=== PATIENT | female | born 1955 | race African-American/Black ===

== ENCOUNTER 2016-05-05 18:42 | Emergency (ER) | payer BC ==
[2016-05-05 18:58] VITALS: BP 121/64
[2016-05-05] MEDS ORDERED: NS 0.9% 1000 ML* 1,000 ML IV ONE (20:12)
[2016-05-05] MEDS ORDERED: Famotidine IV* 10 MG/ML 2 ML (20 mg) IV ONE (20:12)
[2016-05-05] MEDS ORDERED: Ketorolac INJ* 30 MG/ML 1 ML VIAL IV ONE (20:12)
[2016-05-05 20:43] LABS: Hematocrit 38 % (35-47); Hemoglobin 12.3 g/dl (12.0-16.0); Mean Corpuscular HGB Conc 32 g/dl (31-36); Mean Corpuscular Hemoglobin 26 pg (27-31); Mean Corpuscular Volume 80 fL (80-97); Mean Platelet Volume 8 um3 (7.4-10.4); Red Cell Distribution Width 17 % (10.5-15); White Blood Count 10.6 10^3/ul (3.5-10.8)
[2016-05-05 20:47] LABS: Urine Bilirubin Negative (Negative); Urine Glucose Negative (Negative); Urine Nitrite Negative (Negative)
--- NOTE | 2016-05-05 20:53 | RAD ---
INDICATION: Chest pain between the shoulder blades persistent all day. Chest pressure. COMPARISON: January 24, 2015 CT abdomen and January 09, 2013 chest radiograph. TECHNIQUE: Dual energy PA and routine lateral views of the chest were obtained. REPORT: Elevated lung volumes with increased AP thoracic diameter. No alveolar consolidation, focal pulmonary lesion, pleural effusion, pneumothorax. Negative for cardiomegaly. Unremarkable central pulmonary vasculature. Fusiform midline retrocardiac density corresponds with a hiatal hernia based on correlation with prior CT. IMPRESSION: Stigmata of probable chronic obstructive pulmonary disease. No acute cardiopulmonary process evident.
[2016-05-05 20:56] LABS: BUN/Creatinine Ratio 12.7 (8-20); Calcium 9.1 mg/dL (8.6-10.3); EGFR Non-African American 96.4 (>60); Globulin 3.1 g/dL (2-4); Magnesium 1.8 mg/dL (1.9-2.7); Potassium 3.8 mmol/L (3.5-5.0); Total Bilirubin 0.4 mg/dL (0.2-1.0); Total Protein 7.1 g/dL (6.4-8.9)
[2016-05-05] MEDS ORDERED: Methocarbamol TAB* 500 MG PO ONE (21:24)
[2016-05-05] MEDS ORDERED: Magnesium Oxide TAB* 400 MG PO ONE (21:24)
[2016-05-05] MEDS ORDERED: HYDROmorphone INJ* 1 MG/ML CARPUJECT SYRINGE IV SLOW PU ONE (21:47)
--- NOTE | 2016-05-05 23:46 | ED ---
Abby Giles Anna, scribed for Umang Murphy MD on 05/05/16 at 2013 . HPI Chest Pain - HPI Summary HPI Summary: Patient is a 61 y/o female coming to [facility] presenting with burning chest pain that began this morning. It has radiated to her back and is described as a sharp pain there, especially severe on her left side, radiating downwards. The pain is exacerbated by deep breaths and movement. Denies nausea, vomiting, diarrhea, and constipation. She ate oatmeal and [place] food today. She had a recent upper ear infection that was treated with antibiotics. She had a fall last week but did not hurt anything at the time. - History of Current Complaint Chief Complaint: EDChestPainROMI Time Seen by Provider: 05/05/16 20:06 Hx Obtained From: Patient Onset/Duration: Started Hours Ago, Still Present Pain Intensity: 7 Pain Scale Used: 0-10 Numeric Chest Pain Radiates: Yes Chest Pain Radiates To:: Back Character: Burning - Allergy/Home Medications Allergies/Adverse Reactions: Allergies Allergy/AdvReac Type Severity Reaction Status Date / Time Sulfa Drugs Allergy Intermediate Hives Verified 04/28/16 14:59 PMH/Surg Hx/FS Hx/Imm Hx Endocrine/Hematology History: Reports: Hx Thyroid Disease - HYPOTHYROID Denies: Hx Diabetes, Hx Anemia Cardiovascular History: Reports: Hx Valvular Heart Disease - mitral valve prolapse Denies: Hx Congestive Heart Failure, Hx Hypertension, Hx Pacemaker/ICD GI History: Reports: Hx Gastroesophageal Reflux Disease - ON MEDICATION FOR, Other GI Disorders - GERD, ? IBS Denies: Hx Jaundice History: Denies: Hx Dialysis, Hx Renal Disease Musculoskeletal History: Reports: Hx Arthritis - OSTEO, BACK AND KNEES, Hx Orthopedic Injury Sensory History: Reports: Hx Contacts or Glasses Denies: Hx Hearing Aid Opthamlomology History: Reports: Hx Contacts or Glasses Neurological History: Reports: Other Neuro Impairments/Disorders - L5-S1 PAIN INJECTION Psychiatric History: Reports: Hx Anxiety - ON MEDICATION FOR, Hx Depression - ON MEDICATION FOR Denies: Hx Panic Disorder - Surgical History Surgery Procedure, Year, and Place: SEVERAL FOOT SURGERIES-(LEXX) [facility] REPA[facility]- Lt KNEE -Partial thyroidectomy (cyst) Rt HAND - Hx Anesthesia Reactions: No Infectious Disease History: No Infectious Disease History: Denies: Traveled Outside the [place] in Last 30 Days - Family History Known Family History: Positive: Renal Disease, Other - arthritis, [place] - Social History Alcohol Use: Occasionally Substance Use Type: Reports: Prescribed Substance Use Comment - Amount & Last Used: Tramadol ER Smoking Status (MU): Heavy Every Day Tobacco Smoker Type: Cigarettes Amount Used/How Often: 1 ppd Have You Smoked in the Last Year: Yes Review of Systems Positive: Chest Pain Positive: Myalgia - back pain All Other Systems Reviewed And Are Negative: Yes Physical Exam - Summary Physical Exam Summary: VITAL SIGNS: Reviewed. GENERAL: Patient is an obese female who is lying comfortable in the stretcher. Patient is not in any acute respiratory distress. HEAD AND FACE: No signs of trauma. No ecchymosis, hematomas or skull depressions. No sinus tenderness. EYES: PERRLA, EOMI x 2, No injected conjunctiva, no nystagmus. EARS: Hearing grossly intact. Ear canals and tympanic membranes are within normal limits. MOUTH: Oropharynx within normal limits. NECK: Supple, trachea is midline, no adenopathy, no JVD, no carotid bruit, no c- spine tenderness, neck with full ROM. CHEST: Symmetric, no tenderness at palpation LUNGS: Clear to auscultation bilaterally. No wheezing or crackles. CVS: Regular rate and rhythm, S1 and S2 present, no murmurs or gallops appreciated. ABDOMEN: Soft, non-tender. No signs of distention. No rebound no guarding, and no masses palpated. Bowel sounds are normal. EXTREMITIES: FROM in all major joints, no edema, no cyanosis or clubbing. NEURO: Alert and oriented x 3. No acute neurological deficits. Speech is normal and follows commands. SKIN: Dry and warm Back: No vertebral tenderness. positive muscle spasm and tenderness in the left upper back. Triage Information Reviewed: Yes Vital Signs On Initial Exam: Initial Vitals Temp Pulse Resp BP Pulse Ox 97.6 F 85 16 121/64 99 05/05/16 18:52 05/05/16 18:52 05/05/16 18:52 05/05/16 18:52 05/05/16 18:52 Vital Signs Reviewed: Yes Diagnostics - Vital Signs Vital Signs Temp Pulse Resp BP Pulse Ox 05/05/16 18:52 97.6 F 85 16 121/64 99 - Laboratory Lab Results: Lab Results 05/05/16 05/05/16 05/05/16 Range/Units 20:27 20:27 20:27 WBC 10.6 (3.5-10.8) 10^3/ul RBC 4.80 (4.0-5.4) 10^6/ul Hgb 12.3 (12.0-16.0) g/dl Hct 38 (35-47) % MCV 80 (80-97) fL MCH 26 L (27-31) pg MCHC 32 (31-36) g/dl RDW 17 H (10.5-15) % Plt Count 248 (150-450) 10^3/ul MPV 8 (7.4-10.4) um3 Neut % (Auto) 49.4 (38-83) % Lymph % (Auto) 42.7 (25-47) % [place] % (Auto) 6.3 (1-9) % Eos % (Auto) 1.2 (0-6) % Baso % (Auto) 0.4 (0-2) % Absolute Neuts (auto) 5.2 (1.5-7.7) 10^3/ul Absolute Lymphs (auto) 4.5 (1.0-4.8) 10^3/ul Absolute Monos (auto) 0.7 (0-0.8) 10^3/ul Absolute Eos (auto) 0.1 (0-0.6) 10^3/ul Absolute Basos (auto) 0 (0-0.2) 10^3/ul Absolute Nucleated RBC 0 10^3/ul Nucleated RBC % 0 Sodium 137 (133-145) mmol/L Potassium 3.8 (3.5-5.0) mmol/L Chloride 101 (101-111) mmol/L Carbon Dioxide 28 (22-32) mmol/L Anion Gap 8 (2-11) mmol/L BUN 8 (6-24) mg/dL Creatinine 0.63 (0.51-0.95) mg/dL Est GFR ( Amer) 124.0 (>60) Est GFR (Non-Af Amer) 96.4 (>60) BUN/Creatinine Ratio 12.7 (8-20) Glucose 89 (70-100) mg/dL Lactic Acid (0.5-2.0) mmol/L Calcium 9.1 (8.6-10.3) mg/dL Magnesium 1.8 L (1.9-2.7) mg/dL Total Bilirubin 0.40 (0.2-1.0) mg/dL AST 13 (13-39) U/L ALT 14 (7-52) U/L Alkaline Phosphatase 87 (34-104) U/L CK-MB (CK-2) 3.3 (0.6-6.3) ng/mL Troponin I 0.00 (<0.04) ng/mL Total Protein 7.1 (6.4-8.9) g/dL Albumin 4.0 (3.2-5.2) g/dL Globulin 3.1 (2-4) g/dL Albumin/Globulin Ratio 1.3 (1-3) Amylase 18 L (29-103) U/L Lipase 11 (11.0-82.0) U/L Urine Color Straw Urine Appearance Clear Urine pH 6.0 (5-9) Ur Specific [place] 1.004 L (1.010-1.030) Urine Protein Negative (Negative) Urine Ketones Negative (Negative) Urine Blood Negative (Negative) Urine Nitrate Negative (Negative) Urine Bilirubin Negative (Negative) Urine Urobilinogen Negative (Negative) Ur Leukocyte Esterase Negative (Negative) Urine Glucose Negative (Negative) 05/05/16 Range/Units 20:27 WBC (3.5-10.8) 10^3/ul RBC (4.0-5.4) 10^6/ul Hgb (12.0-16.0) g/dl Hct (35-47) % MCV (80-97) fL MCH (27-31) pg MCHC (31-36) g/dl RDW (10.5-15) % Plt Count (150-450) 10^3/ul MPV (7.4-10.4) um3 Neut % (Auto) (38-83) % Lymph % (Auto) (25-47) % [place] % (Auto) (1-9) % Eos % (Auto) (0-6) % Baso % (Auto) (0-2) % Absolute Neuts (auto) (1.5-7.7) 10^3/ul Absolute Lymphs (auto) (1.0-4.8) 10^3/ul Absolute Monos (auto) (0-0.8) 10^3/ul Absolute Eos (auto) (0-0.6) 10^3/ul Absolute Basos (auto) (0-0.2) 10^3/ul Absolute Nucleated RBC 10^3/ul Nucleated RBC % Sodium (133-145) mmol/L Potassium (3.5-5.0) mmol/L Chloride (101-111) mmol/L Carbon Dioxide (22-32) mmol/L Anion Gap (2-11) mmol/L BUN (6-24) mg/dL Creatinine (0.51-0.95) mg/dL Est GFR ( Amer) (>60) Est GFR (Non-Af Amer) (>60) BUN/Creatinine Ratio (8-20) Glucose (70-100) mg/dL Lactic Acid 1.1 (0.5-2.0) mmol/L Calcium (8.6-10.3) mg/dL Magnesium (1.9-2.7) mg/dL Total Bilirubin (0.2-1.0) mg/dL AST (13-39) U/L ALT (7-52) U/L Alkaline Phosphatase (34-104) U/L CK-MB (CK-2) (0.6-6.3) ng/mL Troponin I (<0.04) ng/mL Total Protein (6.4-8.9) g/dL Albumin (3.2-5.2) g/dL Globulin (2-4) g/dL Albumin/Globulin Ratio (1-3) Amylase (29-103) U/L Lipase (11.0-82.0) U/L Urine Color Urine Appearance Urine pH (5-9) Ur Specific [place] (1.010-1.030) Urine Protein (Negative) Urine Ketones (Negative) Urine Blood (Negative) Urine Nitrate (Negative) Urine Bilirubin (Negative) Urine Urobilinogen (Negative) Ur Leukocyte Esterase (Negative) Urine Glucose (Negative) Result Diagrams: 05/05/16 20:27 05/05/16 20:27 Lab Statement: Any lab studies that have been ordered have been reviewed, and results considered in the medical decision making process. - Radiology CXR Xray Interpretation: No Acute Changes Radiology Interpretation Completed By: Radiologist - IMPRESSION: Stigmata of probable chronic obstructive pulmonary disease. No acute cardiopulmonary process evident. - EKG 18:44 Cardiac Rate: NL - 84 bpm EKG Rhythm: Sinus Rhythm EKG Interpretation: No S/T elevation Re-Evaluation - Re-Evaluation First Eval Re-Evaluation Time: 23:43 Change: Improved - Feeling better and ready to go home. Chest Pain Course/Dx - Course Assessment/Plan: Patient is a 61 y/o female coming to [facility] presenting with burning chest pain that began this morning. It has radiated to her back and is described as a sharp pain there, especially severe on her left side, radiating downwards. The pain is exacerbated by deep breaths and movement. Denies nausea, vomiting, diarrhea, and constipation. She ate oatmeal and [place] food today. She had a recent upper ear infection that was treated with antibiotics. She had a fall last week but did not hurt anything at the time. Blood work wnl. Except for Magnesium of 1.8. She was given PO magnesium. CXR: No acute cardiopulmonary disease. P/E patient has mild epigastric tenderness for which she was given Pepcid and her symptoms improved. She has muscle tenderness in the right upper back. She was given Toradol and robaxin. After medications all her symptoms have improved. I discussed all the findings and test results with the patient and patient. Patient was instructed to return to the emergency room immediately if any of the symptoms return or worsens. They understand and agree. They were explained the possibility of an early abdominal pathology which was not detected at this time despite the physical exam and testing. They understand and agree. Abdominal exam before discharge: Soft,NT. No signs of distention. BS present. No rebound no guarding, and no masses palpated. Patient is alert and oriented. Patient is hemodynamically stable. Patient is to follow up with primary care physician in the next 24 hours. Patient and patients parents agree and understands. - Chest Pain Differential Diagnosis/HQI/PQRI: ACS, Angina, Chest Wall, Lower Respiratory Infection - Diagnoses Provider Diagnoses: Abdominal pain, Back pain Discharge - Discharge Plan Condition: Stable Disposition: HOME Prescriptions: Famotidine TAB* [Pepcid TAB*] 20 mg PO BID #20 tab oxyCODONE/Acetamin 5/325 MG* [Percocet 5/325 TAB*] 1 tab PO Q6H PRN #10 tab MDD max 4 tabs /day PRN Reason: Pain Patient Education Materials: Famotidine (By mouth), Oxycodone/Acetaminophen ( By mouth), Abdominal Pain (ED), Back Pain (ED) Referrals: Monroe Haile MD [Primary Care Provider] - Additional Instructions: Follow up with primary care physician within 24 hours. Return to the emergency department for changing or worsening symptoms. The documentation as recorded by the Abby quintero Anna accurately reflects the service I personally performed and the decisions made by Jeffrey echavarria Walter, MD.
== END 2016-05-06 00:06 | disposition home or self-care (01) ==
LOC: ED 18:42
DX: R07.9 Chest pain, unspecified (principal); R10.9 Unspecified abdominal pain; M54.9 Dorsalgia, unspecified; F17.210 Nicotine dependence, cigarettes, uncomplicated
CPT/HCPCS: 36415; 71020; 80053; 81003; 82150; 82553; 83605; 83690; 83735; 84484; 85025; 93005; 96361; 96374; 96375; 99283; A9270-GY; J1885

== ENCOUNTER 2016-07-05 10:50 | Emergency (ER) | payer BC ==
[2016-07-05] MEDS ORDERED: HYDROmorphone INJ* 1 MG/ML CARPUJECT SYRINGE IV ONE (12:28)
[2016-07-05] MEDS ORDERED: NS 0.9% 1000 ML* 1,000 ML IV ONE (12:28)
[2016-07-05] MEDS ORDERED: Ondansetron INJ* 2 MG/ML VIAL IV ONE (12:28)
[2016-07-05 12:54] LABS: Hematocrit 39 % (35-47); Hemoglobin 12.8 g/dl (12.0-16.0); Mean Corpuscular HGB Conc 33 g/dl (31-36); Mean Corpuscular Hemoglobin 26 pg (27-31); Mean Corpuscular Volume 80 fL (80-97); Mean Platelet Volume 8 um3 (7.4-10.4); Red Blood Count 4.87 10^6/ul (4.0-5.4); Red Cell Distribution Width 17 % (10.5-15); White Blood Count 7.2 10^3/ul (3.5-10.8)
[2016-07-05 13:10] LABS: Albumin 3.9 g/dL (3.2-5.2); BUN/Creatinine Ratio 15.6 (8-20); C Reactive Protein 9.27 mg/L (< 5.00); Calcium 9.1 mg/dL (8.6-10.3); EGFR African American 121.7 (>60); EGFR Non-African American 94.7 (>60); Globulin 3.2 g/dL (2-4); Potassium 4.1 mmol/L (3.5-5.0); Total Bilirubin 0.4 mg/dL (0.2-1.0); Total Protein 7.1 g/dL (6.4-8.9)
[2016-07-05 13:11] LABS: Troponin I 0.01 ng/mL (<0.04)
[2016-07-05] MEDS ORDERED: Iohexol 350* (CONTRAST) 500 ML MDV IV ONE (13:45)
[2016-07-05 14:31] VITALS: BP 119/71
--- NOTE | 2016-07-05 14:36 | RAD ---
INDICATION: Back pain radiating to the chest and abdomen. Hypertension and tobacco use. COMPARISON: May 05, 2016 chest radiograph and January 24, [address] TECHNIQUE: Multidetector CT images were obtained from the lung apices to the ischial tuberosities with 100 mL Omnipaque 350 IV contrast. No oral contrast administered. Multiplanar reformation with maximum intensity projection and 3-D arterial volume rendering. CHEST REPORT: Rarefaction of interstitial markings consistent with emphysema. No focal pulmonary lesions evident. Negative for pleural effusions. Small fat-containing LEFT posterior medial diaphragmatic hernia without change. Large RIGHT paratracheal lymph node measuring up to 2.8 cm short axis diameter and up to 4.4 cm cephalocaudal. Upper normal 1 cm short axis diameter RIGHT suprahilar lymph node. Negative for axillary or visible supraclavicular adenopathy. Negative for cardiomegaly or pericardial effusion. Normal diameter thoracic aorta with minimal atherosclerotic plaque. Negative for dissection of the thoracic aorta. Variant common origin of the LEFT common carotid and RIGHT brachiocephalic arteries. The common carotid arteries are tortuous and ascend in the respective para midline positions at the level of the larynx. Negative for suspicious thoracic osseous lesions. CHEST IMPRESSION: 1. Normal diameter thoracic aorta with minimal atherosclerotic plaque. Negative for dissection of the thoracic aorta. 2. Large RIGHT paratracheal lymph node measuring up to 2.8 cm short axis diameter and up to 4.4 cm cephalocaudal. This lymph node is new compared with a CT exam of the neck from July 12, 2014. Consider small cell lung carcinoma as well as metastatic lesions and lymphoproliferative disorders. ABDOMEN PELVIS REPORT: Assessment of the abdominal pelvic viscera is limited due to arterial phase only series. No CT abnormality of the liver, gallbladder, pancreas, spleen evident accounting for arterial phase enhancement. Moderate sliding-type hiatal hernia without change. No additional CT abnormality of the upper GI. No CT abnormality of the small bowel loops or appendix visualized at the LEFT lower quadrant reference axial images [id number]. Mild colonic diverticulosis without evidence for acute diverticulitis. Negative for ascites or free air. Small fat-containing supraumbilical ventral hernia without evidence for inflammatory change or increase in size compared with the prior exam. Unchanged small fat-containing umbilical hernia without acute finding. Normal adrenal glands. Unremarkable kidneys with symmetric cortical enhancement. Negative for hydronephrosis. Unremarkable ureters and urinary bladder. No abnormality of the uterus or adnexal regions evident. Negative for lymphadenopathy. Normal diameter abdominal aorta and iliac arteries with minimal atherosclerotic plaque. Negative for aortic dissection. Negative for suspicious focal osseous lesions. Bilateral L5 spondylolysis and grade 2-3 L5-S1 anterolisthesis without gross change. Advanced degenerative spondylosis at L3-L4 and L5-S1 with associated reactive endplate change without significant interval change. ABDOMEN PELVIS IMPRESSION: 1. Negative for aneurysm or dissection of the abdominal aorta. 2. Negative for lymphadenopathy. 3. Moderate sliding-type hiatal hernia without change. Mild colonic diverticulosis without evidence for acute diverticulitis. Results discussed with Dr. Byrnes 07/05/2016 2:32 PM EDT
[2016-07-05 15:53] LABS: Urine Bilirubin Negative (Negative); Urine Glucose Negative (Negative); Urine Nitrite Negative (Negative)
[2016-07-05] MEDS ORDERED: oxyCODONE/Acetamin 5/325 MG* TAB PO ONE (16:16)
--- NOTE | 2016-07-05 16:28 | ED ---
Tray Giles Alok, scribed for Chanel Byrnes MD on 07/05/16 at 1308 . Abdominal Pain/Female - HPI Summary HPI Summary: 61 y/o female presents to the ED with c/o of epigastric and lower quadrant abd pain radiating to upper back. Pt states that her symptoms began 1 week ago starting with a sharp shoulder pain which worsened 3 days ago to burning abd pain and back pain worse than baseline, currently registering at a 10/10 in severity. Pt denies any aggravation of her symptoms from deep breaths and states that nothing makes her symptoms better/worse. Pt also denies any N/V Pt has PMHx of GERD, hyperthyroid, and Fibromyalgia, as well as depression and anxiety. Pt denies any medications, recent travels, or PMHx of [place]. - History of Current Complaint Chief Complaint: EDAbdPain Stated Complaint: ABD PAIN / BACK PAIN Time Seen by Provider: 07/05/16 12:18 Hx Obtained From: Patient ?: No Onset/Duration: Gradual Onset, Lasting Days, Still Present Timing: Constant Severity Initially: Moderate Severity Currently: Moderate Pain Intensity: 10 Pain Scale Used: 0-10 Numeric Location: Discrete At: RLQ, Discrete At: LLQ, Epigastric, Other - Shoulder Radiates: Yes Radiates to: Back Character: Sharp, Burning Aggravating Factor(s): Nothing Alleviating Factor(s): Nothing Associated Signs and Symptoms: Positive: Back Pain. Negative: Fever, Nausea, Vomiting Allergies/Adverse Reactions: Allergies Allergy/AdvReac Type Severity Reaction Status Date / Time Sulfa Drugs Allergy Intermediate Hives Verified 07/05/16 10:53 PMH/Surg Hx/FS Hx/Imm Hx Endocrine/Hematology History: Reports: Hx Thyroid Disease - HYPOTHYROID Denies: Hx Diabetes, Hx Anemia Cardiovascular History: Reports: Hx Valvular Heart Disease - mitral valve prolapse Denies: Hx Congestive Heart Failure, Hx Hypertension, Hx Pacemaker/ICD GI History: Reports: Hx Gastroesophageal Reflux Disease - ON MEDICATION FOR, Other GI Disorders - GERD, ? IBS Denies: Hx Jaundice History: Denies: Hx Dialysis, Hx Renal Disease Musculoskeletal History: Reports: Hx Arthritis - OSTEO, BACK AND KNEES, Hx Orthopedic Injury Sensory History: Reports: Hx Contacts or Glasses Denies: Hx Hearing Aid Opthamlomology History: Reports: Hx Contacts or Glasses Neurological History: Reports: Other Neuro Impairments/Disorders - L5-S1 PAIN INJECTION Psychiatric History: Reports: Hx Anxiety - ON MEDICATION FOR, Hx Depression - ON MEDICATION FOR Denies: Hx Panic Disorder - Surgical History Surgery Procedure, Year, and Place: SEVERAL FOOT SURGERIES-(LEXX) [facility]- [facility] -Partial thyroidectomy (cyst) Rt HAND - Hx Anesthesia Reactions: No Infectious Disease History: No Infectious Disease History: Denies: Traveled Outside the [place] in Last 30 Days - Family History Known Family History: Positive: Renal Disease, Other - arthritis, [place] - Social History Lives: Alone Alcohol Use: Occasionally Alcohol Amount: 2-3 beers a couple times per week- pt seems evasive Substance Use Type: Reports: Prescribed Substance Use Comment - Amount & Last Used: Tramadol ER Hx Tobacco Use: Yes Smoking Status (MU): Heavy Every Day Tobacco Smoker Type: Cigarettes Amount Used/How Often: 1 ppd Have You Smoked in the Last Year: Yes Review of Systems Negative: Fever Positive: Abdominal Pain. Negative: Vomiting, Nausea Positive: Other - Back Pain, Shoulder Pain All Other Systems Reviewed And Are Negative: Yes Physical Exam Triage Information Reviewed: Yes Vital Signs On Initial Exam: Initial Vitals Temp Pulse Resp BP Pulse Ox 96.2 F 93 20 154/80 97 07/05/16 10:54 07/05/16 10:54 07/05/16 10:54 07/05/16 10:54 07/05/16 10:54 Vital Signs Reviewed: Yes Appearance: Positive: Well-Appearing, No Pain Distress Skin: Positive: Warm, Skin Color Reflects Adequate Perfusion, Dry Eyes: Positive: EOMI, FAROOQ ENT: Positive: Pharynx normal, TMs normal Neck: Positive: Supple, Nontender Respiratory/Lung Sounds: Positive: Clear to Auscultation, Breath Sounds Present. Negative: Rales, Rhonchi, Wheezes Cardiovascular: Positive: RRR. Negative: Murmur, Rub, Other - Gallops Abdomen Description: Positive: Soft, Other: - Diffuse Belly Pain Bowel Sounds: Positive: Present Musculoskeletal: Positive: Strength/ROM Intact. Negative: Edema Left, Edema Right Neurological: Positive: Sensory/Motor Intact, Alert, Oriented to Person Place, Time, CN Intact II-III Psychiatric: Positive: Affect/Mood Appropriate Diagnostics - Vital Signs Vital Signs Temp Pulse Resp BP Pulse Ox 07/05/16 10:54 96.2 F 93 20 154/80 97 - Laboratory Lab Results: Lab Results 07/05/16 07/05/16 07/05/16 Range/Units 12:43 12:43 12:43 WBC 7.2 (3.5-10.8) 10^3/ul RBC 4.87 (4.0-5.4) 10^6/ul Hgb 12.8 (12.0-16.0) g/dl Hct 39 (35-47) % MCV 80 (80-97) fL MCH 26 L (27-31) pg MCHC 33 (31-36) g/dl RDW 17 H (10.5-15) % Plt Count 226 (150-450) 10^3/ul MPV 8 (7.4-10.4) um3 Neut % (Auto) 47.4 (38-83) % Lymph % (Auto) 43.9 (25-47) % Bremer % (Auto) 6.3 (1-9) % Eos % (Auto) 1.6 (0-6) % Baso % (Auto) 0.8 (0-2) % Absolute Neuts (auto) 3.4 (1.5-7.7) 10^3/ul Absolute Lymphs (auto) 3.2 (1.0-4.8) 10^3/ul Absolute Monos (auto) 0.5 (0-0.8) 10^3/ul Absolute Eos (auto) 0.1 (0-0.6) 10^3/ul Absolute Basos (auto) 0.1 (0-0.2) 10^3/ul Absolute Nucleated RBC 0 10^3/ul Nucleated RBC % 0 Sodium 138 (133-145) mmol/L Potassium 4.1 (3.5-5.0) mmol/L Chloride 103 (101-111) mmol/L Carbon Dioxide 30 (22-32) mmol/L Anion Gap 5 (2-11) mmol/L BUN 10 (6-24) mg/dL Creatinine 0.64 (0.51-0.95) mg/dL Est GFR ( Amer) 121.7 (>60) Est GFR (Non-Af Amer) 94.7 (>60) BUN/Creatinine Ratio 15.6 (8-20) Glucose 100 (70-100) mg/dL Lactic Acid 1.3 (0.5-2.0) mmol/L Calcium 9.1 (8.6-10.3) mg/dL Total Bilirubin 0.40 (0.2-1.0) mg/dL AST 13 (13-39) U/L ALT 14 (7-52) U/L Alkaline Phosphatase 83 (34-104) U/L Troponin I 0.01 (<0.04) ng/mL C-Reactive Protein 9.27 H (< 5.00) mg/L Total Protein 7.1 (6.4-8.9) g/dL Albumin 3.9 (3.2-5.2) g/dL Globulin 3.2 (2-4) g/dL Albumin/Globulin Ratio 1.2 (1-3) Amylase 17 L (29-103) U/L Lipase 13 (11.0-82.0) U/L Urine Color Urine Appearance Urine pH (5-9) Ur Specific Floyd (1.010-1.030) Urine Protein (Negative) Urine Ketones (Negative) Urine Blood (Negative) Urine Nitrate (Negative) Urine Bilirubin (Negative) Urine Urobilinogen (Negative) Ur Leukocyte Esterase (Negative) Urine Glucose (Negative) 07/05/16 Range/Units 15:43 WBC (3.5-10.8) 10^3/ul RBC (4.0-5.4) 10^6/ul Hgb (12.0-16.0) g/dl Hct (35-47) % MCV (80-97) fL MCH (27-31) pg MCHC (31-36) g/dl RDW (10.5-15) % Plt Count (150-450) 10^3/ul MPV (7.4-10.4) um3 Neut % (Auto) (38-83) % Lymph % (Auto) (25-47) % Bremer % (Auto) (1-9) % Eos % (Auto) (0-6) % Baso % (Auto) (0-2) % Absolute Neuts (auto) (1.5-7.7) 10^3/ul Absolute Lymphs (auto) (1.0-4.8) 10^3/ul Absolute Monos (auto) (0-0.8) 10^3/ul Absolute Eos (auto) (0-0.6) 10^3/ul Absolute Basos (auto) (0-0.2) 10^3/ul Absolute Nucleated RBC 10^3/ul Nucleated RBC % Sodium (133-145) mmol/L Potassium (3.5-5.0) mmol/L Chloride (101-111) mmol/L Carbon Dioxide (22-32) mmol/L Anion Gap (2-11) mmol/L BUN (6-24) mg/dL Creatinine (0.51-0.95) mg/dL Est GFR ( Amer) (>60) Est GFR (Non-Af Amer) (>60) BUN/Creatinine Ratio (8-20) Glucose (70-100) mg/dL Lactic Acid (0.5-2.0) mmol/L Calcium (8.6-10.3) mg/dL Total Bilirubin (0.2-1.0) mg/dL AST (13-39) U/L ALT (7-52) U/L Alkaline Phosphatase (34-104) U/L Troponin I (<0.04) ng/mL C-Reactive Protein (< 5.00) mg/L Total Protein (6.4-8.9) g/dL Albumin (3.2-5.2) g/dL Globulin (2-4) g/dL Albumin/Globulin Ratio (1-3) Amylase (29-103) U/L Lipase (11.0-82.0) U/L Urine Color Yellow Urine Appearance Clear Urine pH 6.0 (5-9) Ur Specific Floyd > 1.060 H (1.010-1.030) Urine Protein Negative (Negative) Urine Ketones Negative (Negative) Urine Blood Negative (Negative) Urine Nitrate Negative (Negative) Urine Bilirubin Negative (Negative) Urine Urobilinogen Negative (Negative) Ur Leukocyte Esterase Negative (Negative) Urine Glucose Negative (Negative) Result Diagrams: 07/05/16 12:43 07/05/16 12:43 Lab Statement: Any lab studies that have been ordered have been reviewed, and results considered in the medical decision making process. - CT Chest/Abd/Pelvis CT CT Interpretation: Positive (See Comments) - CHEST IMPRESSION: 1. Normal diameter thoracic aorta with minimal atherosclerotic plaque. Negative for dissection of the thoracic aorta. 2. Large RIGHT paratracheal lymph node measuring up to 2.8 cm short axis diameter and up to 4.4 cm cephalocaudal. This lymph node is new compared with a CT exam of the neck from July 12, 2014. Consider small cell lung carcinoma as well as metastatic lesions and lymphoproliferative disorders. ABDOMEN PELVIS IMPRESSION: 1. Negative for aneurysm or dissection of the abdominal aorta. 2. Negative for lymphadenopathy. 3. Moderate sliding-type hiatal hernia without change. Mild colonic diverticulosis without evidence for acute diverticulitis. CT Interpretation Completed By: Radiologist - EKG 1231 Cardiac Rate: NL EKG Rhythm: Sinus Rhythm - 82 bpm Ectopy: PVCs - One EKG Interpretation: No Q-waves, No ST Elevation EKG Comparison: No Significant Change - Since 05/05/15 Abdominal Pain Fem Course/Dx - Course Course Of Treatment: 61 yo female with pain she described as initially between her shoulder blades a few days ago and now as belly pain radiating to back that moves to different places. her pain is a 10/10 she already had an u/s of the abdominal aorta that was negative. CTA chest/abd/pelvis shows rt paratracheal node. Pt is aware of this finding and so is Dr. Haile, her pain seems likely unrelated and Dr. Haile is planning on seeing the pt as an outpt in the next 1-2 days. She will be going with a short course of pain meds - Diagnoses Differential Diagnosis: Positive: Other - Incidental finding: Right paratracheal mass Provider Diagnoses: Abdominal pain, paratracheal lymph node - Provider Notifications Discussed Care Of Patient With: Dr Haile @ [id number] Discharge - Discharge Plan Condition: Stable Disposition: HOME Prescriptions: oxyCODONE/Acetamin 5/325 MG* [Percocet 5/325 TAB*] 1 tab PO Q8H PRN #10 tab MDD 3 PRN Reason: Pain Referrals: Monroe Haile MD [Primary Care Provider] - The documentation as recorded by the Tray quintero Alok accurately reflects the service I personally performed and the decisions made by me, Chanel Byrnes MD.
== END 2016-07-05 16:57 | disposition home or self-care (01) ==
LOC: ED 10:50
DX: R10.84 Generalized abdominal pain (principal); M54.9 Dorsalgia, unspecified; F17.210 Nicotine dependence, cigarettes, uncomplicated
CPT/HCPCS: 36415; 71275; 74174; 80053; 81003; 82150; 83605; 83690; 84484; 85025; 86140; 93005; 96374; 96375; 99283; A9270-GY; J1170; J2405; Q9967

== ENCOUNTER 2016-07-09 01:01 | Observation (INO) | payer BC ==
--- NOTE | 2016-07-09 01:21 | ED ---
HPI Cardiac - HPI Summary HPI Summary: The patient is a 61 year old female presenting to ED for complaint of lightheadedness while standing upright getting ready for bed. Admits to development of progressive mid frontal headache described as 4/10 throbbing sensation non-radiating. Reports associated photophobia. Ongoing epigastric pain radiating to mid scapula, left hip pain radiating to left ankle. Denies fever, diaphoresis, nasal symptoms, sore throat, cough, shortness of breath, dyspnea on exertion, chest pain, palpitations, syncope, nausea, vomiting, diarrhea, change in voiding, hematuria, peripheral edema, unilateral calf pain. History of GERD, hypothyroidism. Denies CAD, HTN, HLP, DM, CKD, pulmonary disease. FH father from septic complications of sacral ulcer and mother from ESRD. PCP Dr. Haile SH: Current smoker. Denies alcohol or recreational substance use. - History of Current Complaint Chief Complaint: EDDizziness Stated Complaint: DIZZINESS Time Seen by Provider: 07/09/16 01:06 - Allergy/Home Medications Allergies/Adverse Reactions: Allergies Allergy/AdvReac Type Severity Reaction Status Date / Time Sulfa Drugs Allergy Intermediate Hives Verified 07/05/16 10:53 PMH/Surg Hx/FS Hx/Imm Hx Endocrine/Hematology History: Reports: Hx Thyroid Disease - HYPOTHYROID Denies: Hx Diabetes, Hx Anemia Cardiovascular History: Reports: Hx Valvular Heart Disease - mitral valve prolapse Denies: Hx Congestive Heart Failure, Hx Hypertension, Hx Pacemaker/ICD GI History: Reports: Hx Gastroesophageal Reflux Disease - ON MEDICATION FOR, Other GI Disorders - GERD, ? IBS Denies: Hx Jaundice History: Denies: Hx Dialysis, Hx Renal Disease Musculoskeletal History: Reports: Hx Arthritis - OSTEO, BACK AND KNEES, Hx Orthopedic Injury Sensory History: Reports: Hx Contacts or Glasses Denies: Hx Hearing Aid Opthamlomology History: Reports: Hx Contacts or Glasses Neurological History: Reports: Other Neuro Impairments/Disorders - L5-S1 PAIN INJECTION Psychiatric History: Reports: Hx Anxiety - ON MEDICATION FOR, Hx Depression - ON MEDICATION FOR Denies: Hx Panic Disorder - Surgical History Surgery Procedure, Year, and Place: SEVERAL FOOT SURGERIES-(LEXX) [facility]- [facility] -Partial thyroidectomy (cyst) Rt HAND - Hx Anesthesia Reactions: No - Family History Known Family History: Positive: Renal Disease, Other - arthritis, [place] - Social History Alcohol Use: Occasionally Alcohol Amount: 2-3 beers a couple times per week- pt seems evasive Substance Use Type: Reports: Prescribed Substance Use Comment - Amount & Last Used: Tramadol ER Hx Tobacco Use: Yes Smoking Status (MU): Heavy Every Day Tobacco Smoker Type: Cigarettes Amount Used/How Often: 1 ppd Have You Smoked in the Last Year: Yes Review of Systems Constitutional: Negative Negative: Fever, Chills, Skin Diaphoresis Positive: Photophobia. Negative: Blurred Vision, Diplopia ENT: Negative Negative: Sore Throat, Nasal Discharge Positive: Other - lightheaded. Negative: Palpitations, Chest Pain Respiratory: Negative Negative: Shortness Of Breath, Cough Positive: Abdominal Pain. Negative: Vomiting, Diarrhea, Nausea Musculoskeletal: Negative Positive: Arthralgia Positive: Headache. Negative: Weakness, Paresthesia, Numbness, Syncope All Other Systems Reviewed And Are Negative: Yes Physical Exam Triage Information Reviewed: Yes Vital Signs Reviewed: Yes Appearance: Positive: Well-Appearing, No Pain Distress, Well-Nourished Skin: Positive: Warm, Skin Color Reflects Adequate Perfusion, Dry Head/Face: Positive: Normal Head/Face Inspection Eyes: Positive: Normal, EOMI, FAROOQ, Conjunctiva Clear ENT: Positive: Normal ENT inspection, Hearing grossly normal, Pharynx normal, TMs normal Neck: Positive: Supple, Nontender, No Lymphadenopathy Respiratory/Lung Sounds: Positive: Clear to Auscultation, Breath Sounds Present. Negative: Decreased Breath Sounds, Rales, Rhonchi, Wheezes, Unable to speak in full sentences Cardiovascular: Positive: Normal - radial pulse 2+, RRR, S1, S2. Negative: Murmur, Rub, Leg Edema Left, Leg Edema Right, S3 Abdomen Description: Positive: No Organomegaly, Soft, Other: - mild epigastric tenderness. Negative: CVA Tenderness (R), CVA Tenderness (L), Distended, Guarding, Hepatomegaly, Peritoneal Signs, Splenomegaly Bowel Sounds: Positive: Present Musculoskeletal: Positive: Normal, Strength/ROM Intact - 5/5/ muscle strength UE /LE bilaterally; no drift, Other - no midline or paraspinous thoracic or lumbar tenderness Neurological: Positive: Normal, Sensory/Motor Intact, Alert, Oriented to Person Place, Time, CN Intact II-III, Reflexes Intact - brachioradialis and patellar reflex 2+, Babinski Bilateral - downward, Finger to Nose - normal, Facial Symmetry, Speech Normal. Negative: Receptive Aphasia, Expressive Aphasia, Dysarthric Aphasia Psychiatric: Positive: Normal AVPU Assessment: Alert Diagnostics - Laboratory Result Diagrams: 07/09/16 00:25 07/09/16 00:25 Lab Statement: Any lab studies that have been ordered have been reviewed, and results considered in the medical decision making process. Disposition - Course Assessment/Plan: Patient presents for gradual mild headache and lightheadedness. EKG NSR with PAC without acute ischemia. Labs significant for WBC 11.2 ang glucose 129 but otherwise unremarkable. ESR pending. CT Brain pending. - Diagnoses Provider Diagnoses: Lightheaded - Physician Notifications Discussed Care Of Patient With: signed out to Dr. Pinky Renee Discharge - Discharge Plan Condition: Stable Disposition: OTHER Discharge Disposition Comment: signed out to Dr. Pinky Anton0
[2016-07-09 01:48] LABS: Hematocrit 36 % (35-47); Hemoglobin 11.5 g/dl (12.0-16.0); Mean Corpuscular HGB Conc 32 g/dl (31-36); Mean Corpuscular Hemoglobin 26 pg (27-31); Mean Corpuscular Volume 81 fL (80-97); Mean Platelet Volume 9 um3 (7.4-10.4); Red Blood Count 4.44 10^6/ul (4.0-5.4); Red Cell Distribution Width 17 % (10.5-15); White Blood Count 11.2 10^3/ul (3.5-10.8)
[2016-07-09 01:53] LABS: BUN/Creatinine Ratio 12.8 (8-20); Blood Urea Nitrogen 11 mg/dL (6-24); CO2 Carbon Dioxide 26 mmol/L (22-32); Calcium 8.8 mg/dL (8.6-10.3); Chloride 104 mmol/L (101-111); EGFR African American 86.6 (>60); EGFR Non-African American 67.3 (>60); Glucose 129 mg/dL (70-100); Sodium 138 mmol/L (133-145)
[2016-07-09 01:55] LABS: Anion Gap 8 mmol/L (2-11)
[2016-07-09 02:27] LABS: Erythrocyte Sed Rate 23 mm/Hr (0-30)
[2016-07-09] MEDS ORDERED: NS 0.9% 1000 ML* 1,000 ML IV ONE (02:31)
[2016-07-09] MEDS ORDERED: Aspirin TAB* 325 MG PO ONE (06:36)
[2016-07-09] MEDS ORDERED: Nitroglycerin TAB 0.4 MG* 0.4 MG TAB SL ONE (06:36)
--- NOTE | 2016-07-09 08:04 | RAD ---
INDICATION: Frontal headache. COMPARISON: Comparison is made to prior CT brain from July 12, 2014. TECHNIQUE: Contiguous axial sections of the brain were obtained from the skull base to the vertex without contrast. FINDINGS: The ventricles, cisterns and sulci are enlarged consistent with age-related atrophy. There are small areas of decreased density in the subcortical and periventricular white matter suggestive of mild chronic small vessel ischemic changes. No other focal abnormality or mass effect is seen. There is no evidence for hemorrhage. No significant focal osseous abnormality is seen. The visualized portion of the paranasal sinuses and mastoid air cells appear clear. IMPRESSION: 1. NO EVIDENCE FOR GROSS ACUTE INFARCT, MASS EFFECT OR HEMORRHAGE. 2. FINDINGS MOST CONSISTENT WITH MILD CHRONIC SMALL VESSEL ISCHEMIC CHANGES.
[2016-07-09] MEDS ORDERED: ALPRAZolam TAB* 0.5 MG PO PRN (11:38)
[2016-07-09] MEDS ORDERED: Acetaminophen TAB* 325 MG PO PRN (11:41)
[2016-07-09 11:42] LABS: ALT 16 U/L (7-52); Albumin 3.6 g/dL (3.2-5.2); Alkaline Phosphatase 93 U/L (34-104); C Reactive Protein 14.02 mg/L (< 5.00); Globulin 2.9 g/dL (2-4); Total Protein 6.5 g/dL (6.4-8.9)
[2016-07-09 11:43] LABS: AST 18 U/L (13-39)
[2016-07-09 11:57] LABS: TSH (Thyroid Stimulating Horm) 0.18 mcIU/mL (0.34-5.60)
[2016-07-09 12:05] LABS: Ferritin < 10.0 ng/mL (11-307)
--- NOTE | 2016-07-09 12:09 | HP ---
CC: Monroe Haile MD HISTORY AND PHYSICAL: DATE OF ADMISSION: 07/09/16 HISTORY OF PRESENT ILLNESS: Amparo Anderson is a 61-year-old woman admitted with chest and abdominal pain and near syncope. She also has an enlarged lymph node on the CT of her chest. The patient has been having recent upper abdominal pain going into her chest, shoulder blades, rib cage. She was visiting her sister in [place] and it got worse after she came home, so she came to the emergency room on 07/05/16. At that time, she underwent a workup, which included a CTA of the chest, abdomen and pelvis. This showed an enlarged right paratracheal lymph node, but otherwise did not reveal the source of her pain. She had already had an ultrasound of her abdomen ordered that was negative. She was discharged on Percocet, which she did not take. She has continued to have pain since then. Yesterday evening she ate supper around 6 to 6:30 p.m. She tried to sleep around 8 to 9 p.m. and was uncomfortable, could not sleep. Around 11:30 p.m., she got up and went into the living room. While there, she turned and all of a sudden felt like she was going to pass out. This made her feel that she should come to the emergency room. This was also accompanied by terrible frontal headache when she lay down before she called the ambulance. She has not been sleeping well because of the pain she has been having. She said in the last few days, she has had a total of 7 hours of sleep. She has never, however, felt dizzy like she was going to pass out before. PAST MEDICAL HISTORY: Significant for the following medical problems: 1. Hypothyroidism, status post a partial thyroidectomy. 2. Fibromyalgia. 3. Depression. 4. Hyperhidrosis. 5. Tobacco abuse. 6. History of vitamin D deficiency, resolved. 7. GERD. 8. Osteoarthritis. 9. Obesity. 10. History of anxiety. PRIOR SURGERIES: Include: 1. Hemithyroidectomy. 2. Foot surgery for bunions and hammertoes. 3. Surgery on her right thumb, excision of a trapezium and proximal third of the trapezoid with suture suspension arthroplasty. 4. Left knee arthroscopy. 5. T and A, age 19. CURRENT MEDICATIONS: 1. Levothyroxine 200 mcg daily. 2. Bupropion extended release 150 mg daily. 3. Alprazolam 0.5 mg p.r.n. anxiety. 4. Omeprazole 20 mg (? dose) once a day. 5. Cymbalta (duloxetine) 60 mg once a day. 6. Multivitamins 1 a day. 7. Vitamin D drops 6 to 7 drops daily. 8. She has taken ibuprofen in the past ?taking now. 9. Lyrica 50 mg three times a day. 10. Tramadol XR 100 mg once a day. ALLERGIES: SULFA causes hives. FAMILY HISTORY: Father at age 83. He had a history of dementia, rheumatoid arthritis. He had a coccygeal ulcer, which did not heal. He had a history of depression. Mother had kidney failure, type 2 diabetes and is on dialysis, had a history of hypertension. She has 3 siblings. One sister has lupus. All her siblings have arthritis and depression. She has 2 children in good health. HABITS: Almost a pack of cigarettes a day since age 15 aside from a 2- year hiatus. EtOH; 2 drinks a week. Caffeine; drinks some ice tea, chocolate. SOCIAL AND PERSONAL HISTORY: The patient lives alone. She has 2 adult children in the area, grandchildren. 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 REVIEW OF SYSTEMS: Generally, she has not been feeling well. She is not sleeping because of the pain. She is not physically active. She does do some walking, but no formal exercise. She denied fevers, chills. She always sweats a lot. Her appetite is good. Her weight has not changed. Skin: Negative. HEENT: She has felt some discomfort in her throat. Nodes: Negative. Heme: She is always bruised easily. Breasts: Negative. Endocrine: See above. Respiratory: She had some dyspnea with palpitation she experienced in the ambulance. Cardiovascular: See above. GI: See above. Her bowel movements are normal. She does feel somewhat queasy now, but has not up until now. : Negative. 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 Musculoskeletal: Everything is achy due to her fibromyalgia. Neuro: See above. Psychiatric: History of anxiety and depression. PHYSICAL EXAMINATION GENERAL: She is a middle-aged -[place] woman in no acute distress. When I saw her, she was asleep on the stretcher in the emergency room. VITAL SIGNS: Initially in the emergency room, blood pressure 129/68, pulse 94, respirations 20, temperature 98.3, O2 sat 95%. Most recent vital signs; blood pressure 108/52, pulse 78, respirations 17, temperature afebrile, O2 sat 96%. HEENT: Atraumatic, normocephalic. Full EOMs. TMs are unremarkable. Mouth: Pharynx shows teeth in poor repair. Several teeth are missing and some teeth are broken off. NODES: Without adenopathy. CHEST: Clear. HEART: Normal S1, S2. There are no murmurs, gallops, or rubs. ABDOMEN: Soft, with tenderness in the epigastric right upper quadrant and right lower quadrant areas without rebound or guarding. There are no masses, organomegaly. Bowel sounds are present. EXTREMITIES: Without cyanosis, clubbing, or edema. NEUROLOGIC: She is alert, oriented. There are no focal or lateralizing signs. SKIN: Warm and dry. DIAGNOSTIC STUDIES/LAB DATA: CBC: WBC 11.2, H and H 11.5/36, MCV 81, PLT 214, 000. ESR 23. Chemistries: Sodium 138, potassium 4, chloride 104, CO2 26, BUN and creatinine 11/0.86, glucose 129, calcium 8.8. Troponin 0.00 at 00:25 and 0.00 at 7:10. In review of her labs done during her ER visit on 07/05/16, she had a normal white count then. Her chemistries at that point with a comprehensive metabolic panel showed a CRP that was mildly elevated at 9.27, amylase and lipase were normal. Lactic acid was normal. LFTs were normal. Urinalysis showed an elevated specific gravity of 1.060. Otherwise normal. TSH is pending. IMPRESSION: The patient with upper abdominal and chest symptoms. This could be related to an ulcer or gastroesophageal reflux disease. CT was unrevealing. I have spoken with Dr. Leo and he agrees to do an EGD on her. I am concerned about the enlarged lymph node. I have discussed this with her. I have discussed it also with Dr. Delgado of Radiology. Near-syncope could be a vagovagal event related to pain. PLAN: I will admit her to the telemetry unit. The plan is see how the rest of the workup goes and consider a biopsy. Dr. Delgado will talk to Interventional Radiology to see whether it could be approached by them. Otherwise, she might need a transbronchial biopsy or a mediastinoscopy. I can also run this by the oncologist. I do want to rule out coronary disease and so we will set her up for a nuclear stress test today. I have informed the tax record clerk about this. She is a full code. I will not put her on heparin for DVT prophylaxis as she will be ambulatory and will be undergoing procedures and do not want to invoke a risk of bleeding at this point. [id number]/CPS #: [id number] MTDD
[2016-07-09 12:10] LABS: Vitamin B12 908 pg/mL (180-914)
--- NOTE | 2016-07-09 13:06 | RAD ---
Indication: Abdominal pain. Real-time sonography of the right upper quadrant was performed. The liver is lobulated in contour. There are no focal lesions or intrahepatic duct dilatation noted. Common duct measures 5 mm. The gallbladder demonstrates gallbladder polyp in the nondependent portion of the gallbladder. No pericholecystic fluid or wall thickening is identified. The right kidney measures 10.2 x 4.4 x 5.4 cm with no hydronephrosis. The pancreas head, neck and proximal body demonstrates no mass or pancreatic duct dilatation. Aorta and inferior vena cava are unremarkable. IMPRESSION: Probable gallbladder polyp without evidence of pericholecystic fluid or wall thickening.
[2016-07-09] MEDS: NS 0.9% 1000 ML* 1,000 ML IV SCH (14:41)
--- NOTE | 2016-07-09 15:05 | RAD ---
HISTORY: Chest pain, dizziness COMPARISONS: December 06, 2013 TECHNIQUE: A 1 day stress/rest myocardial perfusion study was performed, with exercise stress. The exercise portion was performed using the Camron protocol, for a total METs of 7. The stress portion was monitored by Dr. Toro. Gated SPECT imaging was performed, with CT-based attenuation correction DOSE: Stress: Technetium 99m tetrofosmin, 26.2 millicuries, injected at 1:52 PM on July 09, 2016 Rest: Technetium 99m tetrofosmin, 10.32 millicuries, injected at 10:45 AM on July 09, 2016 Pharmacologic agent: None FINDINGS: CARDIAC MONITORING: No definitive EKG changes of ischemia with exercise EF: 78 % TID: 1.15 MOTION: Normal motion, with normal wall thickening. PERFUSION: There are no fixed or reversible perfusion defects. OTHER: None IMPRESSION: NO FIXED OR REVERSIBLE PERFUSION DEFECTS ASSESSMENT: LOW RISK. Based on imaging criteria from ACC/AHA 2002. Guideline Update for the Management of Patient's with Chronic Stable Angina, table 23. Noninvasive Risk Stratification.
[2016-07-09] MEDS: Pregabalin CAP(*) 50 MG PO SCH ×2 (16:48→21:39)
[2016-07-09] MEDS ORDERED: Midazolam* 1 MG/ML 10 ML VIAL (10 MG) ONE (18:18)
[2016-07-09] MEDS ORDERED: Meperidine SYRINGE* 50 MG/ML ONE (18:18)
[2016-07-09] MEDS ORDERED: Calcium Carbonate CHEW TAB* 500 MG (TUMS) PO PRN (23:52)
[2016-07-10] MEDS ORDERED: Levothyroxine TAB* 100 MCG TAB PO SCH (06:00)
[2016-07-10 06:37] LABS: Hematocrit 35 % (35-47); Hemoglobin 11.3 g/dl (12.0-16.0); Mean Corpuscular HGB Conc 32 g/dl (31-36); Mean Corpuscular Hemoglobin 27 pg (27-31); Mean Corpuscular Volume 83 fL (80-97); Mean Platelet Volume 9 um3 (7.4-10.4); Red Blood Count 4.27 10^6/ul (4.0-5.4); Red Cell Distribution Width 17 % (10.5-15); White Blood Count 7.4 10^3/ul (3.5-10.8)
[2016-07-10] MEDS: NS 0.9% 1000 ML* 1,000 ML IV SCH (06:43)
[2016-07-10 07:24] LABS: Urine Bacteria Absent (Absent); Urine Bilirubin Negative (Negative); Urine Glucose Negative (Negative); Urine Nitrite Negative (Negative)
[2016-07-10] MEDS ORDERED: Omeprazole CAP* 20 MG PO SCH (07:30)
[2016-07-10] MEDS: BuPROPion XL* 150 MG TAB.XL PO SCH ×2 (07:33→09:19)
[2016-07-10] MEDS: DULoxetine DR CAP* 30 MG CAP.DR PO SCH ×2 (07:33→09:18)
[2016-07-10] MEDS: Pregabalin CAP(*) 50 MG PO SCH (07:58)
[2016-07-10 08:09] LABS: Anion Gap 7 mmol/L (2-11); CO2 Carbon Dioxide 22 mmol/L (22-32); Chloride 107 mmol/L (101-111); Glucose 88 mg/dL (70-100); Potassium 5.1 mmol/L (3.5-5.0); Sodium 136 mmol/L (133-145)
[2016-07-10 08:10] LABS: ALT 15 U/L (7-52); AST 23 U/L (13-39); Albumin 3.1 g/dL (3.2-5.2); Alkaline Phosphatase 69 U/L (34-104); BUN/Creatinine Ratio 17.5 (8-20); Blood Urea Nitrogen 11 mg/dL (6-24); C Reactive Protein 13.34 mg/L (< 5.00); Calcium 8.4 mg/dL (8.6-10.3); EGFR Non-African American 96.4 (>60); Globulin 2.5 g/dL (2-4); Total Protein 5.6 g/dL (6.4-8.9)
--- NOTE | 2016-07-10 08:26 | PRO ---
DATE OF PROCEDURE: 07/09/16 -ROOM #[id number] PROCEDURE: Gastroscopy. MEDICINE: Versed 10 mg IV, Demerol 75 mg IV. NARRATIVE: This is a 61-year-old woman who has been experiencing back pain and upper abdominal pain. She has had a workup which included a CT scan of the abdomen and chest, which demonstrated an enlarged lymph node in the paratracheal space, a gallbladder ultrasound which showed a gallbladder polyp and a negative cardiac evaluation. She describes the pain is pretty intense. She felt syncopal at one point. It is not related to meals. She has had no nausea or vomiting. For this reason, upper endoscopy is being carried out. DESCRIPTION OF PROCEDURE: After the procedure was discussed with the patient, risks and benefits were outlined. Written consent was obtained. The patient was placed in the left lateral decubitus position and conscious sedation was administered. A video diagnostic gastroscope was inserted orally and passed very carefully into the esophagus. The esophagus, stomach, and duodenum to the second to third portion were well visualized. The patient tolerated the procedure well and there were no immediate complications. FINDINGS: The esophagus was normal. There was no evidence of an erosive change or Knox's esophagus. The stomach was entered. There was a relatively large hiatal hernia seen but the gastric mucosa was otherwise unremarkable without any inflammatory change or ulceration. The pylorus was normal and patent. The duodenal bulb was normal and the second to third portion of the duodenum was normal with a normal folding pattern. CONCLUSION: Hiatal hernia, otherwise normal gastroscopy. RECOMMENDATION: I believe the primary focus should be on biopsying the lymph node as that may elucidate the cause of her symptoms. Although she does have a small gallbladder polyp, her symptoms are atypical for biliary colic. If, however, gallbladder polyp is greater than a centimeter in size, then cholecystectomy would be indicated. CC: Dr. Haile* [id number]/[facility] #: [id number] [facility]i
[2016-07-10] MEDS ORDERED: Tramadol ER(NF) 100 MG TAB.ER PO SCH (09:00)
[2016-07-10 10:42] LABS: TSH (Thyroid Stimulating Horm) 0.1 mcIU/mL (0.34-5.60)
[2016-07-10 10:46] LABS: Free T3 3.5 pg/mL (2.5-3.9)
[2016-07-10 10:48] LABS: Free T4 0.97 ng/dL (0.61-1.12)
[2016-07-10 11:34] VITALS: BP 139/62
--- NOTE | 2016-07-10 15:02 | ED ---
Tray Giles Alok, scribed for Aristeo Vance MD on 07/09/16 at 0406 . Progress - Progress Note Progress Note: GIVEN RISK FACTORS, REQUESTED DR. HOPKINS CONSIDER CARDIAC WORKUP FOR THIS PATIENT, RO MN - EKG/XRAY/CT CT: Brain CT - IMPRESSION: NO MASS EFFECT OR INTRACRANIAL HEMORRHAGE. Course/Dx - Diagnoses Provider Diagnoses: Lightheaded, DIZZINESS,CHEST PAIN - Provider Notifications Discussed Care Of Patient With: signed out to Dr. Vance 0230. Dr Hopkins ( Internal Medicine) @ 0640 - Will come in and see pt. Requesting pt admit. The documentation as recorded by the michaelibTray mclain Alok accurately reflects the service I personally performed and the decisions made by , Aristeo Vance MD.
--- NOTE | 2016-07-10 19:56 | DS ---
CC: Monroe Haile MD DISCHARGE SUMMARY: DATE OF ADMISSION: 07/09/16 DATE OF DISCHARGE: 07/10/16 DISCHARGE DIAGNOSES: 1. Chest and abdominal pain, etiology uncertain. 2. Paratracheal lymphadenopathy, possibly cause of chest and abdominal pain. 3. Hypothyroidism with replacement, over replaced at this point. 4. Hyperhidrosis, possibly related to hypothyroidism. 5. History of anxiety and depression. 6. Fibromyalgia. 7. Gastroesophageal reflux disease. 8. History of vitamin D deficiency. 9. Obesity. 10. Osteoarthritis. 11. Tobacco abuse. 12. History of SULFA allergy. 13. Near syncope, possible vasovagal reaction. 14. Insomnia, related possibly to thyroid. 15. Low ferritin,possibly related to PPI use. HISTORY: Amparo Anderson is a 61-year-old woman admitted with chest and abdominal pain and near syncope. Please see dictated admission note for details of the present illness, past medical history, family history, social and personal history, review of systems, and physical examination. LABORATORY DATA: CBC: WBC 11.2, H and H 11.5/36, MCV 81, PLT 214,000. Sed rate 23. CBC on 07/10/16: WBC 7.4, H and H 11.3/35. Chemistries: Sodium 138 , potassium 4.0, chloride 104, CO2 26, BUN and creatinine 11/0.86, glucose 129. Rest of the comprehensive metabolic panel was within normal limits. TSH was 0.18 on 07/09/16 and 0.10 on 07/10/16. Free T3 and free T4 were within normal limits on 07/10/16, after levothyroxine held 0.97/3.50. B12 was normal at 908, ferritin was low at less than 10 (? related to PPI). CRP was mildly elevated 14.02 on 07/09/16 and 13.34 on 07/10/16. Troponins were 0, 6 hours apart. Urinalysis yellow clear, specific gravity of 1.021, pH 5, dipsticks positive for trace esterase, epithelial cells were present, hyaline casts were present. IMAGING DATA: Nuclear stress test showed no fixed or reversible perfusion defects. Brain CT showed no evidence of gross acute infarct, mass effect or hemorrhage, findings most consistent with mild chronic small vessel ischemic changes. Gallbladder ultrasound showed a 5-mm polyp, otherwise unremarkable. EKG on 07/09/16 showed borderline T-wave abnormalities. Repeat EKG showed borderline elevated KS interval. No acute changes. Stress test done on showed poor exercise tolerance with abnormal blood pressure response to exercise, intermediate risk Beal score solely based on poor exercise time. There were no EKG changes. She went 4:04 minutes achieving 7 METS. Chest discomfort did not change with exercise. Peak heart rate was 87% age predicted. No EKG changes of ischemia. There were frequent PACs with short burst of SVT noted. HOSPITAL COURSE: The patient was admitted to the telemetry unit. She was monitored and no significant arrhythmias were noted. It was felt that her near syncope was likely vasovagal, related to pain and lack of sleep. She had an EGD , which was unremarkable. Cardiac workup was unremarkable. Gallbladder ultrasound did not reveal the cause of her pain. Her pain actually improved. She was feeling better, possibly because she slept in the hospital. Her usual medications were continued. I saw her on 07/10/16. She had been able to eat. She discussed the stress of her job and recent 1-year anniversary of her father' s for which she had gone to [place] to be with her sister on her birthday. She got somewhat tearful talking about that. She rated pain as 2/ 10. Her exam showed just mild epigastric tenderness at this point. It was felt that her symptoms might relate to her lymphadenopathy. She was told that the cause of this is unclear, needs a biopsy. This will need to be done by Pulmonary. Pulmonary was not available and so this will be done as an outpatient. I discussed this with Radiology and they did not feel that Interventional Radiology could accomplish a biopsy in this location, it should be done by Pulmonary. During her hospitalization, it was also noted that her TSH was suppressed. For this reason, her Synthroid is going to be held until she sees Dr. Haile in the next couple of days. This could have contributed to her insomnia. She was told to be off work for the next week so that she could get the procdure needed to make a diagnosis and get her thyroid adjusted. She had been given Percocet for pain previously and has at home but did not want to take. DISCHARGE MEDICATIONS: At the time of discharge her medications are as follows: 1. Wellbutrin XL 150 mg 2 a day. 2. Alprazolam 0.5 mg as needed for anxiety. 3. Cymbalta 60 mg once a day. 4. Lyrica 50 mg 3 times a day. 5. Prilosec. 6. Omeprazole 40 mg once a day. 7. Tramadol extended release 100 mg once a day. She is not to take levothyroxine for now. She is to see Dr. Haile in the next 2 to 3 days at which time her biopsy will be arranged. [id number]/[facility] #: [id number] [facility]ITAL[facility]i
== END 2016-07-10 13:50 | disposition home or self-care (01) ==
LOC: ED 01:01 → MEDTELE 09:30
PROVIDERS: ADMIT Internal Medicine Geriatric Medicine; ATTEND Internal Medicine Geriatric Medicine
PROC: 0DJ08ZZ Inspection of Upper Intestinal Tract, Via Natural or Artificial Opening Endoscopic (ICD-10-PCS; principal; 2016-07-09)
DX: R07.9 Chest pain, unspecified (principal); R10.9 Unspecified abdominal pain; R59.1 Generalized enlarged lymph nodes; E03.9 Hypothyroidism, unspecified; R61 Generalized hyperhidrosis; F41.9 Anxiety disorder, unspecified; F32.9 Major depressive disorder, single episode, unspecified; M79.7 Fibromyalgia; K44.9 Diaphragmatic hernia without obstruction or gangrene; K21.9 Gastro-esophageal reflux disease without esophagitis; E66.9 Obesity, unspecified; R55 Syncope and collapse; F17.210 Nicotine dependence, cigarettes, uncomplicated; Z88.2 Allergy status to sulfonamides; G47.00 Insomnia, unspecified; Z79.899 Other long term (current) drug therapy; R94.31 Abnormal electrocardiogram [ECG] [EKG]; R79.89 Other specified abnormal findings of blood chemistry
CPT/HCPCS: 36415; 70450; 76705; 78452; 80053; 81003; 81015; 82607; 82728; 84439; 84443; 84481; 84484; 85025; 85027; 85652; 86140; 87086; 93005; 93017; 96360; 96361; 99283; 99406; A9270-GY; A9502; G0378; J2250

== ENCOUNTER → 2016-07-21 11:48 | Day surgery (SDC) | payer BC ==
[~2016-07-21 11:48] MED LIST: Acetaminophen TAB* 325 MG PO PRN; Buffered Lidocaine 1% SYRIN* 3 ML/SYR SYRINGE INTRADERM ONE; Dexamethasone IV* 4 MG/ML 1 ML (4 MG) ONE; DiMENhydriNATE IV* 50 MG/ML VIAL ONE; Famotidine IV* 10 MG/ML 2 ML (20 mg) IV ONE; Famotidine IV* 10 MG/ML 2 ML (20 mg) ONE; Lidocaine 2% PF* 5 ML VIAL ONE; Midazolam* 1 MG/ML 5 ML VIAL (5 MG) ONE; Ondansetron INJ* 2 MG/ML VIAL ONE; Propofol* 10 MG/ML 20 ML BTL IV PUSH ONE; Succinylcholine* 20 MG/ML 10 ML VIAL ONE; ceFAZolin 2 GM PREMIX(*) 0 GM/0 ML BAG IVPB ONE; fentaNYL* 50 MCG/ML 2 ML VIAL (100 MCG VIAL) ONE; oxyCODONE/Acetamin 5/325 MG* TAB PO PRN
[2016-07-21 15:16] VITALS: BP 127/66
--- NOTE | 2016-07-22 13:10 | PRO ---
BRONCHOSCOPY REPORT: DATE OF PROCEDURE: 07/21/16 PROCEDURE PERFORMED: Bronchoscopy with endobronchial ultrasound-guided fine- needle aspiration from station R4 lymph node and R10 lymph node. PREPROCEDURAL DIAGNOSIS: Large paratracheal node necrotic-appearing on CT scan. ANESTHESIA: General anesthesia. ANESTHESIOLOGIST: Dr. Lucero. Refer to anesthesiologist's note for further details. DESCRIPTION OF PROCEDURE: Informed consent was obtained from the patient prior to the procedure after all the risks and benefits were thoroughly explained. The patient was recently admitted for abdominal pain, was noted to have enlarged paratracheal lymph node and right hilar lymph node on CT scan. The patient is current smoker and she was scheduled for the procedure for evaluation of adenopathy. The patient was intubated with size 8.0 endotracheal tube prior to the procedure. Flexible Olympus bronchoscope was inserted through the ET tube. ET tube positioning was confirmed to be 4 cm above the level of jovani. Bronchoscope was then advanced into right bronchial tree, which was inspected. No endobronchial lesions were noted. 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 Minimal thick secretions were noted and were suctioned out. Bronchoscope was then advanced into the left bronchial tree, which was then inspected. No endobronchial lesions were again noted. The patient noted to have lot of secretions, which were suctioned out. The patient also had bronchomalacia on the left side. Bronchoscope was then withdrawn and EBUS bronchoscope was inserted through ET tube. R4 lymph node was significantly enlarged and was accessed with 4 passes. Rapid on-site evaluation revealed malignant cells. Specimen was placed in CytoLyt and RPMI. Bronchoscope was then advanced into R10 area, which was then accessed with 4 passes. Adequate lymphatic tissue was seen and malignant cells were noted. Specimen was placed in CytoLyt. The patient was extubated and seen in recovery area in optimal condition. The patient tolerated the procedure well. [id number]/[facility] #: [id number] [facility]
== END | disposition home or self-care (01) ==
LOC: OR 11:48
PROVIDERS: ATTEND Internal Medicine
DX: C34.91 Malignant neoplasm of unspecified part of right bronchus or lung (principal); F17.210 Nicotine dependence, cigarettes, uncomplicated
CPT/HCPCS: 88172; 88173; 88305; 88341; 88342; J0330; J0690; J1100; J1240; J2250; J2405; J2704; J3010

== ENCOUNTER 2016-08-09 06:21 | Day surgery (SDC) | payer BC ==
[~2016-08-09 06:21] MED LIST changes: -Acetaminophen TAB* 325 MG PO PRN; -Dexamethasone IV* 4 MG/ML 1 ML (4 MG) ONE; -DiMENhydriNATE IV* 50 MG/ML VIAL ONE; -Famotidine IV* 10 MG/ML 2 ML (20 mg) IV ONE; -Famotidine IV* 10 MG/ML 2 ML (20 mg) ONE; -Lidocaine 2% PF* 5 ML VIAL ONE; -Midazolam* 1 MG/ML 5 ML VIAL (5 MG) ONE; -Ondansetron INJ* 2 MG/ML VIAL ONE; -Propofol* 10 MG/ML 20 ML BTL IV PUSH ONE; -Succinylcholine* 20 MG/ML 10 ML VIAL ONE; -ceFAZolin 2 GM PREMIX(*) 0 GM/0 ML BAG IVPB ONE; -fentaNYL* 50 MCG/ML 2 ML VIAL (100 MCG VIAL) ONE; -oxyCODONE/Acetamin 5/325 MG* TAB PO PRN
[2016-08-09] MEDS ORDERED: ceFAZolin 2 GM PREMIX(*) 2 GM/50 ML BAG IVPB ONE (06:52)
[2016-08-09] MEDS ORDERED: Lidocaine 1% INJ* 10 MG/ML 30 ML SDV ONE (07:17)
[2016-08-09] MEDS ORDERED: Midazolam* 1 MG/ML 5 ML VIAL (5 MG) ONE (07:43)
[2016-08-09] MEDS ORDERED: fentaNYL* 50 MCG/ML 2 ML VIAL (100 MCG VIAL) ONE (07:43)
[2016-08-09] MEDS ORDERED: Propofol* 10 MG/ML 20 ML BTL IV PUSH ONE (08:26)
--- NOTE | 2016-08-09 09:13 | SURGPN ---
Brief Operative Note - Surgery Procedures: Procedures OPERATIVE REPORT PRE-OP: Lung Cancer POST-OP: Same PROCEDURE: powerPort Insertion Left chest SURGEON: MD Jacque ANESTHESIA:Local with MAC Dr. Culp ASST: none IVF:min EBL:min SPECIMEN:none DRAIN: none WOUND CLASS:One COMPLICATIONS: none TO PACU
[2016-08-09] MEDS ORDERED: oxyCODONE/Acetamin 5/325 MG* TAB PO PRN (09:23)
[2016-08-09] MEDS ORDERED: oxyCODONE/Acetamin 5/325 MG* TAB ONE (09:28)
--- NOTE | 2016-08-09 09:46 | RAD ---
INDICATION: PowerPort insertion COMPARISON: Chest x-ray May 05, 2016 TECHNIQUE: An AP portable view obtained at 0922 hours is submitted. FINDINGS: Bones/Soft Tissues: There are no acute bony findings. There is a left-sided PowerPort catheter terminating in the superior vena cava. Cardiomediastinal: The cardiomediastinal silhouette is normal. Lungs: There are no infiltrates. There is no pneumothorax. Pleura: There are no pleural effusions. Other: None IMPRESSION: POWERPORT CATHETER IN EXPECTED RADIOGRAPHIC POSITION. LUNGS CLEAR. NO PNEUMOTHORAX.
--- NOTE | 2016-08-09 09:59 | RAD ---
INDICATION: PowerPort insertion COMPARISON: None FINDINGS: 67.9 seconds of fluoroscopy were provided for the surgical department. Fluoroscopic spot imaging of the chest were obtained for operative control and show placement of a left-sided PowerPort catheter. The catheter demonstrates a normal course and terminates in the superior vena cava. CPT II Codes: 6045F (fluoro time doc)
[2016-08-09 10:13] VITALS: BP 141/86
--- NOTE | 2016-08-10 06:58 | OP ---
DATE OF OPERATION: 08/09/16 - [facility] DATE OF : 57 SURGEON: Chavo Santillan MD ANESTHESIOLOGIST: Kassandra Culp MD ANESTHESIA: Local with monitored anesthesia care. PRE-OP DIAGNOSIS: Right lung cancer. POST-OP DIAGNOSIS: Right lung cancer. OPERATIVE PROCEDURE: Insertion of an 8-Bhutanese left chest wall percutaneously placed PowerPort. ESTIMATED BLOOD LOSS: Minimal. WOUND CLASSIFICATION: One. COMPLICATIONS: None. DRAINS: None. SPECIMENS: None. DESCRIPTION OF PROCEDURE: Written and informed consent was obtained and the left chest was marked with indelible ink and preoperative antibiotics were administered. The patient was taken to the operating room and placed in a supine position. The sequential compression devices were placed in the lower extremities. Anesthesia was administered in the left and right chest and neck were prepped and draped in the usual sterile fashion. Time-out verification was completed. The patient was placed in Trendelenburg position and 1% lidocaine was infiltrated at the left infra midclavicular area and an 18-gauge Cook needle was then used to pass over to the clavicle and the subclavian vein was punctured on the first pass with good blood return. The guidewire was inserted without difficulty and confirmed to be in the superior vena cava by fluoroscopy. Next, additional lidocaine was infiltrated below the puncture site. A transverse incision was made several fingerbreadths below this and a subcutaneous pocket was made inferior large enough to permit the port placement. Next a catheter was tunneled from the puncture site to the pocket site and using the sheath dilator peel-away system, the catheter was inserted into the superior vena cava at the junction of the right atrium and confirmed by fluoroscopy to be in good position. The catheter was cut to the appropriate length and attached to the port, which was placed into the pocket. It flushed well and withdrew blood without difficulty. Then was subsequently flushed with heparin solution. Catheter was secured to the subcutaneous tissue in 2 places with interrupted 3- 0 Prolene suture. Hemostasis was assured. The wound was closed in layers of 3- 0 and 4-0 Polysorb suture and a sterile occlusive dressing was applied. The patient tolerated the procedure well, was taken to the recovery room in stable condition. A postprocedural chest x-ray showed the catheter to be in good position with no evidence of pneumothorax. CC: [facility]; KATHIA; attention to Dr. Hernandez* [id number]/[facility] #: [id number] [facility] SYSTEMJaci
== END 2016-08-09 10:15 | disposition home or self-care (01) ==
LOC: OR 06:21
PROVIDERS: ATTEND Surgery
DX: C34.91 Malignant neoplasm of unspecified part of right bronchus or lung (principal); F17.210 Nicotine dependence, cigarettes, uncomplicated; R59.1 Generalized enlarged lymph nodes; Z79.891 Long term (current) use of opiate analgesic; K21.9 Gastro-esophageal reflux disease without esophagitis; F32.9 Major depressive disorder, single episode, unspecified; E89.0 Postprocedural hypothyroidism
CPT/HCPCS: 71010; 76000; A9270-GY; C1788; J0690; J1642; J2001; J2250; J2704; J3010

== ENCOUNTER 2016-09-17 00:29 | Observation (INO) | payer BC ==
[2016-09-17] MEDS ORDERED: Aspirin Low Dose CHEW TAB* 81 MG PO ONE (00:38)
--- NOTE | 2016-09-17 00:47 | ED ---
HPI Chest Pain - HPI Summary HPI Summary: Patient JAMESON is a 61yo F recently diagnosed with lung CA presenting with chest pain since 1 hour ago. The pain awoke her from sleep, had been constant for 30 minutes, began in the midsternal chest and radiated through to the back and right shoulder. Pain was constant and crushing. She now notes to only right shoulder pain, but denies chest pain. She denies radiation to the jaw but is having jaw pain d/t a tooth which needs to be pulled. She is currently on Amoxicillin for this issue. Last WBC was 1.2 and she has been pancytopenic since dx. Denies personal or family history of CAD. She denies diaphoresis, weakness or SOB. She received 325mg aspirin in ambulance en route. She notes to extreme recent stress today during her oncology visit and is tearful on examination. - History of Current Complaint Chief Complaint: EDChestPainROMI Time Seen by Provider: 09/17/16 00:38 Hx Obtained From: Patient Onset/Duration: Started Minutes Ago Time of Onset: 00:05 Timing: Constant, Lasting Minutes Initial Severity: Moderate Current Severity: Moderate Pain Intensity: 5 Pain Scale Used: 0-10 Numeric Chest Pain Location: Discrete at:, Mid Sternal Chest Pain Radiates: Yes Chest Pain Radiates To:: Back, Shoulder - right Character: Crushing Aggravating Factor(s): Nothing Alleviating Factor(s): Nothing Associated Signs and Symptoms: Positive: Anxiety, Recent Stress - Risk Factors Pulmonary Embolism Risk Factors: Malignancy TAD Risk Factors: Smoking - Allergy/Home Medications Allergies/Adverse Reactions: Allergies Allergy/AdvReac Type Severity Reaction Status Date / Time Sulfa Drugs Allergy Intermediate Hives Verified 09/17/16 00:45 PMH/Surg Hx/FS Hx/Imm Hx Previously Healthy: Yes Endocrine/Hematology History: Reports: Hx Thyroid Disease - HYPOTHYROID Denies: Hx Diabetes, Hx Anemia Cardiovascular History: Reports: Hx Valvular Heart Disease - MV prolapse Denies: Hx Congestive Heart Failure, Hx Hypertension, Hx Pacemaker/ICD GI History: Reports: Hx Gastroesophageal Reflux Disease, Hx Hiatal Hernia, Other GI Disorders - GERD, ? IBS Denies: Hx Jaundice History: Denies: Hx Dialysis, Hx Renal Disease Musculoskeletal History: Reports: Hx Arthritis - osteoarthritis in lower back, Hx Orthopedic Injury Sensory History: Reports: Hx Contacts or Glasses Denies: Hx Hearing Aid Opthamlomology History: Reports: Hx Contacts or Glasses Neurological History: Reports: Hx Nerve Disease - fibromyalgia, Other Neuro Impairments/Disorders - L5-S1 PAIN INJECTION Psychiatric History: Reports: Hx Anxiety, Hx Depression Denies: Hx Panic Disorder - Cancer History Cancer Type, Location and Year: LUNG CA - NEWLY DX Hx Chemotherapy: No Hx Radiation Therapy: No - Surgical History Surgery Procedure, Year, and Place: SEVERAL FOOT SURGERIES-([facility]) [facility]. MENISCUS REPAIR- Lt [facility] -. Partial thyroidectomy (cyst). Rt HAND- REMOVED A PIECE OF BONE Hx Anesthesia Reactions: No - Immunization History Date of Tetanus Vaccine: unk Date of Influenza Vaccine: unk Hx Pertussis Vaccination: No Immunizations Up to Date: Unable to Obtain/Confirm Infectious Disease History: No Infectious Disease History: Denies: Traveled Outside the [place] in Last 30 Days - Family History Known Family History: Positive: Renal Disease, Other - arthritis, CA - Social History Occupation: Unemployed Lives: With Family Alcohol Use: Occasionally Alcohol Amount: 2-3 beers a couple times per week- pt seems evasive Hx Substance Use: No Substance Use Type: Reports: None Substance Use Comment - Amount & Last Used: Tramadol ER Hx Tobacco Use: Yes Smoking Status (MU): Former Smoker Type: Cigarettes Amount Used/How Often: 1 ppd Have You Smoked in the Last Year: Yes Review of Systems Constitutional: Negative Eyes: Negative Positive: Chest Pain Respiratory: Negative Gastrointestinal: Negative Positive: no symptoms reported, see HPI Musculoskeletal: Negative Skin: Negative Neurological: Negative Positive: Anxious All Other Systems Reviewed And Are Negative: Yes Physical Exam Triage Information Reviewed: Yes Vital Signs On Initial Exam: Initial Vitals Temp Pulse Resp BP Pulse Ox 97.8 F 100 14 130/41 95 09/17/16 00:32 09/17/16 00:32 09/17/16 00:32 09/17/16 00:32 09/17/16 00:32 Vital Signs Reviewed: Yes Appearance: Positive: Ill-Appearing, Cachectic Skin: Positive: Warm, Dry, Pale Head/Face: Positive: Normal Head/Face Inspection Eyes: Positive: EOMI, FAROOQ, Conjunctiva Clear Neck: Positive: Supple, Nontender, No Lymphadenopathy Respiratory/Lung Sounds: Positive: Clear to Auscultation, Breath Sounds Present Cardiovascular: Positive: RRR, Pulses are Symmetrical in both Upper and Lower Extremities, Tachycardia Abdomen Description: Positive: Nontender Musculoskeletal: Positive: Normal, Strength/ROM Intact Neurological: Positive: Sensory/Motor Intact, Alert, Oriented to Person Place, Time, Speech Normal Psychiatric: Positive: Normal, Anxious, Depressed AVPU Assessment: Alert - [place] Coma Scale Best Eye Response: 4 - Spontaneous Best Motor Response: 6 - Obeys Commands Best Verbal Response: 5 - Oriented Coma Scale Total: 15 Diagnostics - Vital Signs Vital Signs Temp Pulse Resp BP Pulse Ox 09/17/16 00:32 97.8 F 100 14 130/41 95 - Laboratory Lab Statement: Any lab studies that have been ordered have been reviewed, and results considered in the medical decision making process. Chest Pain Course/Dx - Course Course Of Treatment: Patient presents to ED with chest pain. Recent dx of lung CA with appt at oncology today. Pain is crushing, radiates directly through to the back and to the right shoulder. Spontaneously resolved in 30 minutes, now only c/o right shoulder pain. No family or personal history of CAD. WBC 1.2 today. EKG shows sinus tachycardia with atrial premature complexes and prolonged W[place] interval. Patient given aspirin en route by EMS. Trop is 0.01. Will await other trops and admit. Called Dr. Bolton at 1:50pm who accepted patient. - Chest Pain Differential Diagnosis/HQI/PQRI: Acute IL, ACS, Angina, Chest Wall - Diagnoses Provider Diagnoses: Chest pain Discharge - Discharge Plan Condition: Stable Disposition: ADMITTED TO [facility]
[2016-09-17 01:28] LABS: Magnesium 1.7 mg/dL (1.9-2.7)
[2016-09-17 01:32] LABS: Troponin I 0.01 ng/mL (<0.04)
[2016-09-17] MEDS ORDERED: ALPRAZolam TAB* 0.5 MG PO PRN (03:13)
[2016-09-17] MEDS ORDERED: oxyCODONE/Acetamin 5/325 MG* TAB PO PRN (03:13)
--- NOTE | 2016-09-17 05:52 | HP ---
HISTORY AND PHYSICAL: DATE OF ADMISSION: 09/17/16 PRIMARY CARE PHYSICIAN: Monroe Haile MD CHIEF COMPLAINT: Chest pain. HISTORY OF PRESENT ILLNESS: The patient is a 61-year-old woman recently diagnosed with small cell carcinoma of the lung, who presents to [facility] with a chief complaint of chest pain that woke her from sleep at 11:40 p.m. She states it is in the middle of her chest, went her to back and right shoulder. At its worst, it was 7/10 in severity. She is not sure if it was worse with deep breath and a cough. She had some shortness of breath with it, but no nausea or vomiting. No sweating. No clamminess. She said the pain eventually went away on its own. She said it is similar to the pain she has had in the past. In fact, it is very similar to the pain she had, which originally brought her to the hospital when she was diagnosed with the small cell cancer. The patient currently feels well with no complaints. PAST MEDICAL HISTORY: Significant for small cell carcinoma, recently diagnosed , status post 2 cycles of chemo and radiation therapy; hypothyroidism, status post partial thyroidectomy; fibromyalgia; depression; hyperhidrosis; tobacco abuse; history of vitamin D deficiency, resolved; GERD; osteoarthritis; obesity ; and anxiety. PAST SURGICAL HISTORY: Recent port placement, hemithyroidectomy, foot surgery for bunions and hammertoes, surgery on the right trapezium and proximal third of trapezoid with suture suspension arthroplasty, left knee arthroscopy, T and A at age 19. MEDICATIONS: Current medications are as follows: 1. Magnesium 200 mg 4 times a day. 2. Vitamin D 4000 units daily. 3. Wellbutrin XR 150 mg daily. 4. Xanax 0.5 mg 3 times a day as needed. 5. Percocet 5/325 every 6 hours as needed. 6. Tramadol 100 mg daily. 7. Pregabalin 50 mg 3 times a day. 8. Omeprazole 40 mg twice a day. 9. Multivitamin 1 tablet daily. 10. Levothyroxine 200 mcg daily. 11. Duloxetine 60 mg daily. ALLERGIES: She has an allergy/adverse reaction to SULFA, which causes hives. FAMILY HISTORY: Father at 83, dementia, rheumatoid arthritis, and depression. Mother with kidney failure, type 2 diabetes requiring dialysis, and hypertension. Three siblings, one with lupus. She has 2 children, alive and well. SOCIAL HISTORY: Lives alone. Two adult children. 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 REVIEW OF SYSTEMS: A 14-point review of systems was completed with the patient. All pertinent positives and negatives are in the history of present illness, otherwise it is negative. PHYSICAL EXAMINATION GENERAL: A very pleasant woman, lying in bed, in no acute distress. VITAL SIGNS: Temperature 97.8 degrees, heart rate 97 beats per minute, respiratory rate 14 breaths per minute, pulse ox 98% on room air, blood pressure 121/61. HEENT: Normocephalic, atraumatic. Pupils equal, round, and reactive to light. Moist mucous membranes. NECK: Supple. No JVD, bruits, palpable thyroid, or lymphadenopathy. CHEST: Clear to auscultation and percussion bilaterally. CARDIOVASCULAR: S1, S2 appreciated. ABDOMEN: Positive bowel sounds in all 4 quadrants. Soft, nontender, nondistended. No hepatosplenomegaly. EXTREMITIES: No cyanosis, clubbing, +2 peripheral pulses bilaterally. NEUROLOGIC: Alert and oriented x3. Moves all extremities. SKIN: No rashes. LABORATORY DATA/DIAGNOSTIC STUDIES: Magnesium 1.7. Troponin 0.01. BNP 35. Sodium 135, potassium 4.5, chloride 99, CO2 28, BUN 15, creatinine 1.42, glucose 123. White count 1.2, hemoglobin 9.5, hematocrit 29, and platelets 92. EKG shows normal sinus rhythm at 99 beats per minute, normal axis, no acute ST- T wave changes. Chest x-ray shows no acute infiltrates. ASSESSMENT AND PLAN: 1. Chest pain. Because it is so similar to her prior episodes of chest pain and is fairly atypical, I do not think this is cardiac in nature. We will cycle her troponins and rule her out for an IN. I do not think she needs even a stress test, but I think certainly a transthoracic echo would be appropriate, which I will order for the next morning. If this is unremarkable, I think she should go home as early as later in the day. I will obviously place her on telemetry as well. I also think that PE is unlikely in this patient at this time as her pain resolved on its own and she is not hypoxic and quite stable at this time. 2. Small cell lung cancer. Management as per Oncology. 3. FEN, regular diet. 4. DVT prophylaxis, heparin subcu. 5. The patient is a full code. TIME SPENT: Over 75 minutes were spent on this H and P, more than 40 minutes were spent in direct [id number] contact with the patient in evaluation, physical exam, counseling, and coordination of care. CC: Monreo Haile MD; Elvie Hernandez MD * [id number]/CPS #: [id number] MTDD
[2016-09-17] MEDS ORDERED: Heparin VIAL(*) 5000 UNITS/ML VIAL (FIVE THOUSAND) SUBCUT SCH (06:00)
[2016-09-17] MEDS ORDERED: Levothyroxine TAB* 100 MCG TAB PO SCH (06:00)
--- NOTE | 2016-09-17 07:54 | RAD ---
INDICATION: Chest pain. COMPARISON: Comparison is made with a prior chest x-ray study from August 30, 2016. TECHNIQUE: A portable view of the chest was obtained. FINDINGS: There is a power port central venous catheter present entering on the left side. The catheter tip projects over the right atrium. The heart is within normal limits in size. The lungs appear hyperinflated and clear. No pleural effusion is seen. IMPRESSION: NO EVIDENCE FOR ACUTE FINDING.
[2016-09-17 08:21] VITALS: BP 135/66
--- NOTE | 2016-09-17 08:49 | PN ---
Subjective - Subjective Reason for Note: Discharge Note History: DISCHARGE SUMMARY I obtained her presentation from the patient and also from Dr. David Bolton's history and physical. She was woken from sleep by 7/10 chest pain that was lower sternal, radiated to her back, and right shoulder. There was no associated palpitations, dyspnea, nausea or vomiting. She had no diaphoresis and her pain was not exacerbated by moving her chest wall, breathing or coughing. She ate a pepperoni pizza last night and has GERD. She has no pain this morning. She states the pain was similar to that which led to the diagnosis of her lung cancer. She is currently receiving chemotherapy and is under the care of the oncology team. This morning she has no chest pain - it lasted 1 hour. She is feeling her usual self, no new symptoms Active Problems: Active Problems Atypical chest pain (Acute) R07.89 Small cell carcinoma of right lung (Acute) C34.91 Anxiety disorder (Chronic 12/05/13) F41.9 Depression (Chronic 12/05/13) F32.9 Fibromyalgia (Chronic 12/05/13) M79.7 Gastroesophageal reflux disease (Chronic 12/05/13) K21.9 Obesity (Chronic 12/05/13) E66.9 Tobacco abuse (Chronic 12/05/13) Z72.0 Current Medications: Current Medications Alprazolam (Xanax Tab*) 0.5 mg PO TID PRN PRN Reason: ANXIETY Last Admin: 09/17/16 05:11 Dose: 0.5 mg Bupropion HCl (Wellbutrin Sr Tab*) 150 mg PO DAILY [facility] Last Admin: 09/17/16 07:23 Dose: 150 mg Duloxetine HCl (Cymbalta Cap*) 60 mg PO DAILY [facility] Last Admin: 09/17/16 07:49 Dose: 60 mg Heparin Sodium (Porcine) (Heparin Vial(*)) 5,000 units SUBCUT Q8HR [facility] Last Admin: 09/17/16 05:11 Dose: 5,000 units Levothyroxine Sodium (Synthroid Tab*) 200 mcg PO 0600 [facility] Last Admin: 09/17/16 05:11 Dose: 200 mcg Magnesium Oxide (Magox 400 Tab*) 200 mg PO QID [facility] Last Admin: 09/17/16 07:23 Dose: 200 mg Multivitamins/Minerals (Theragran/Minerals Tab*) 1 tab PO DAILY [facility] Last Admin: 09/17/16 07:22 Dose: 1 tab Omeprazole (Prilosec Cap*) 40 mg PO BID [facility] Last Admin: 09/17/16 07:22 Dose: 40 mg Oxycodone/Acetaminophen (Percocet 5/325 Tab*) 1 tab PO Q6H PRN PRN Reason: PAIN Pregabalin (Lyrica Cap(*)) 50 mg PO TID [facility] Last Admin: 09/17/16 07:23 Dose: 50 mg Home Medications: Home Medications Medication Instructions Recorded Confirmed Type Bupropion HCl [Wellbutrin Sr] 150 mg PO DAILY 05/11/13 09/17/16 History DULoxetine CAP* [Cymbalta CAP*] 60 mg PO DAILY 05/11/13 09/17/16 History Levothyroxine TAB* [Synthroid 100 200 mcg PO DAILY 05/11/13 09/17/16 History MCG TAB*] Omeprazole CAP* [Prilosec CAP*] 40 mg PO BID 05/11/13 09/17/16 History Cholecalciferol [Vitamin D] 4,000 unit PO DAILY 06/03/14 09/17/16 History Pregabalin CAP(*) [Lyrica CAP(*)] 50 mg PO TID 09/25/15 09/17/16 History Tramadol ER(NF) [Ultram HCl ER(NF)] 100 mg PO DAILY 09/25/15 09/17/16 History Alprazolam [Xanax] 0.5 mg PO TID PRN 04/28/16 09/17/16 History Multiple Vitamins W/ Minerals 1 tab PO DAILY 08/05/16 09/17/16 History [Multivitamin Women 50+] oxyCODONE/Acetamin 5/325 MG* 1 tab PO Q6H PRN #12 tab MDD 4 08/09/16 09/17/16 Rx [Percocet 5/325 TAB*] Magnesium [Magnacaps] 200 mg PO QID 09/17/16 09/17/16 History Allergies: Allergies Allergy/AdvReac Type Severity Reaction Status Date / Time Sulfa Drugs Allergy Intermediate Hives Verified 09/17/16 02:28 Objective - Vital Signs Vital Signs: Vital Signs 09/17/16 09/17/16 09/17/16 03:14 04:44 05:11 Temperature 97.7 F Pulse Rate 97 93 Respiratory 14 18 18 Rate Blood Pressure 121/61 136/74 (mmHg) O2 Sat by Pulse 98 97 Oximetry 09/17/16 09/17/16 09/17/16 06:41 07:11 07:23 Temperature Pulse Rate Respiratory 18 18 18 Rate Blood Pressure (mmHg) O2 Sat by Pulse Oximetry 09/17/16 08:04 Temperature 98.3 F Pulse Rate 93 Respiratory 22 Rate Blood Pressure 135/66 (mmHg) O2 Sat by Pulse 96 Oximetry - Intake and Output Intake and Output: Intake & Output 09/14/16 09/15/16 09/16/16 09/17/16 11:59 11:59 11:59 11:59 Intake Total 0 Balance 0 Weight 231 lb 3.2 oz Intake: Oral 0 Other: # Bowel Movements 0 # Voids 0 ADLs: Meal Record Start: 09/17/16 04: 44 Freq: DAILY@0900,1400,1800 Status: Active Created 09/17/16 04:44 System (Rec: 09/17/16 04:44 System [id number]) Intake and Output Start: 09/17/16 00: 32 Freq: Status: Active Created 09/17/16 00:32 System (Rec: 09/17/16 00:32 System [id number]) Intake and Output Start: 09/17/16 04: 44 Freq: DAILY@0600,1400,2200 Status: Active Created 09/17/16 04:44 System (Rec: 09/17/16 04:44 System [email or web address]) Document 09/17/16 05:45 [id number] (Rec: 09/17/16 05:46 [id number]) - Physical Exam General: No Cyanosis, No Anemia, No Jaundice, No Clubbing Lungs and Chest: Yes: Chest Expansion Full, Chest Expansion Symetrica, Percussion Note Resonant, Vessicular Breath Sounds. No: Crackles, Wheezes Heart Rate and Rhythm: Regular JVP: Not Elevated Additional Cardiovascular: Yes: Normal Heart Sounds. No: Heart Murmur, Pedal Edema Abdominal Exam: Yes: Soft, Bowel Sounds Present. No: Distention, Abdominal Tenderness Results - Results Lab Results: Laboratory Results - last 24 hr 09/17/16 09/17/16 04:00 06:50 Troponin I 0.00 0.00 Radiology Results: Patient Name: AIDEN WILKINS Medical Record#: [id number] Ordering Physician: Dahiana GARCIA Acct.#: [id number] : 1955 Age: 61 Sex: F Location: [address] [place] [address]/TELEMETRY Exam Date: 09/17/1637 ADM Status: ADM Alison Order Information: CHEST AP PORTABLE Accession Number: [id number] CPT: 67071 INDICATION: Chest pain. COMPARISON: Comparison is made with a prior chest x-ray study from August 30, 2016. TECHNIQUE: A portable view of the chest was obtained. FINDINGS: There is a power port central venous catheter present entering on the left side. The catheter tip projects over the right atrium. The heart is within normal limits in size. The lungs appear hyperinflated and clear. No pleural effusion is seen. IMPRESSION: NO EVIDENCE FOR ACUTE FINDING. <Electronically signed by Coleman Little MD in OV> 09/17/16750 Dictated By: Coleman Little MD Dictated Date/Time: 09/17/16750 Transcribed Date/Time: 09/17/16 0744 Copy to: CC:Monroe Haile MD; David Bolton MD; Dahiana GARCIA Imaging - [facility] - [facility] - [facility] [address] [address] ph ([phone]) ph ([phone]) ph ([phone]) 1 of EKG Report: Sinus rhythm 99 CA 205 QTc 451 QRS axis 66 1st degree AV block. PACs. No ST-T changes Assessment - Problem List Assessment: Patient Problems Atypical chest pain (Acute) Small cell carcinoma of right lung (Acute) Anxiety disorder (Chronic 12/05/13) Depression (Chronic 12/05/13) Fibromyalgia (Chronic 12/05/13) Gastroesophageal reflux disease (Chronic 12/05/13) Obesity (Chronic 12/05/13) Tobacco abuse (Chronic 12/05/13) Osteoarthritis (Chronic 12/05/13) Primary hypothyroidism (Chronic 12/05/13) Plan: Atypical chest pain (Acute) She has acute chest pain waking her from sleep. She has had this before. It is not associated with EKG or troponin I changes. She had a stress test 07/09/2016 - poor exercise tolerance. This was low risk on NM scan. I don't think this is ischemic heart disease. Most likely this is GERD with esophageal spasm as she ate a pepperoni pizza the night before. I will have Dr. Peacock see her to rule out an oncological aspect. If there is no evidence of an oncological problem, I will discharge her home Small cell carcinoma of right lung (Acute) Per Dr. Peacock Anxiety disorder (Chronic 12/05/13) secondary diagnosis Depression (Chronic 12/05/13) secondary diagnosis Fibromyalgia (Chronic 12/05/13) secondary diagnosis Gastroesophageal reflux disease (Chronic 12/05/13) Likely cause of her chest pain Obesity (Chronic 12/05/13) secondary diagnosis Tobacco abuse (Chronic 12/05/13) counseled to be off tobacco Osteoarthritis (Chronic 12/05/13) secondary diagnosis Primary hypothyroidism (Chronic 12/05/13) secondary diagnosis I discussed the above with the patient and emphasized that she should stay away from fatty foods like pepperoni pizza.
[2016-09-17] MEDS ORDERED: DULoxetine DR CAP* 60 MG CAP.DR PO SCH (09:00)
[2016-09-17] MEDS ORDERED: Magnesium Oxide TAB* 400 MG PO SCH (09:00)
[2016-09-17] MEDS ORDERED: Pregabalin CAP(*) 50 MG PO SCH (09:00)
[2016-09-17] MEDS ORDERED: Multivitamins/Minerals TAB PO SCH (09:00)
[2016-09-17] MEDS ORDERED: Tramadol ER(NF) 100 MG TAB.ER PO SCH (09:00)
[2016-09-17] MEDS ORDERED: Omeprazole CAP* 20 MG PO SCH (09:00)
[2016-09-17] MEDS ORDERED: buPROPion SR TAB.SR* 150 MG PO SCH (09:00)
--- NOTE | 2016-09-17 23:17 | DS ---
CC: Dr. Haile DISCHARGE SUMMARY: DATE OF ADMISSION: 09/16/16 DATE OF DISCHARGE: 09/17/16 DISCHARGE DIAGNOSIS: Esophageal spasm. CONCURRENT DIAGNOSIS: Small cell lung cancer, currently receiving chemotherapy and radiation. HOSPITAL COURSE: Please see Dr. Bolton's history and physical for presentation. [facility] one hour of 7/10 chest pain. It woke her up in the middle of the night. She did not take any medication and it self resolved. No associated palpitations, shortness of breath, diaphoresis, or dizziness. She has had similar pain in the past. She had a cardiac evaluation in June with lo w exercise tolerance with low risk cardiac imaging. Of note, she had a pepperoni pizza before bed o n that night. She has had some sore throat from her radiation. She has been on omeprazole but does only taking Carafate because of the medication consistency. Otherwise has been tolerating chemother apy and radiation reasonably well. She has 3 troponins that were negative and given recent stress test, she does not need to be restres sed today. She has radiation scheduled later this morning. I will plan on discharging her home after radiation . DISCHARGE MEDICATIONS: 1. Alprazolam 0.5 mg t.i.d. p.r.n. 2. Wellbutrin SR 150 mg q.12 hours. 3. Carafate 10 mL suspension t.i.d. and at bedtime p.r.n. 4. Vitamin D 1000 a day. 5. Compazine 10 mg q.6 p.r.n. 6. Cymbalta 60 mg daily. 7. Levoxyl 200 mcg daily. 8. Lyrica 50 mg t.i.d. 9. Magnesium 400 mg 4 tablets twice a day. 10. Multivitamin. 11. Prilosec 20 mg b.i.d. 12. Potassium chloride 40 mEq daily. 13. Amoxicillin 500 mg t.i.d. for tooth abscess. Plan will be to discharge home. She should call me over the weekend with any additional complaints. I did instruct her to take Carafate before bed and not eat 2 hours before lying down. We will con tinue with radiation. FOLLOWUP PLAN: To follow up next week in clinic with Dr. Hernandez. Second issue has been recent dental abscess. She is going to be on amoxicillin, but we will plan to oth extraction once her blood counts rise but before her next cycle of chemotherapy. [id number]/[facility] #: [id number]
== END 2016-09-17 10:20 | disposition home or self-care (01) ==
LOC: ED 00:29 → MEDTELE 03:04
PROVIDERS: ADMIT Internal Medicine; ATTEND Internal Medicine
DX: K22.4 Dyskinesia of esophagus (principal); R07.9 Chest pain, unspecified; R05 Cough; R06.02 Shortness of breath; C34.90 Malignant neoplasm of unspecified part of unspecified bronchus or lung; R00.0 Tachycardia, unspecified; I49.1 Atrial premature depolarization; Z79.899 Other long term (current) drug therapy; Z87.891 Personal history of nicotine dependence; Z88.2 Allergy status to sulfonamides; Z88.8 Allergy status to other drugs, medicaments and biological substances
CPT/HCPCS: 36415; 71010; 82553; 83735; 83880; 84484; 93005; 96372; 99217; 99283; A9270-GY; G0378; J1644

== ENCOUNTER 2017-01-11 21:35 | Emergency (ER) | payer BC ==
[2017-01-11] MEDS ORDERED: NS 0.9% 1000 ML* 1,000 ML IV ONE (22:47)
[2017-01-11 23:31] LABS: Hematocrit 33 % (35-47); Hemoglobin 11.3 g/dl (12.0-16.0); Mean Corpuscular HGB Conc 34 g/dl (31-36); Mean Corpuscular Hemoglobin 32 pg (27-31); Mean Corpuscular Volume 94 fL (80-97); Mean Platelet Volume 7 um3 (7.4-10.4); Red Blood Count 3.55 10^6/ul (4.0-5.4); Red Cell Distribution Width 14 % (10.5-15); White Blood Count 6.1 10^3/ul (3.5-10.8)
[2017-01-11 23:45] LABS: Albumin 3.9 g/dL (3.2-5.2); C Reactive Protein 11.02 mg/L (< 5.00); Calcium 9.1 mg/dL (8.6-10.3); EGFR African American 84.3 (>60); EGFR Non-African American 65.5 (>60); Globulin 3.2 g/dL (2-4); Magnesium 1.9 mg/dL (1.9-2.7); Potassium 3.6 mmol/L (3.5-5.0); Total Bilirubin 0.2 mg/dL (0.2-1.0); Total Protein 7.1 g/dL (6.4-8.9)
[2017-01-11 23:46] LABS: Troponin I 0.01 ng/mL (<0.04)
[2017-01-12 00:14] LABS: TSH (Thyroid Stimulating Horm) 0.07 mcIU/mL (0.34-5.60)
[2017-01-12 01:00] LABS: Urine Bilirubin Negative (Negative); Urine Glucose Negative (Negative); Urine Nitrite Negative (Negative)
--- NOTE | 2017-01-12 06:48 | ED ---
Rafaela Giles Alfonso, scribed for Viktor Fitzpatrick MD on 01/12/17 at 0004 . Palpitations / Dysrhythmia - HPI Summary HPI Summary: This patient is a 61 year old F presenting to [facility] with a chief complaint of palpitations which began at rest 4 hours ago. She states I can see it beating in my chest it was like anxiety or something. The patient rates the pain 6/10 in severity. Symptoms aggravated by nothing. Symptoms alleviated by nothing. Patient reports feeling bloated, tired, SOB (resolved), and diarrhea (two days) . Patient denies CP, N/V, blood in the stools, diaphoresis, near syncope, lightheadedness, calf swelling, and calf pain. Two days ago she began retaking a prescription for Lyrica. PMHx includes lung cancer. - History of Current Complaint Chief Complaint: EDChestWallPain Time Seen by Provider: 01/11/17 23:50 Hx Obtained From: Patient Onset/Duration: Sudden Onset, Lasting Hours - 4 Timing: Constant Severity Currently: Moderate - 6/10 Aggravating: Nothing Alleviating: Nothing Associated Signs & Symptoms: Shortness of Breath - Allergy/Home Medications Allergies/Adverse Reactions: Allergies Allergy/AdvReac Type Severity Reaction Status Date / Time Sulfa Drugs Allergy Intermediate Hives Verified 01/11/17 21:41 CONTRAST Allergy See Comment Uncoded 01/11/17 21:41 PMH/Surg Hx/FS Hx/Imm Hx Endocrine/Hematology History: Reports: Hx Thyroid Disease - HYPOTHYROID Denies: Hx Diabetes, Hx Anemia Cardiovascular History: Reports: Hx Valvular Heart Disease - MV prolapse, Other Cardiovascular Problems/Disorders - VALVULAR HEART DISEASE(MV PROLAPSE) Denies: Hx Congestive Heart Failure, Hx Hypertension, Hx Pacemaker/ICD Respiratory History: Reports: Other Respiratory Problems/Disorders - LUNG CA, PT.STATES?LT.LUNG, JUST DX'D EARLIER THIS YEAR GI History: Reports: Hx Gastroesophageal Reflux Disease, Hx Hiatal Hernia, Other GI Disorders - GERD, ? IBS Denies: Hx Jaundice History: Denies: Hx Dialysis, Hx Renal Disease Musculoskeletal History: Reports: Hx Arthritis - osteoarthritis in lower back, Hx Orthopedic Injury Sensory History: Reports: Hx Contacts or Glasses Denies: Hx Hearing Aid Opthamlomology History: Reports: Hx Contacts or Glasses Neurological History: Reports: Hx Nerve Disease - fibromyalgia, Other Neuro Impairments/Disorders - L5-S1 PAIN INJECTION Psychiatric History: Reports: Hx Anxiety, Hx Depression Denies: Hx Panic Disorder - Cancer History Cancer Type, Location and Year: LUNG CA - NEWLY DX Hx Chemotherapy: No Hx Radiation Therapy: No - Surgical History Surgery Procedure, Year, and Place: SEVERAL FOOT SURGERIES-([facility]) [facility]. MENISCUS REPAIR- [facility] -. Partial thyroidectomy (cyst). Rt HAND- REMOVED A PIECE OF BONE Hx Anesthesia Reactions: No - Immunization History Date of Tetanus Vaccine: unk Date of Influenza Vaccine: unk Infectious Disease History: No Infectious Disease History: Denies: Traveled Outside the [place] in Last 30 Days - Family History Known Family History: Positive: Renal Disease, Other - arthritis, [place] - Social History Alcohol Use: Occasionally Alcohol Amount: 2-3 beers a couple times per week- pt seems evasive Hx Substance Use: No Substance Use Type: Reports: None Substance Use Comment - Amount & Last Used: Tramadol ER Hx Tobacco Use: Yes Smoking Status (MU): Former Smoker Type: Cigarettes Amount Used/How Often: 1 ppd Have You Smoked in the Last Year: Yes Review of Systems Negative: Skin Diaphoresis Positive: Palpitations. Negative: Chest Pain Positive: Shortness Of Breath Positive: Diarrhea, Other - feeling bloated; negative blood in the stools. Negative: Vomiting, Nausea Positive: Other - Negative calf swelling, and calf pain Neurological: Other - tired; negative near syncope, lightheadedness All Other Systems Reviewed And Are Negative: Yes Physical Exam - Summary Physical Exam Summary: General: well-appearing, no pain distress Skin: warm, color reflects adequate perfusion, dry Head: normal Eyes: EOMI, FAROOQ ENT: normal Neck: supple, nontender Respiratory: CTA, breath sounds present Cardiovascular: Mild tachycardia. Regular rhythm. Abdomen: soft, nontender Bowel: present Musculoskeletal: normal, strength/ROM intact Neurological: normal, sensory/motor intact, A&O x3 Psychological: affect/mood appropriate Triage Information Reviewed: Yes Vital Signs On Initial Exam: Initial Vitals Temp Pulse Resp BP Pulse Ox 97.8 F 108 20 116/81 97 01/11/17 21:37 01/11/17 21:37 01/11/17 21:37 01/11/17 21:37 01/11/17 21:37 Vital Signs Reviewed: Yes - Sanjeev Coma Scale Coma Scale Total: 15 Diagnostics - Vital Signs Vital Signs Temp Pulse Resp BP Pulse Ox 01/11/17 23:00 101 19 128/81 96 01/11/17 22:45 102 16 97 01/11/17 22:42 110/80 01/11/17 21:37 97.8 F 108 20 116/81 97 - Laboratory Lab Results: Lab Results 01/11/17 01/11/17 01/11/17 Range/Units 23:15 23:15 23:15 WBC (3.5-10.8) 10^3/ul RBC (4.0-5.4) 10^6/ul Hgb (12.0-16.0) g/dl Hct (35-47) % MCV (80-97) fL MCH (27-31) pg MCHC (31-36) g/dl RDW (10.5-15) % Plt Count (150-450) 10^3/ul MPV (7.4-10.4) um3 Neut % (Auto) (38-83) % Lymph % (Auto) (25-47) % [place] % (Auto) (1-9) % Eos % (Auto) (0-6) % Baso % (Auto) (0-2) % Absolute Neuts (auto) (1.5-7.7) 10^3/ul Absolute Lymphs (auto) (1.0-4.8) 10^3/ul Absolute Monos (auto) (0-0.8) 10^3/ul Absolute Eos (auto) (0-0.6) 10^3/ul Absolute Basos (auto) (0-0.2) 10^3/ul Absolute Nucleated RBC 10^3/ul Nucleated RBC % INR (Anticoag Therapy) 0.97 (0.89-1.11) APTT 31.4 (26.0-36.3) seconds Sodium 137 (133-145) mmol/L Potassium 3.6 (3.5-5.0) mmol/L Chloride 101 (101-111) mmol/L Carbon Dioxide 29 (22-32) mmol/L Anion Gap 7 (2-11) mmol/L BUN 15 (6-24) mg/dL Creatinine 0.88 (0.51-0.95) mg/dL Est GFR ( Amer) 84.3 (>60) Est GFR (Non-Af Amer) 65.5 (>60) BUN/Creatinine Ratio 17.0 (8-20) Glucose 135 H (70-100) mg/dL Lactic Acid (0.5-2.0) mmol/L Calcium 9.1 (8.6-10.3) mg/dL Magnesium 1.9 (1.9-2.7) mg/dL Total Bilirubin 0.20 (0.2-1.0) mg/dL AST 14 (13-39) U/L ALT 13 (7-52) U/L Alkaline Phosphatase 75 (34-104) U/L Total Creatine Kinase 39 (10-223) U/L CK-MB (CK-2) 2.1 (0.6-6.3) ng/mL Troponin I 0.01 (<0.04) ng/mL C-Reactive Protein 11.02 H (< 5.00) mg/L B-Natriuretic Peptide 16 ( - 100) pg/mL Total Protein 7.1 (6.4-8.9) g/dL Albumin 3.9 (3.2-5.2) g/dL Globulin 3.2 (2-4) g/dL Albumin/Globulin Ratio 1.2 (1-3) Lipase 10 L (11.0-82.0) U/L TSH Pending 01/11/17 01/11/17 Range/Units 23:15 23:15 WBC 6.1 (3.5-10.8) 10^3/ul RBC 3.55 L (4.0-5.4) 10^6/ul Hgb 11.3 L (12.0-16.0) g/dl Hct 33 L (35-47) % MCV 94 (80-97) fL MCH 32 H (27-31) pg MCHC 34 (31-36) g/dl RDW 14 (10.5-15) % Plt Count 210 (150-450) 10^3/ul MPV 7 L (7.4-10.4) um3 Neut % (Auto) 69.0 (38-83) % Lymph % (Auto) 18.1 L (25-47) % [place] % (Auto) 8.8 (1-9) % Eos % (Auto) 3.6 (0-6) % Baso % (Auto) 0.5 (0-2) % Absolute Neuts (auto) 4.2 (1.5-7.7) 10^3/ul Absolute Lymphs (auto) 1.1 (1.0-4.8) 10^3/ul Absolute Monos (auto) 0.5 (0-0.8) 10^3/ul Absolute Eos (auto) 0.2 (0-0.6) 10^3/ul Absolute Basos (auto) 0 (0-0.2) 10^3/ul Absolute Nucleated RBC 0 10^3/ul Nucleated RBC % 0 INR (Anticoag Therapy) (0.89-1.11) APTT (26.0-36.3) seconds Sodium (133-145) mmol/L Potassium (3.5-5.0) mmol/L Chloride (101-111) mmol/L Carbon Dioxide (22-32) mmol/L Anion Gap (2-11) mmol/L BUN (6-24) mg/dL Creatinine (0.51-0.95) mg/dL Est GFR ( Amer) (>60) Est GFR (Non-Af Amer) (>60) BUN/Creatinine Ratio (8-20) Glucose (70-100) mg/dL Lactic Acid 1.4 (0.5-2.0) mmol/L Calcium (8.6-10.3) mg/dL Magnesium (1.9-2.7) mg/dL Total Bilirubin (0.2-1.0) mg/dL AST (13-39) U/L ALT (7-52) U/L Alkaline Phosphatase (34-104) U/L Total Creatine Kinase (10-223) U/L CK-MB (CK-2) (0.6-6.3) ng/mL Troponin I (<0.04) ng/mL C-Reactive Protein (< 5.00) mg/L B-Natriuretic Peptide ( - 100) pg/mL Total Protein (6.4-8.9) g/dL Albumin (3.2-5.2) g/dL Globulin (2-4) g/dL Albumin/Globulin Ratio (1-3) Lipase (11.0-82.0) U/L TSH Result Diagrams: 01/11/17 23:15 01/11/17 23:15 Lab Statement: Any lab studies that have been ordered have been reviewed, and results considered in the medical decision making process. - Radiology CXR Radiology Interpretation Completed By: ED Physician - NAD - EKG 2154 Cardiac Rate: Tachycardia - BPM 105 EKG Rhythm: Sinus Tachycardia Ectopy: None 0319 Cardiac Rate: NL - BPM 89 EKG Rhythm: Sinus Rhythm Course/Dx - Course Course Of Treatment: WELL IN ED. NO CHEST PAIN. ID INTERVAL ELONGATION NOT NEW. REPEAT TROPONIN NEGATIVE. F/U DR IVERSON TODAY; RETURN IF WORSE. - Diagnoses Provider Diagnoses: Palpitations, Hyperthyroidism - Physician Notifications Discussed Care Of Patient With: Manuel Erazo Time Discussed With Above Provider: 06:32 Instructed by Provider To: Other - Consulted Dr. Erazo (hospitalist) regarding the patient's case. Discharge - Discharge Plan Condition: Stable Disposition: HOME Patient Education Materials: Palpitations (ED), Hyperthyroidism (ED) Referrals: Monroe Iverson MD [Primary Care Provider] - Additional Instructions: FOLLOW UP WITH YOUR DOCTOR. CALL TODAY. RETURN TO THE EMERGENCY DEPARTMENT FOR ANY WORSENING OF YOUR CONDITION; CHEST PAIN, SHORTNESS OF BREATH, RACING HEART, YOU FEEL LIKE YOU ARE GOING TO PASS OUT OR QUESTIONS OR CONCERNS. The documentation as recorded by the Rafaela quintero Alfonso accurately reflects the service I personally performed and the decisions made by me, Viktor Fitzpatrick MD.
[2017-01-12 07:15] VITALS: BP 131/68
--- NOTE | 2017-01-12 07:46 | RAD ---
HISTORY: Palpitation COMPARISONS: September 17, 2016 VIEWS: 1: frontal portable view of the chest at 11:30 PM FINDINGS: LINES AND TUBES: A left-sided chest port is noted with the tip overlying the cavoatrial junction. CARDIOMEDIASTINAL SILHOUETTE: The cardiomediastinal silhouette is normal for portable technique. PLEURA: The costophrenic angles are sharp. No pleural abnormalities are noted. LUNG PARENCHYMA: The lungs are clear. ABDOMEN: The upper abdomen is clear. There is no subphrenic gas. BONES AND SOFT TISSUES: No bone or soft tissue abnormalities are noted. IMPRESSION: NO ACTIVE CARDIOPULMONARY DISEASE.
== END 2017-01-12 07:20 | disposition home or self-care (01) ==
LOC: ED 21:35
DX: R00.2 Palpitations (principal); E05.90 Thyrotoxicosis, unspecified without thyrotoxic crisis or storm; R06.02 Shortness of breath; R19.7 Diarrhea, unspecified; Z87.891 Personal history of nicotine dependence
CPT/HCPCS: 36415; 71010; 80053; 81003; 82550; 82553; 83605; 83690; 83735; 83880; 84443; 84484; 85025; 85379; 85610; 85730; 86140; 93005; 99284; J1642

== ENCOUNTER 2017-03-15 15:57 | Emergency (ER) | payer BC ==
[2017-03-15] MEDS ORDERED: oxyCODONE/Acetamin 5/325 MG* TAB PO ONE (20:22)
[2017-03-15 20:45] LABS: Hematocrit 37 % (35-47); Hemoglobin 12.7 g/dl (12.0-16.0); Mean Corpuscular HGB Conc 34 g/dl (31-36); Mean Corpuscular Hemoglobin 31 pg (27-31); Mean Corpuscular Volume 90 fL (80-97); Mean Platelet Volume 7 um3 (7.4-10.4); Red Blood Count 4.13 10^6/ul (4.0-5.4); Red Cell Distribution Width 15 % (10.5-15); White Blood Count 5.4 10^3/ul (3.5-10.8)
--- NOTE | 2017-03-15 21:00 | RAD ---
INDICATION: Headaches COMPARISON: None TECHNIQUE: Noncontrast axial source images were acquired from the skull base to the vertex. FINDINGS: Ventricles/sulci: The ventricles and cisterns are normal in size and configuration for age. Brain parenchyma: There is no focal parenchymal finding, evidence of intracranial mass, or intracranial mass effect. Intracranial hemorrhage:None. Extra-axial spaces: There are no abnormal extra axial fluid collections or evidence of extra-axial mass. Calvarium: There is no calvarial fracture or other calvarial abnormality. Scalp: There is no evidence of scalp or extracalvarial soft tissue abnormality. Paranasal sinuses/mastoid: The paranasal sinuses and mastoid air cells are clear. Other: None. IMPRESSION: NEGATIVE EXAMINATION
[2017-03-15 21:14] LABS: Albumin 4.1 g/dL (3.2-5.2); BUN/Creatinine Ratio 12.1 (8-20); Calcium 9.1 mg/dL (8.6-10.3); EGFR African American 73.6 (>60); EGFR Non-African American 57.2 (>60); Globulin 2.9 g/dL (2-4); Potassium 3.6 mmol/L (3.5-5.0); Total Bilirubin 0.5 mg/dL (0.2-1.0)
[2017-03-15] MEDS ORDERED: Amoxicillin PO (*) 500 MG CAP PO ONE (21:59)
[2017-03-15] MEDS ORDERED: Acetaminophen TAB* 325 MG PO ONE (22:00)
--- NOTE | 2017-03-15 22:36 | ED ---
Jessica Giles Gabriel, scribed for Oleg Gomez on 03/15/17 at 2026 . Headache - HPI Summary HPI Summary: This patient is a 61 year old F presenting to [facility] with a chief complaint of GARRETT since last 5 days. The patient rates the pain 8/10 in severity and describes it as in her forehead and radiating into her eyes. Symptoms alleviated by nothing. Patient has taken Tylenol with no relief. Patient reports nausea and dizziness. Patient denies fevers, cp, sob, and abd pain. - History Of Current Complaint Chief Complaint: EDHeadache Stated Complaint: HEAD PAIN, PRESSURE BEHIND THE EYES Time Seen by Provider: 03/15/17 20:05 Hx Obtained From: Patient Onset/Duration: Started days ago - 5, Still Present Timing: Constant Character: Pressure Location of Headache: Frontal Allevating Factors: Nothing Associated Signs And Symptoms: Negative - fever, abd pain, cp, and sob - Allergies/Home Medications Allergies/Adverse Reactions: Allergies Allergy/AdvReac Type Severity Reaction Status Date / Time Sulfa Drugs Allergy Intermediate Hives Verified 01/11/17 21:41 CONTRAST Allergy See Comment Uncoded 01/11/17 21:41 PMH/Surg Hx/FS Hx/Imm Hx Previously Healthy: No Endocrine/Hematology History: Reports: Hx Thyroid Disease - HYPOTHYROID Denies: Hx Diabetes, Hx Anemia Cardiovascular History: Reports: Hx Valvular Heart Disease - MV prolapse, Other Cardiovascular Problems/Disorders - VALVULAR HEART DISEASE(MV PROLAPSE) Denies: Hx Congestive Heart Failure, Hx Hypertension, Hx Pacemaker/ICD Respiratory History: Reports: Other Respiratory Problems/Disorders - LUNG CA, PT.STATES?LT.LUNG, JUST DX'D EARLIER THIS YEAR GI History: Reports: Hx Gastroesophageal Reflux Disease, Hx Hiatal Hernia, Other GI Disorders - GERD, ? IBS Denies: Hx Jaundice History: Denies: Hx Dialysis, Hx Renal Disease Musculoskeletal History: Reports: Hx Arthritis - osteoarthritis in lower back, Hx Orthopedic Injury Sensory History: Reports: Hx Contacts or Glasses Denies: Hx Hearing Aid Opthamlomology History: Reports: Hx Contacts or Glasses Neurological History: Reports: Hx Nerve Disease - fibromyalgia, Other Neuro Impairments/Disorders - L5-S1 PAIN INJECTION Psychiatric History: Reports: Hx Anxiety, Hx Depression Denies: Hx Panic Disorder - Cancer History Cancer Type, Location and Year: LUNG CA - NEWLY DX Hx Chemotherapy: No Hx Radiation Therapy: No - Surgical History Surgery Procedure, Year, and Place: SEVERAL FOOT SURGERIES-([facility]XX) [facility]. MENISCUS REPAIR- [facility] -. Partial thyroidectomy (cyst). Rt HAND- REMOVED A PIECE OF BONE Hx Anesthesia Reactions: No - Immunization History Date of Tetanus Vaccine: unk Date of Influenza Vaccine: unk Infectious Disease History: No Infectious Disease History: Denies: Traveled Outside the [place] in Last 30 Days - Family History Known Family History: Positive: Renal Disease, Other - arthritis, [place] - Social History Alcohol Use: Occasionally Alcohol Amount: 2-3 beers a couple times per week- pt seems evasive Hx Substance Use: No Substance Use Type: Reports: None Substance Use Comment - Amount & Last Used: Tramadol ER Hx Tobacco Use: Yes Smoking Status (MU): Former Smoker Type: Cigarettes Amount Used/How Often: 1 ppd Have You Smoked in the Last Year: Yes Review of Systems Negative: Fever Negative: Chest Pain Negative: Shortness Of Breath Positive: Nausea. Negative: Abdominal Pain Neurological: Other - dizziness Positive: Headache All Other Systems Reviewed And Are Negative: Yes Physical Exam - Summary Physical Exam Summary: Appearance: Well appearing, no pain distress Skin: warm, dry, reflects adequate perfusion Head/face: normal Eyes: EOMI, FAROOQ ENT: Left ear tm red and dull Neck: supple, non-tender Respiratory: CTA, breath sounds present Cardiovascular: RRR, pulses symmetrical Abdomen: non-tender, soft Bowel: present Musculoskeletal: normal, strength/ROM intact Neuro: normal, sensory motor intact, A&Ox3 Triage Information Reviewed: Yes Vital Signs On Initial Exam: Initial Vitals Temp Pulse Resp BP Pulse Ox 97.6 F 96 16 129/77 100 03/15/17 16:20 03/15/17 16:20 03/15/17 16:20 03/15/17 16:20 03/15/17 16:20 Vital Signs Reviewed: Yes - Sanjeev Coma Scale Coma Scale Total: 15 Diagnostics - Vital Signs Vital Signs Temp Pulse Resp BP Pulse Ox 03/15/17 16:20 97.6 F 96 16 129/77 100 - Laboratory Lab Results: Lab Results 03/15/17 03/15/17 03/15/17 Range/Units 20:37 20:37 20:37 WBC 5.4 (3.5-10.8) 10^3/ul RBC 4.13 (4.0-5.4) 10^6/ul Hgb 12.7 (12.0-16.0) g/dl Hct 37 (35-47) % MCV 90 (80-97) fL MCH 31 (27-31) pg MCHC 34 (31-36) g/dl RDW 15 (10.5-15) % Plt Count 226 (150-450) 10^3/ul MPV 7 L (7.4-10.4) um3 Neut % (Auto) 64.3 (38-83) % Lymph % (Auto) 24.8 L (25-47) % [place] % (Auto) 8.6 (1-9) % Eos % (Auto) 1.3 (0-6) % Baso % (Auto) 1.0 (0-2) % Absolute Neuts (auto) 3.4 (1.5-7.7) 10^3/ul Absolute Lymphs (auto) 1.3 (1.0-4.8) 10^3/ul Absolute Monos (auto) 0.5 (0-0.8) 10^3/ul Absolute Eos (auto) 0.1 (0-0.6) 10^3/ul Absolute Basos (auto) 0.1 (0-0.2) 10^3/ul Absolute Nucleated RBC 0 10^3/ul Nucleated RBC % 0 INR (Anticoag Therapy) 0.98 (0.89-1.11) APTT 27.5 (26.0-36.3) seconds Sodium 137 (133-145) mmol/L Potassium 3.6 (3.5-5.0) mmol/L Chloride 100 L (101-111) mmol/L Carbon Dioxide 28 (22-32) mmol/L Anion Gap 9 (2-11) mmol/L BUN 12 (6-24) mg/dL Creatinine 0.99 H (0.51-0.95) mg/dL Est GFR ( Amer) 73.6 (>60) Est GFR (Non-Af Amer) 57.2 (>60) BUN/Creatinine Ratio 12.1 (8-20) Glucose 83 (70-100) mg/dL Calcium 9.1 (8.6-10.3) mg/dL Total Bilirubin 0.50 (0.2-1.0) mg/dL AST 17 (13-39) U/L ALT 16 (7-52) U/L Alkaline Phosphatase 68 (34-104) U/L Troponin I 0.00 (<0.04) ng/mL Total Protein 7.0 (6.4-8.9) g/dL Albumin 4.1 (3.2-5.2) g/dL Globulin 2.9 (2-4) g/dL Albumin/Globulin Ratio 1.4 (1-3) Result Diagrams: 03/15/17 20:37 03/15/17 20:37 Lab Statement: Any lab studies that have been ordered have been reviewed, and results considered in the medical decision making process. - CT CT brain CT Interpretation Completed By: Radiologist - , NEGATIVE EXAMINATION ED physician has reviewed this radiology report and agrees. - EKG 20:34 Cardiac Rate: NL EKG Rhythm: Sinus Rhythm - NSR at 88 BPM EKG Interpretation: no acute changes Headache Course/Dx - Course Assessment/Plan: This patient is a 61 year old F presenting to [facility] with a chief complaint of GARRETT since last 5 days. An EKG reveals NSR. CT brain reveals, per radiologist, NEGATIVE EXAMINATION. Blood was drawn with no significant abnormalities. In the ED course the patient was given Amoxicillin, Oxycodone, and Acetaminophen. Patient will be discharged with prescription for amoxicillin and follow up from Dr. Childress. Pt was diagnoses with otitis media. The patient is agreeable with this plan - Diagnoses Differential Diagnosis/HQI/PQRI: Subdural Hematoma, Migraine, Sinus Headache Provider Diagnoses: Otitis media Discharge - Discharge Plan Condition: Stable Disposition: HOME Prescriptions: Acetaminophen TAB* [Tylenol TAB*] 650 mg PO Q6H PRN #30 tab MDD 3 PRN Reason: Pain Amoxicillin PO (*) [Amoxicillin 875 MG (*)] 875 mg PO BID #20 tab Patient Education Materials: Acetaminophen (By mouth), Amoxicillin (By mouth), Otitis Media (ED) Referrals: Monroe Haile MD [Primary Care Provider] - 3 Days Additional Instructions: RETURN TO THE EMERGENCY DEPARTMENT FOR CHANGING OR WORSENING SYMPTOMS. The documentation as recorded by the Jessica quintero Gabriel accurately reflects the service I personally performed and the decisions made by , Oleg Gomez.
[2017-03-15 23:17] VITALS: BP 116/74
== END 2017-03-15 22:46 | disposition home or self-care (01) ==
LOC: ED 15:57
DX: H66.90 Otitis media, unspecified, unspecified ear (principal); R51 Headache; R11.0 Nausea
CPT/HCPCS: 36415; 70450; 80053; 84484; 85025; 85610; 85730; 93005; 99282; A9270-GY

== ENCOUNTER 2017-06-01 16:11 | Emergency (ER) | payer BC ==
[2017-06-01 16:18] VITALS: BP 116/82
[2017-06-01] MEDS ORDERED: Ibuprofen TAB* 600 MG PO ONE (16:25)
[2017-06-01] MEDS ORDERED: Acetaminophen TAB* 325 MG PO ONE (16:49)
--- NOTE | 2017-06-01 17:01 | RAD ---
Indication: Head injury. CT of the brain was performed without IV contrast. Comparison is made with previous exam dated March 15, 2017. Prior MRI dated May 19, 2017 was also reviewed. Ventricular structures are midline. No midline shift is noted. The extra-axial spaces are unremarkable. There is no evidence of intracranial mass or hemorrhage. There is a hypodensity likely representing encephalomalacia in the right parietal lobe. Mastoid air cells and paranasal sinuses are otherwise unremarkable. No fracture is noted. 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 No intracranial mass or hemorrhage is noted.
--- NOTE | 2017-06-01 20:57 | ED ---
Jessica Giles Gabriel, scribed for Boo Reyes MD on 06/01/17 at 1641 . Adult Trauma - HPI Summary HPI Summary: This patient is a 62 year old F presenting to [facility] s/p mechanical fall that occurred yesterday. Pt tripped and hit the left side of her head, left arm, left wrist, and left knee. The patient rates the pain 6/10 in severity. Patient reports left sided GARRETT and left arm pain. Patient denies decreased mental acuity and LOC. Pt went to the chiropractor yesterday and her neck is sore due to this. Pt recently had radiation treatment. - History of Current Complaint Chief Complaint: EDHeadInjury Stated Complaint: FALL/LT SIDE PAIN Time Seen by Provider: 06/01/17 16:21 Hx Obtained From: Patient Mechanism of Injury: Fall Ambulatory at the Scene: Yes Loss of Consciousness: no loss of consciousness Onset/Duration: Still Present Onset of Pain: Post Accident Onset Severity: Mild Current Severity: Moderate Pain Intensity: 6 Pain Scale Used: 0-10 Numeric Location: Head, Neck, Other - left arm Associated Signs & Symptoms: Positive: Other: - GARRETT and left arm pain. Negative : Loss of Consciousness, Memory Loss - Allergy/Home Medications Allergies/Adverse Reactions: Allergies Allergy/AdvReac Type Severity Reaction Status Date / Time MS Sulfa Drugs [Sulfa Drugs] Allergy Intermediate Hives Verified 06/01/17 16:18 MS Gadolinium [Gadolinium] Allergy Unknown Verified 06/01/17 16:18 Reaction Details Adhesive Tape AdvReac Rash Verified 06/01/17 16:18 PMH/Surg Hx/FS Hx/Imm Hx Endocrine/Hematology History: Reports: Hx Thyroid Disease - HYPOTHYROID Denies: Hx Diabetes, Hx Anemia Cardiovascular History: Reports: Hx Valvular Heart Disease - MV prolapse, Other Cardiovascular Problems/Disorders - VALVULAR HEART DISEASE(MV PROLAPSE) Denies: Hx Congestive Heart Failure, Hx Hypertension, Hx Pacemaker/ICD Respiratory History: Reports: Other Respiratory Problems/Disorders - LUNG CA, PT.STATES?LT.LUNG, JUST DX'D EARLIER THIS YEAR GI History: Reports: Hx Gastroesophageal Reflux Disease, Hx Hiatal Hernia, Other GI Disorders - GERD, ? IBS Denies: Hx Jaundice History: Denies: Hx Dialysis, Hx Renal Disease Musculoskeletal History: Reports: Hx Arthritis - osteoarthritis in lower back, Hx Orthopedic Injury Sensory History: Reports: Hx Contacts or Glasses Denies: Hx Hearing Aid Opthamlomology History: Reports: Hx Contacts or Glasses Neurological History: Reports: Hx Nerve Disease - fibromyalgia, Other Neuro Impairments/Disorders - L5-S1 PAIN INJECTION Psychiatric History: Reports: Hx Anxiety, Hx Depression Denies: Hx Panic Disorder - Cancer History Cancer Type, Location and Year: LUNG CA Hx Chemotherapy: No Hx Radiation Therapy: No - Surgical History Surgery Procedure, Year, and Place: SEVERAL FOOT SURGERIES-(LEXX) [facility]. MENISCUS REPAIR- [facility] -. Partial thyroidectomy (cyst). Rt HAND- REMOVED A PIECE OF BONE Hx Anesthesia Reactions: No - Immunization History Date of Tetanus Vaccine: unk Date of Influenza Vaccine: unk Infectious Disease History: No Infectious Disease History: Denies: Traveled Outside the [place] in Last 30 Days - Family History Known Family History: Positive: Renal Disease, Other - arthritis, CA - Social History Alcohol Use: Occasionally Alcohol Amount: 2-3 beers a couple times per week- pt seems evasive Hx Substance Use: No Substance Use Type: Reports: None Substance Use Comment - Amount & Last Used: Tramadol ER Hx Tobacco Use: Yes Smoking Status (MU): Former Smoker Type: Cigarettes Amount Used/How Often: 1 ppd Have You Smoked in the Last Year: Yes Review of Systems Positive: Other - left arm pain Neurological: Negative - LOC Positive: Headache All Other Systems Reviewed And Are Negative: Yes Physical Exam - Summary Physical Exam Summary: Appearance: The patient is well-nourished in no acute distress and in no acute pain. Skin: The skin is warm and dry and skin color reflects adequate perfusion. HEENT: The head is normocephalic and atraumatic. The pupils are equal and reactive. The conjunctivae are clear and without drainage. Nares are patent and without drainage. Mouth reveals moist mucous membranes and the throat is without erythema and exudate. The external ears are intact. The ear canals are patent and without drainage. The tympanic membranes are intact. Neck: the neck is supple with full range of motion and non-tender. There are no carotid bruits. There is no neck vein distension. Respiratory: Chest is non-tender. Lungs are clear to auscultation and breath sounds are symmetrical and equal. Cardiovascular: Heart is regular rate and rhythm. There is no murmur or rub auscultated. There is no peripheral edema and pulses are symmetrical and equal. Abdomen: The abdomen is soft and non-tender. There are normal bowel sounds heard in all four quadrants and there is no organomegaly palpated. Musculoskeletal: There is no back tenderness noted. Extremities are non-tender with full range of motion. There is good capillary refill. There is no peripheral edema or calf tenderness elicited. Neurological: Patient is alert and oriented to person, place and time. The patient has symmetrical motor strength in all four extremities. Cranial nerves are grossly intact. Deep tendon reflexes are symmetrical and equal in all four extremities. Psychiatric: The patient has an appropriate affect and does not exhibit any anxiety or depression. Triage Information Reviewed: Yes Vital Signs On Initial Exam: Initial Vitals Temp Pulse Resp BP Pulse Ox 98.2 F 103 16 116/82 97 06/01/17 16:14 06/01/17 16:14 06/01/17 16:14 06/01/17 16:14 06/01/17 16:14 Vital Signs Reviewed: Yes Diagnostics - Vital Signs Vital Signs Temp Pulse Resp BP Pulse Ox 06/01/17 16:14 98.2 F 103 16 116/82 97 - Laboratory Lab Statement: Any lab studies that have been ordered have been reviewed, and results considered in the medical decision making process. 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 No intracranial mass or hemorrhage is noted. ED physician has reviewed this radiology report. Adult Trauma Course/Dx - Course Course Of Treatment: Ms. Anderson presented C/O falling yesterday and hitting her head and left side. She still has a left sided GARRETT and left wrist, shoulder and leg pain. She was n't really tender to palpation when distracted and a CT of her head was normal. I recomended symptomatic treatment. - Diagnoses Provider Diagnoses: Head injury Discharge - Discharge Plan Condition: Stable Disposition: HOME Patient Education Materials: Head Injury (ED) Referrals: Monroe Haiel MD [Primary Care Provider] - 4 Days Additional Instructions: RETURN TO EMERGENCY DEPARTMENT FOR ANY NEW OR WORSENING SYMPTOMS The documentation as recorded by the Jessica quintero Gabriel accurately reflects the service I personally performed and the decisions made by me, Boo Reyes MD.
== END 2017-06-01 18:52 | disposition home or self-care (01) ==
LOC: ED 16:11
DX: S09.90XA Unspecified injury of head, initial encounter (principal); E03.9 Hypothyroidism, unspecified; K21.9 Gastro-esophageal reflux disease without esophagitis; M79.7 Fibromyalgia; I34.1 Nonrheumatic mitral (valve) prolapse; W19.XXXA Unspecified fall, initial encounter; Y92.9 Unspecified place or not applicable; Z87.891 Personal history of nicotine dependence; Z85.118 Personal history of other malignant neoplasm of bronchus and lung
CPT/HCPCS: 70450; 99282; A9270-GY

== ENCOUNTER 2017-08-03 17:03 | Observation (INO) | payer BC ==
[2017-08-03] MEDS ORDERED: Morphine INJ* 4 MG/ML 1 ML CARPUJECT IV ONE (17:49)
[2017-08-03 18:01] LABS: ABS Basophils 0 10^3/ul (0-0.2); ABS Eosinophils 0.1 10^3/ul (0-0.6); ABS Lymphocytes 1.2 10^3/ul (1.0-4.8); ABS Monocytes 0.4 10^3/ul (0-0.8); ABS Neutrophils 2.8 10^3/ul (1.5-7.7); ABS Nucleated RBC 0 10^3/ul; Eosinophil % 1.5 % (0-6); Hematocrit 37 % (35-47); Hemoglobin 12.5 g/dl (12.0-16.0); Lymphocyte % 26.9 % (25-47); Mean Corpuscular HGB Conc 34 g/dl (31-36); Mean Corpuscular Hemoglobin 32 pg (27-31); Mean Corpuscular Volume 92 fL (80-97); Mean Platelet Volume 7.2 um3 (7.4-10.4); Nucleated Red Blood Cells % 0.1; Platelet Count 233 10^3/ul (150-450); Red Blood Count 3.95 10^6/ul (4.0-5.4); Red Cell Distribution Width 14 % (10.5-15); White Blood Count 4.5 10^3/ul (3.5-10.8)
[2017-08-03] MEDS ORDERED: Morphine VIAL* 4 MG/ML VIAL (1 ml vial) IV ONE ×2 (18:03→18:07)
[2017-08-03 18:05] LABS: INR 0.96 (0.77-1.02)
[2017-08-03] MEDS: NS 0.9% 1000 ML* 1,000 ML IV SCH ×2 (18:08→23:59)
--- NOTE | 2017-08-03 18:18 | RAD ---
INDICATION: Chest pain. COMPARISON: Comparison is made with a prior study from January 11, 2017. TECHNIQUE: A portable view of the chest was obtained. FINDINGS: Cardiac and mediastinal contours appear to be within normal limits. The lungs are clear. No pleural effusion is seen. IMPRESSION: NO EVIDENCE FOR ACUTE DISEASE.
[2017-08-03 18:20] LABS: EGFR Non-African American 60.5 (>60)
[2017-08-03] MEDS ORDERED: Iohexol 350* (CONTRAST) 500 ML MDV IV ONE (20:09)
--- NOTE | 2017-08-03 21:20 | RAD ---
INDICATION: Chest pain. COMPARISON: Comparison is made with a prior CT of the chest from May 12, 2017. Correlation is also made with a prior chest x-ray study from August 03, 2017. TECHNIQUE: A CT angiogram of the chest was performed with intravenous following intravenous injection of 83 ml of Omnipaque 350 nonionic contrast. Contiguous axial sections were obtained from the lung apices through the lung bases. Images were reconstructed in the coronal and sagittal planes. FINDINGS: There is an intraluminal filling defect in a solitary left lower lobe basilar segmental artery most consistent with a pulmonary embolus. No other emboli are seen. The heart is within normal limits in size. No pericardial effusion is present. The thoracic aorta is normal in caliber and demonstrates homogeneous contrast opacification. No significant enlarged mediastinal or hilar lymph nodes are seen. There is a moderate size hiatal hernia. There is nonspecific circumferential thickening of the wall of the mid and distal esophagus suggestive of esophagitis. There is a small linear density in the right upper lobe which is unchanged from the prior exam suggestive of atelectasis or scarring. There is a small infiltrate in the right middle lobe likely representing atelectasis. The lungs are otherwise clear. No pleural effusion is seen. No significant focal osseous abnormality is seen. The results of this exam were called to referring clinician. IMPRESSION: 1. SOLITARY LEFT LOWER LOBE BASILAR SEGMENTAL ARTERY PULMONARY EMBOLUS. 2. MODERATE SIZE CENTRAL HERNIA AND THICKENING OF THE WALL OF THE MID AND DISTAL ESOPHAGUS NONSPECIFIC ALTHOUGH SUGGESTIVE OF ESOPHAGITIS. RECOMMEND CLINICAL CORRELATION.
--- NOTE | 2017-08-03 22:07 | ED ---
Amor Giles Natalie, scribed for Boo Reyes MD on 08/03/17 at 1755 . Shortness of Breath - HPI Summary HPI Summary: The pt is a 62 y/o F presenting to the ED c/o constant SOB and feeling of irregular heartbeat for three days. She states the pain is not like chest pain. The pain is rated 4/10 in severity. She additionally c/o sleep loss due to being afraid of not waking up. She has had similar episodes of this in the past. Hx: lung cancer, GERD, hypothyroid, fibromyalgia, arthritis - History of Current Complaint Chief Complaint: EDChestPainROMI Time Seen by Provider: 08/03/17 17:31 Hx Obtained From: Patient Onset/Duration: Gradual Onset, Lasting Days, Still Present Timing: Constant Current Severity: Moderate Aggrevating Factors: Nothing Alleviating Factors: Nothing - Allergy/Home Medications Allergies/Adverse Reactions: Allergies Allergy/AdvReac Type Severity Reaction Status Date / Time adhesive tape Allergy Rash Verified 08/03/17 18:13 Gadolinium-Containing Allergy Unknown Verified 08/03/17 18:13 Contrast Medi Reaction Details Sulfa (Sulfonamide Allergy Hives Verified 08/03/17 18:13 Antibiotics) PMH/Surg Hx/FS Hx/Imm Hx Endocrine/Hematology History: Reports: Hx Thyroid Disease - HYPOTHYROID Denies: Hx Diabetes, Hx Anemia Cardiovascular History: Reports: Hx Valvular Heart Disease - MV prolapse, Other Cardiovascular Problems/Disorders - VALVULAR HEART DISEASE(MV PROLAPSE) Denies: Hx Congestive Heart Failure, Hx Hypertension, Hx Pacemaker/ICD Respiratory History: Reports: Other Respiratory Problems/Disorders - LUNG CA, PT.STATES?LT.LUNG, JUST DX'D EARLIER THIS YEAR GI History: Reports: Hx Gastroesophageal Reflux Disease, Hx Hiatal Hernia, Other GI Disorders - GERD, ? IBS Denies: Hx Jaundice History: Denies: Hx Dialysis, Hx Renal Disease Musculoskeletal History: Reports: Hx Arthritis - osteoarthritis in lower back, Hx Orthopedic Injury Sensory History: Reports: Hx Contacts or Glasses Denies: Hx Hearing Aid Opthamlomology History: Reports: Hx Contacts or Glasses Neurological History: Reports: Hx Nerve Disease - fibromyalgia, Other Neuro Impairments/Disorders - L5-S1 PAIN INJECTION Psychiatric History: Reports: Hx Anxiety, Hx Depression Denies: Hx Panic Disorder - Cancer History Cancer Type, Location and Year: LUNG CA Hx Chemotherapy: No Hx Radiation Therapy: No - Surgical History Surgery Procedure, Year, and Place: SEVERAL FOOT SURGERIES-(LEXX) [facility]. MENISCUS REPAIR- [facility] -. Partial thyroidectomy (cyst). Rt HAND- REMOVED A PIECE OF BONE Hx Anesthesia Reactions: No - Immunization History Date of Tetanus Vaccine: unk Date of Influenza Vaccine: unk Infectious Disease History: No Infectious Disease History: Denies: Traveled Outside the [place] in Last 30 Days - Family History Known Family History: Positive: Renal Disease, Other - arthritis, [place] - Social History Alcohol Use: Occasionally Alcohol Amount: 2-3 beers a couple times per week- pt seems evasive Hx Substance Use: No Substance Use Type: Reports: None Substance Use Comment - Amount & Last Used: Tramadol ER Hx Tobacco Use: Yes Smoking Status (MU): Former Smoker Type: Cigarettes Amount Used/How Often: 1 ppd Have You Smoked in the Last Year: Yes Review of Systems Positive: Other - feeling of irregular heartbeat. Negative: Chest Pain Positive: Shortness Of Breath Neurological: Other - sleep loss All Other Systems Reviewed And Are Negative: Yes Physical Exam - Summary Physical Exam Summary: Appearance: The patient is well-nourished in no acute distress and in no acute pain. Skin: The skin is warm and dry and skin color reflects adequate perfusion. HEENT: The head is normocephalic and atraumatic. The pupils are equal and reactive. The conjunctivae are clear and without drainage. Nares are patent and without drainage. Mouth reveals moist mucous membranes and the throat is without erythema and exudate. The external ears are intact. The ear canals are patent and without drainage. The tympanic membranes are intact. Neck: the neck is supple with full range of motion and non-tender. There are no carotid bruits. There is no neck vein distension. Respiratory: Chest is non-tender. Lungs are clear to auscultation and breath sounds are symmetrical and equal. Cardiovascular: Heart is regular rate and rhythm. There is no murmur or rub auscultated. There is no peripheral edema and pulses are symmetrical and equal. Abdomen: The abdomen is soft and non-tender. There are normal bowel sounds heard in all four quadrants and there is no organomegaly palpated. Musculoskeletal: There is no back tenderness noted. Extremities are non-tender with full range of motion. There is good capillary refill. There is no peripheral edema or calf tenderness elicited. Neurological: Patient is alert and oriented to person, place and time. The patient has symmetrical motor strength in all four extremities. Cranial nerves are grossly intact. Deep tendon reflexes are symmetrical and equal in all four extremities. Psychiatric: The patient has an appropriate affect and does not exhibit any anxiety or depression. Triage Information Reviewed: Yes Vital Signs On Initial Exam: Initial Vitals Temp Pulse Resp BP Pulse Ox 98.0 F 96 20 131/77 98 08/03/17 17:06 08/03/17 17:06 08/03/17 17:06 08/03/17 17:06 08/03/17 17:06 Vital Signs Reviewed: Yes Diagnostics - Vital Signs Vital Signs Temp Pulse Resp BP Pulse Ox 08/03/17 17:06 98.0 F 96 20 131/77 98 - Laboratory Lab Results: Lab Results 08/03/17 08/03/17 08/03/17 Range/Units 17:35 17:35 17:35 WBC (3.5-10.8) 10^3/ul RBC (4.0-5.4) 10^6/ul Hgb (12.0-16.0) g/dl Hct (35-47) % MCV (80-97) fL MCH (27-31) pg MCHC (31-36) g/dl RDW (10.5-15) % Plt Count (150-450) 10^3/ul MPV (7.4-10.4) um3 Neut % (Auto) (38-83) % Lymph % (Auto) (25-47) % Snyder % (Auto) (0-7) % Eos % (Auto) (0-6) % Baso % (Auto) (0-2) % Absolute Neuts (auto) (1.5-7.7) 10^3/ul Absolute Lymphs (auto) (1.0-4.8) 10^3/ul Absolute Monos (auto) (0-0.8) 10^3/ul Absolute Eos (auto) (0-0.6) 10^3/ul Absolute Basos (auto) (0-0.2) 10^3/ul Absolute Nucleated RBC 10^3/ul Nucleated RBC % INR (Anticoag Therapy) 0.96 (0.77-1.02) APTT 28.1 (26.0-36.3) seconds D-Dimer, Quantitative 288 H (Less Than 230) ng/mL Sodium 139 (139-145) mmol/L Potassium 3.8 (3.5-5.0) mmol/L Chloride 101 (101-111) mmol/L Carbon Dioxide 27 (22-32) mmol/L Anion Gap 11 (2-11) mmol/L BUN 8 (6-24) mg/dL Creatinine 0.94 (0.51-0.95) mg/dL Est GFR ( Amer) 77.9 (>60) Est GFR (Non-Af Amer) 60.5 (>60) BUN/Creatinine Ratio 8.5 (8-20) Glucose 92 (70-100) mg/dL Lactic Acid (0.5-2.0) mmol/L Calcium 9.2 (8.6-10.3) mg/dL Magnesium 1.8 L (1.9-2.7) mg/dL Total Bilirubin 0.50 (0.2-1.0) mg/dL AST 16 (13-39) U/L ALT 14 (7-52) U/L Alkaline Phosphatase 72 (34-104) U/L Total Creatine Kinase 60 (10-223) U/L CK-MB (CK-2) 3.6 (0.6-6.3) ng/mL Troponin I 0.00 (<0.04) ng/mL C-Reactive Protein 5.97 H (< 5.00) mg/L B-Natriuretic Peptide 22 ( - 100) pg/mL Total Protein 6.9 (6.4-8.9) g/dL Albumin 4.1 (3.2-5.2) g/dL Globulin 2.8 (2-4) g/dL Albumin/Globulin Ratio 1.5 (1-3) Lipase 11 (11.0-82.0) U/L TSH 4.22 (0.34-5.60) mcIU/mL 08/03/17 08/03/17 08/03/17 Range/Units 17:35 17:35 20:10 WBC 4.5 (3.5-10.8) 10^3/ul RBC 3.95 L (4.0-5.4) 10^6/ul Hgb 12.5 (12.0-16.0) g/dl Hct 37 (35-47) % MCV 92 (80-97) fL MCH 32 H (27-31) pg MCHC 34 (31-36) g/dl RDW 14 (10.5-15) % Plt Count 233 (150-450) 10^3/ul MPV 7.2 L (7.4-10.4) um3 Neut % (Auto) 62.5 (38-83) % Lymph % (Auto) 26.9 (25-47) % Snyder % (Auto) 8.6 H (0-7) % Eos % (Auto) 1.5 (0-6) % Baso % (Auto) 0.5 (0-2) % Absolute Neuts (auto) 2.8 (1.5-7.7) 10^3/ul Absolute Lymphs (auto) 1.2 (1.0-4.8) 10^3/ul Absolute Monos (auto) 0.4 (0-0.8) 10^3/ul Absolute Eos (auto) 0.1 (0-0.6) 10^3/ul Absolute Basos (auto) 0 (0-0.2) 10^3/ul Absolute Nucleated RBC 0 10^3/ul Nucleated RBC % 0.1 INR (Anticoag Therapy) (0.77-1.02) APTT (26.0-36.3) seconds D-Dimer, Quantitative (Less Than 230) ng/mL Sodium (139-145) mmol/L Potassium (3.5-5.0) mmol/L Chloride (101-111) mmol/L Carbon Dioxide (22-32) mmol/L Anion Gap (2-11) mmol/L BUN (6-24) mg/dL Creatinine (0.51-0.95) mg/dL Est GFR ( Amer) (>60) Est GFR (Non-Af Amer) (>60) BUN/Creatinine Ratio (8-20) Glucose (70-100) mg/dL Lactic Acid 1.0 (0.5-2.0) mmol/L Calcium (8.6-10.3) mg/dL Magnesium (1.9-2.7) mg/dL Total Bilirubin (0.2-1.0) mg/dL AST (13-39) U/L ALT (7-52) U/L Alkaline Phosphatase (34-104) U/L Total Creatine Kinase (10-223) U/L CK-MB (CK-2) (0.6-6.3) ng/mL Troponin I 0.00 (<0.04) ng/mL C-Reactive Protein (< 5.00) mg/L B-Natriuretic Peptide ( - 100) pg/mL Total Protein (6.4-8.9) g/dL Albumin (3.2-5.2) g/dL Globulin (2-4) g/dL Albumin/Globulin Ratio (1-3) Lipase (11.0-82.0) U/L TSH (0.34-5.60) mcIU/mL Result Diagrams: 08/03/17 17:35 08/03/17 17:35 Lab Statement: Any lab studies that have been ordered have been reviewed, and results considered in the medical decision making process. - Radiology CXR Xray Interpretation: No Acute Changes - No evidence for acute disease. ED physician has reviewed this report. Radiology Interpretation Completed By: Radiologist - CT CTA Chest/Thorax CT Interpretation: Positive (See Comments) - 1. Solitary left lower lobe basilar segmental artery pulmonary embolus. 2. Moderate size central hernia and thickening of the wall of the mid and distal esophagus nonspecific although suggestive of esophagitis. Recommend clinical correlation. ED physician has reviewed this report. CT Interpretation Completed By: Radiologist - EKG 17:08 Cardiac Rate: Tachycardia EKG Rhythm: Sinus Tachycardia - 110 BPM EKG Interpretation: Ventricular bigeminy. Course/Dx - Course Course Of Treatment: Ms. Anderson has been feeling palpitations and SOB for a few days. She was found to be in bigeminy and to have a small PE. She is being admitted to the hospitalist service. - Diagnoses Provider Diagnoses: Ventricular bigeminy, Pulmonary embolism Discharge - Sign-Out/Discharge Documenting (check all that apply): Discharge - Discharge Plan Condition: Stable Disposition: [facility]ITT[facility] Referrals: Monroe Haile MD [Primary Care Provider] - - Billing Disposition and Condition Condition: STABLE [place] [place] The documentation as recorded by the Amor quintero Natalie accurately reflects the service I personally performed and the decisions made by , Boo Reyes MD.
[2017-08-03] MEDS ORDERED: Al Hydrox/Mg Hydrox/Simet LIQ* 30 ML UDC PO PRN (22:15)
[2017-08-03] MEDS ORDERED: Ondansetron INJ* 2 MG/ML VIAL IV PRN (22:15)
[2017-08-03] MEDS ORDERED: Acetaminophen TAB* 325 MG PO PRN (22:15)
[2017-08-03] MEDS ORDERED: Senna TAB PO PRN (22:15)
[2017-08-03] MEDS ORDERED: Docusate CAP* 100 MG PO PRN (22:15)
[2017-08-03] MEDS ORDERED: ALPRAZolam TAB* 0.5 MG PO PRN (22:27)
[2017-08-03] MEDS ORDERED: Magnesium CITRATE* 300 ML BTL PO PRN (22:27)
[2017-08-03] MEDS ORDERED: traMADol TAB* 50 MG PO PRN (22:27)
[2017-08-03] MEDS ORDERED: Magnesium Sulfate 2 GM IV* 2 GM/50 ML BAG IVPB ONE (22:29)
[2017-08-03] MEDS ORDERED: Enoxaparin(*) 100 MG/ML SYR SUBCUT SCH (23:00)
--- NOTE | 2017-08-03 23:24 | HP ---
CC: Monroe Haile MD * HISTORY AND PHYSICAL: DATE OF ADMISSION: 08/03/17 TIME OF EVALUATION: 2199. PRIMARY CARE PHYSICIAN: Monroe Haile MD CHIEF COMPLAINT: Heart racing and shortness of breath. HISTORY OF PRESENT ILLNESS: This is a 62-year-old female with recent diagnosis of small cell lung carcinoma, status post chemo and radiation, who states she is now under remission, who presents to the emergency room after having weeks of heart racing in the past few days, having worsening of shortness of breath. She states she had a physical with Dr. Haile few days ago with an unremarkable workup at that time. She also has noticed some swelling in her legs and some weight gain, but she admits to a poor diet and not eating well. She denies any indigestion. No nausea, vomiting, or diarrhea. She does have some abdominal discomfort that she thinks is due to gluten intolerance. However, she states that her heart has been racing for the past several weeks, it has been constant and over the past few days she beginning progressively short of breath. No cough. No fevers. She does get bilateral breast pain that she feels is due to her fibromyalgia. In the emergency room, patient had labs and imaging. She was found to have pulmonary emboli. She was given morphine 4 mg and was referred to the hospitalist service for further evaluation. PAST MEDICAL HISTORY: 1. History of small cell carcinoma of the right lung, status post chemo and radiation. She states she had brain radiation as well. She is followed by Dr. Hernandez. Per patient, she is in remission. 2. Morbid obesity. 3. History of tobacco use. 4. Fibromyalgia. 5. Anxiety. 6. Depression. 7. GERD. 8. Hypothyroidism. 9. Osteoarthritis. 10. Question of cognitive impairment versus mild dementia. MEDICATIONS: 1. Namenda XR 28 mg p.o. daily. 2. Magnesium citrate 30 mL p.o. q.i.d. 3. Synthroid 150 mcg p.o. daily. 4. Vitamin D 1000 units daily. 5. Xanax 0.5 mg p.o. t.i.d. as needed. 6. Multivitamin daily. 7. Tylenol 650 mg every 6 hours as needed. 8. Tramadol 100 mg daily. 9. Wellbutrin SR 150 mg p.o. b.i.d. 10. Pepcid 20 mg p.o. b.i.d. ALLERGIES: ADHESIVE TAPE, CONTRAST, SULFA. FAMILY HISTORY: Father in his 80s from dementia. Mother in early 60s related to end-stage renal disease and diabetes. SOCIAL HISTORY: Patient states she lives alone. 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 She has 2 grown children. She occasionally drinks. She quit smoking back in June 2016 when she was diagnosed with lung cancer. At that time, she smoked a pack per day for 40 years. She is independent of her ADLs. When asking who her healthcare proxy was, she could not make a decision. Code status is full code. REVIEW OF SYSTEMS: A 14-point review of systems as mentioned in the HPI, otherwise negative. In addition to patient states she has been having headaches with buzzing in her ears and feeling fuzzy and forgetful and has fallen twice recently. PHYSICAL EXAMINATION GENERAL: No acute distress. She is emotionally labile, crying off and on. VITAL SIGNS: Temp 98, pulse rate 84, respiratory rate 16, oxygen saturation 96 % on room air, blood pressure 132/83. HEENT: Head: Normocephalic. Pupils equal and reactive, anicteric. Oropharynx : Mucous membranes are moist. NECK: Supple. No lymphadenopathy. RESPIRATORY: Clear to auscultation. No wheezes, rhonchi, or rales. Diminished breath sounds. CARDIAC: Regular rate and rhythm with ectopic beats. Soft systolic murmur heard throughout. ABDOMEN: Soft, nontender, and nondistended. EXTREMITIES: No clubbing, cyanosis, some trace edema, some mild asymmetry with mild enlargement of her right lower extremity compared to the left. NEUROLOGIC: Alert and oriented x3. No gross focal neurological deficits. LABORATORY DATA: White count 4.5, hemoglobin 12.5, hematocrit 37, platelets 233. INR 0.96. D-dimer 288. Sodium 139, potassium 3.8, chloride 101, bicarb 27 , BUN 8, creatinine 0.94, glucose 92, mag 1.8. TSH 4.22. Troponin is 0 x2. RADIOGRAPHIC DATA: EKG shows sinus tachycardia with a rate of 110 with PACs. CTA of the chest showed solitary left lower lobe basilar segmental pulmonary artery embolus, moderate sized central hernia and thickening of the wall at the mid and distal esophagus, nonspecific, although suggestive of esophagitis. Recommend clinical correlation. Chest x-ray shows no evidence for acute disease. ASSESSMENT AND PLAN: This is a 62-year-old female with a past medical history of recent diagnosis of small cell lung carcinoma in remission, who presents with heart racing and shortness of breath, found to have a pulmonary embolus. 1. Pulmonary embolus. Patient does not show any evidence of right heart strain. Her EKG and troponins are negative. She is on room air. She may have some asymmetry of her lower extremities with a recent cancer diagnosis, but in remission. The plan will be to start her on Lovenox for now and deferred to Dr. Haile in the morning for further management. We will obtain Doppler of her lower extremities. We will hold off on getting an echo with negative troponin and hemodynamically stable. 2. Headaches following ears buzzing. Patient states she was recently started on Namenda. She thinks this is making her symptoms of her heart racing worsening. We will get a head CT. Consider PT eval. There is concern for safety at home. 3. Chronic medical problems. Hypothyroidism. Resume her Synthroid. 4. Anxiety. Resume her Xanax. 5. Fibromyalgia. Continue her tramadol. 6. Gastroesophageal reflux disease. Continue her Pepcid. 7. Depression. Continue Wellbutrin. 8. Concern for dementia. Continue Namenda. 9. Abnormal CTA findings with thickening of the mid and distal esophagus. Patient does not seem to have symptoms correlated with this, would recommend followup with Dr. Haile. 10. FEN. We will place the patient on a regular diet. 11. DVT prophylaxis. Patient is going to be started on Lovenox. She is moderate risk. 12. Code status. Full code. PATIENT TIME: Greater than 50 minutes spent doing the history and physical, more than half the time was spent in direct patient contact. [id number]/CPS #: [id number] UNITED HEALTH SERVICESJaci
[2017-08-04] MEDS ORDERED: Levothyroxine TAB* 150 MCG TAB PO SCH (06:00)
--- NOTE | 2017-08-04 07:58 | RAD ---
HISTORY: Pulmonary embolism, rule out DVT COMPARISONS: April 05, 2014 TECHNIQUE: Multiple transverse and longitudinal ultrasound images were obtained of the bilateral lower extremities from the level of the common femoral vein inferiorly through to the infrapopliteal veins using grayscale, color Doppler, and spectral Doppler imaging with and without compression and with augmentation. Comparison images were obtained of the contralateral common femoral vein. FINDINGS: VEINS: The venous system of the bilateral lower extremities is compressible throughout its course, with normal flow on color Doppler imaging and normal response to augmentation on spectral Doppler imaging. The greater saphenous veins are not well visualized as noted on the previous examination. SOFT TISSUES: Unremarkable. OTHER FINDINGS: None. IMPRESSION: 1. NO RIGHT LOWER EXTREMITY DEEP VEIN THROMBOSIS. 2. NO LEFT LOWER EXTREMITY DEEP VEIN THROMBOSIS
--- NOTE | 2017-08-04 08:11 | PN ---
Subjective - Subjective Reason for Note: Progress Note History: Discharge Summary I obtained her presentation from the patient and Dr. Ida Arcos's admitting history and physical. She has had 2 weeks of rapid heart beat, she has attributed this to taking Namenda. She had 2 days of shortness of breath. She has her usual chest pains from fibromyalgia. CTA showed small left lower lobe segmental artery with a PE. This morning she has no chest pain, she has normal O2 sats on room air. She has had some symptoms of rapid heart rate overnight, but nothing on telemetry. She is not dyspneic. Active Problems: Active Problems Pulmonary embolism (Acute) I26.99 Swollen leg (Acute) M79.89 Tachycardia (Acute) R00.0 Current Medications: Current Medications Acetaminophen (Tylenol Tab*) 650 mg PO Q4H PRN PRN Reason: FEVER/PAIN Last Admin: 08/04/17 04:45 Dose: 650 mg Al Hydrox/Mg Hydrox/Simethicone (Maalox Plus*) 30 ml PO Q6H PRN PRN Reason: INDIGESTION Alprazolam (Xanax Tab*) 0.5 mg PO TID PRN PRN Reason: ANXIETY Bupropion HCl (Wellbutrin Sr Tab*) 150 mg PO BID [facility] Cholecalciferol (Vitamin D Tab*) 1,000 units PO DAILY [facility] Docusate Sodium (Colace Cap*) 100 mg PO BID PRN PRN Reason: CONSTIPATION Enoxaparin Sodium (Lovenox(*)) 100 mg SUBCUT Q12H [facility] Last Admin: 08/04/17 00:00 Dose: 100 mg Famotidine (Pepcid Tab*) 20 mg PO BID [facility] Sodium Chloride (Ns 0.9% 1000 Ml*) 1,000 mls @ 150 mls/hr IV PER RATE [facility] Last Admin: 08/03/17 23:59 Dose: 150 mls/hr Levothyroxine Sodium (Synthroid Tab*) 150 mcg PO 0600 [facility] Last Admin: 08/04/17 05:40 Dose: 150 mcg Magnesium Citrate (Citrate Of Magnesia*) 30 ml PO QID PRN PRN Reason: CONSTIPATION Memantine (Namenda Xr Cap*) 28 mg PO DAILY [facility] Multivitamins/Minerals (Theragran/Minerals Tab*) 1 tab PO DAILY [facility] Ondansetron HCl (Zofran Inj*) 4 mg IV Q4H PRN PRN Reason: NAUSEA/VOMITING Senna (Senokot Tab*) 1 tab PO BID PRN PRN Reason: CONSTIPATION Tramadol HCl (Ultram*) 100 mg PO DAILY PRN PRN Reason: PAIN Home Medications: Home Medications Medication Instructions Recorded Confirmed Type Levothyroxine TAB* [Synthroid 100 150 mcg PO DAILY 05/11/13 08/03/17 History MCG TAB*] Magnesium Citrate 30 ml PO QID 10/04/16 08/03/17 History Acetaminophen TAB* [Tylenol TAB*] 650 mg PO Q6H PRN #30 tab 03/15/17 08/03/17 Rx ALPRAZolam TAB* [Xanax TAB*] 0.5 mg PO TID PRN 08/03/17 08/03/17 History Cholecalciferol TAB* [Vitamin D 1,000 unit PO DAILY 08/03/17 08/03/17 History TAB*] Famotidine TAB* [Pepcid 20 MG TAB*] 20 mg PO BID 08/03/17 08/03/17 History Memantine XR CAP* [Namenda XR CAP*] 28 mg PO DAILY 08/03/17 08/03/17 History Multivitamins/Minerals TAB* 1 tab PO DAILY 08/03/17 08/03/17 History [Theragran/minerals TAB*] buPROPion SR TAB* [Wellbutrin SR 150 mg PO BID 08/03/17 08/03/17 History TAB*] traMADol TAB* [Ultram*] 100 mg PO DAILY 08/03/17 08/03/17 History Allergies: Allergies Allergy/AdvReac Type Severity Reaction Status Date / Time adhesive tape Allergy Rash Verified 08/03/17 18:13 Gadolinium-Containing Allergy Unknown Verified 08/03/17 18:13 Contrast Medi Reaction Details Sulfa (Sulfonamide Allergy Hives Verified 08/03/17 18:13 Antibiotics) Objective - Vital Signs Vital Signs: Vital Signs 08/03/17 08/04/17 23:24 03:27 Temperature 98.5 F 98.2 F Pulse Rate 51 80 Respiratory 20 16 Rate Blood Pressure 138/57 119/65 (mmHg) O2 Sat by Pulse 98 99 Oximetry - Intake and Output Intake and Output: Intake & Output 08/01/17 08/02/17 08/03/1708/04/18 11:59 11:59 11:59 11:59 Intake Total 1605 Output Total 0 Balance 1605 Weight 222 lb 12.8 oz Intake: IV Fluids 1055 Oral 550 Output: Urine 0 Other: # Bowel Movements 0 # Voids 0 ADLs: Meal Record Start: 08/03/17 23: 24 Freq: DAILY@0900,1400,1800 Status: Active Protocol: Created 08/03/17 23:24 System (Rec: 08/03/17 23:24 System [id number]) Intake and Output Start: 08/03/17 23: 24 Freq: DAILY@0600,1400,2200 Status: Active Protocol: Created 08/03/17 23:24 System (Rec: 08/03/17 23:24 System [id number]) Document 08/04/17 05:50 [id number] (Rec: 08/04/17 05:50 [id number]) - Physical Exam General: No Cyanosis, No Anemia, No Jaundice, No Lymphadenopathy, No Clubbing Skin: Normal: Rash Lungs and Chest: Yes: Chest Expansion Full, Chest Expansion Symetrica, Percussion Note Resonant, Vessicular Breath Sounds. No: Crackles, Wheezes Heart Rate and Rhythm: Regular JVP: Not Elevated Additional Cardiovascular: Yes: Normal Heart Sounds. No: Heart Murmur, Carotid Bruits, Pedal Edema Abdominal Exam: Yes: Soft. No: Distention, Abdominal Mass, Abdominal Tenderness , Bowel Sounds Present - Extremities Cranial Nerves II-XII Intact: Yes Limbs: Normal Power, Normal Tone - Neuro Orientation: A/O x3 Speech: Normal Results - Results Lab Results: Laboratory Results - last 24 hr 08/03/17 23:07 Troponin I 0.00 Radiology Results: Patient Name: AIDEN WILKINS Medical Record#: [id number] Ordering Physician: Boo Reyes MD Acct.#: [id number] : 1955 Age: 62 Sex: F Location: EMERGENCY DEPARTMENT Exam Date: 08/03/172002 ADM Status: REG ER Order Information: CTA CHEST Accession Number: [id number] CPT: 26435 INDICATION: Chest pain. COMPARISON: Comparison is made with a prior CT of the chest from May 12, 2017. Correlation is also made with a prior chest x-ray study from August 03, 2017. TECHNIQUE: A CT angiogram of the chest was performed with intravenous following intravenous injection of 83 ml of Omnipaque 350 nonionic contrast. Contiguous axial sections were obtained from the lung apices through the lung bases. Images were reconstructed in the coronal and sagittal planes. FINDINGS: There is an intraluminal filling defect in a solitary left lower lobe basilar segmental artery most consistent with a pulmonary embolus. No other emboli are seen. The heart is within normal limits in size. No pericardial effusion is present. The thoracic aorta is normal in caliber and demonstrates homogeneous contrast opacification. No significant enlarged mediastinal or hilar lymph nodes are seen. There is a moderate size hiatal hernia. There is nonspecific circumferential thickening of the wall of the mid and distal esophagus suggestive of esophagitis. There is a small linear density in the right upper lobe which is unchanged from the prior exam suggestive of atelectasis or scarring. There is a small infiltrate in the right middle lobe likely representing atelectasis. The lungs are otherwise clear. No pleural effusion is seen. No significant focal osseous abnormality is seen. The results of this exam were called to referring clinician. IMPRESSION: 1. SOLITARY LEFT LOWER LOBE BASILAR SEGMENTAL ARTERY PULMONARY EMBOLUS. 2. MODERATE SIZE CENTRAL HERNIA AND THICKENING OF THE WALL OF THE MID AND DISTAL ESOPHAGUS NONSPECIFIC ALTHOUGH SUGGESTIVE OF ESOPHAGITIS. RECOMMEND CLINICAL CORRELATION. <Electronically signed by Coleman Little MD in OV> 08/03/172115 Dictated By: Coleman Little MD Dictated Date/Time: 08/03/172115 Transcribed Date/Time: 08/03/172100 Copy to: CC:Monroe Haile MD; Boo Reyes MD Imaging - [facility] Imaging - [facility] [address] 1 of 2 Assessment - Problem List Assessment: Patient Problems Pulmonary embolism (Acute) Swollen leg (Acute) Tachycardia (Acute) Anxiety disorder (Chronic 12/05/13) Depression (Chronic 12/05/13) Fibromyalgia (Chronic 12/05/13) Gastroesophageal reflux disease (Chronic 12/05/13) Obesity (Chronic 12/05/13) Osteoarthritis (Chronic 12/05/13) Primary hypothyroidism (Chronic 12/05/13) Small cell carcinoma of right lung (Chronic) Tobacco abuse (Chronic 12/05/13) Plan: Pulmonary embolism (Acute) This is a small PE. I am awaiting her doppler report. She is not compromised hemodynamically. I am starting her on xarelto 15 mg bid for 3 weeks and will then change her to 20 mg qdaily. I will discuss with oncology if this requires senior care therapy Swollen leg (Acute) This is not apparent on clinical examination Small cell carcinoma of right lung (Chronic) She is managed by Dr. Hernandez - this is under control at present following radiotherapy/chemotherapy Tachycardia (Acute) She states she had the sensation of a rapid heart rate overnight, but she has had normal sinus rhythm on telemetry without tachycardia. She attributes this to Namenda - I have told her to stop this. Anxiety disorder (Chronic 12/05/13) Depression (Chronic 12/05/13) ongoing Fibromyalgia (Chronic 12/05/13) ongoing Gastroesophageal reflux disease (Chronic 12/05/13) ongoing Obesity (Chronic 12/05/13) ongoing Osteoarthritis (Chronic 12/05/13) secondary diagnosis Primary hypothyroidism (Chronic 12/05/13) secondary diagnosis Tobacco abuse (Chronic 12/05/13) states she is not smoking. I discussed the above with the patient. I explained we will start her on xarelto. I discussed the advantages (the lung cancer and its treatmenthas likely increased her chances of a PE and hence we need to protect her from a much more hemodynamically significant PE). Disadvantages: chance of hemorrhage. She has no reason to stay in an acute hospital bed. I will discharge her home and she will see me as an outpatient in a few days
[2017-08-04] MEDS ORDERED: buPROPion SR TAB.SR* 150 MG PO SCH (09:00)
[2017-08-04] MEDS ORDERED: Cholecalciferol TAB* 1000 UNITS PO SCH (09:00)
[2017-08-04] MEDS ORDERED: Famotidine TAB* 20 MG PO SCH (09:00)
[2017-08-04] MEDS ORDERED: Memantine XR CAP* 28 MG CAP.XR PO SCH (09:00)
[2017-08-04] MEDS ORDERED: Multivitamins/Minerals TAB PO SCH (09:00)
[2017-08-04 10:11] VITALS: BP 115/68
== END 2017-08-04 10:57 | disposition home or self-care (01) ==
LOC: ED 17:03 → MEDTELE 22:15
PROVIDERS: ADMIT Pediatrics; ATTEND Internal Medicine
DX: I26.99 Other pulmonary embolism without acute cor pulmonale (principal); R51 Headache; E03.9 Hypothyroidism, unspecified; F41.9 Anxiety disorder, unspecified; M79.7 Fibromyalgia; K21.9 Gastro-esophageal reflux disease without esophagitis; F32.9 Major depressive disorder, single episode, unspecified; F03.90 Unspecified dementia, unspecified severity, without behavioral disturbance, psychotic disturbance, mood disturbance, and anxiety; R06.02 Shortness of breath; I34.1 Nonrheumatic mitral (valve) prolapse; Z87.891 Personal history of nicotine dependence; R00.0 Tachycardia, unspecified; C34.90 Malignant neoplasm of unspecified part of unspecified bronchus or lung
CPT/HCPCS: 36415; 71045; 71275; 80053; 82550; 82553; 83605; 83690; 83735; 83880; 84443; 84484; 85025; 85379; 85610; 85730; 86140; 93005; 93970; 96361; 96365; 96372; 96375; 99284; A9270-GY; G0378; J1650; J2270; J3475; Q9967

== ENCOUNTER 2017-11-07 15:31 | Emergency (ER) | payer BC ==
--- NOTE | 2017-11-07 17:33 | RAD ---
INDICATION: Cough. COMPARISON: Comparison is made with prior chest x-ray study from August 03, 2017. TECHNIQUE: Dual-energy PA and lateral views of the chest were obtained. FINDINGS: The heart is within normal limits in size. Mediastinal and hilar contours appear within normal limits. The lungs are hyperinflated. There is a small infiltrate at the right lung base. No pleural effusion is seen. IMPRESSION: 1. SMALL RIGHT BASILAR INFILTRATE. 2. COPD.
[2017-11-07 17:47] LABS: ABS Basophils 0 10^3/ul (0-0.2); ABS Eosinophils 0.1 10^3/ul (0-0.6); ABS Lymphocytes 1.1 10^3/ul (1.0-4.8); ABS Monocytes 0.6 10^3/ul (0-0.8); ABS Neutrophils 3.7 10^3/ul (1.5-7.7); ABS Nucleated RBC 0 10^3/ul; Eosinophil % 2.2 % (0-6); Hematocrit 39 % (35-47); Hemoglobin 13.1 g/dl (12.0-16.0); Lymphocyte % 20.5 % (25-47); Mean Corpuscular HGB Conc 34 g/dl (31-36); Mean Corpuscular Hemoglobin 31 pg (27-31); Mean Corpuscular Volume 93 fL (80-97); Nucleated Red Blood Cells % 0; Platelet Count 222 10^3/ul (150-450); Red Blood Count 4.19 10^6/ul (4.00-5.40); Red Cell Distribution Width 13 % (10.5-15); White Blood Count 5.6 10^3/ul (3.5-10.8)
[2017-11-07 18:04] LABS: EGFR Non-African American 71.9 (>60)
[2017-11-07] MEDS ORDERED: Azithromycin TAB* 250 MG PO ONE (19:01)
[2017-11-07] MEDS ORDERED: Albuterol/Ipratropium NEB.SOL* Albuterol 2.5 MG/Ipratropium 0.5 MG 3 ML INH ONE (19:01)
[2017-11-07] MEDS ORDERED: predniSONE TAB* 20 MG PO ONE (19:01)
[2017-11-07 19:30] LABS: Urine Appearance Cloudy; Urine Blood Negative (Negative); Urine Color Yellow; Urine Ketones Trace (Negative); Urine Protein Negative (Negative); Urine Red Blood Cell Absent (Absent); Urine Specific Gravity 1.025 (1.010-1.030); Urine Urobilinogen Negative (Negative); Urine White Blood Cell 1+(6-10/hpf) (Absent)
--- NOTE | 2017-11-07 19:57 | ED ---
Respiratory - HPI Summary HPI Summary: 62-year-old female presents with cough for the past 2 days. She states she did have a history of lung cancer but has been in remission since last year. States she quit smoking last year. No history asthma or COPD. She states occasional shortness breath. She admits to wheezing. She denies any chest pain. she admits to occasional generalized headache. She also admits to suprapubic abdominal pain. She admits to nausea but denies any vomiting. She denies any diarrhea constipation. She admits pain with urination. She states concerned she has a UTI. - History of Current Complaint Chief Complaint: EDGeneral Stated Complaint: GENERAL ILLNESS Time Seen by Provider: 11/07/17 18:41 Pain Intensity: 4 Sputum Amount: None - Allergy/Home Medications Allergies/Adverse Reactions: Allergies Allergy/AdvReac Type Severity Reaction Status Date / Time adhesive tape Allergy Rash Verified 09/15/17 14:04 Gadolinium-Containing Allergy Unknown Verified 09/15/17 14:04 Contrast Medi Reaction Details Sulfa (Sulfonamide Allergy Hives Verified 09/15/17 14:04 Antibiotics) Home Medications: Home Medications Aspirin EC TAB* [Ecotrin EC Low Dose 81 MG*] 81 mg PO DAILY 11/07/17 [History Confirmed 11/07/17] DULoxetine DR CAP* [Cymbalta CAP*] 60 mg PO QAM 11/07/17 [History Confirmed ] Memantine TAB* [Namenda TAB*] 5 mg PO BID 11/07/17 [History Confirmed 11/07/17] PMH/Surg Hx/FS Hx/Imm Hx Endocrine/Hematology History: Reports: Hx Thyroid Disease - HYPOTHYROID Denies: Hx Diabetes, Hx Anemia Cardiovascular History: Reports: Hx Valvular Heart Disease - MV prolapse, Other Cardiovascular Problems/Disorders - VALVULAR HEART DISEASE(MV PROLAPSE) Denies: Hx Congestive Heart Failure, Hx Hypertension, Hx Pacemaker/ICD Respiratory History: Reports: Hx Chronic Obstructive Pulmonary Disease (COPD), Other Respiratory Problems/Disorders - LUNG CA, PT.STATES?LT.LUNG, JUST DX'D EARLIER THIS YEAR Denies: Hx Asthma GI History: Reports: Hx Gastroesophageal Reflux Disease, Hx Hiatal Hernia, Other GI Disorders - GERD, ? IBS Denies: Hx Jaundice History: Denies: Hx Dialysis, Hx Renal Disease Musculoskeletal History: Reports: Hx Arthritis - osteoarthritis in lower back, Hx Orthopedic Injury Sensory History: Reports: Hx Contacts or Glasses Denies: Hx Hearing Aid Opthamlomology History: Reports: Hx Contacts or Glasses Neurological History: Reports: Hx Nerve Disease - fibromyalgia, Other Neuro Impairments/Disorders - L5-S1 PAIN INJECTION Psychiatric History: Reports: Hx Anxiety, Hx Depression Denies: Hx Panic Disorder - Cancer History Cancer Type, Location and Year: LUNG CA Hx Chemotherapy: No Hx Radiation Therapy: No - Surgical History Surgery Procedure, Year, and Place: SEVERAL FOOT SURGERIES-([facility]) [facility]. MENISCUS REPAIR- [facility] -. Partial thyroidectomy (cyst). Rt HAND- REMOVED A PIECE OF BONE Hx Anesthesia Reactions: No - Immunization History Date of Tetanus Vaccine: unk Date of Influenza Vaccine: unk Infectious Disease History: No Infectious Disease History: Denies: Traveled Outside the [place] in Last 30 Days - Family History Known Family History: Positive: Renal Disease, Other - arthritis, CA - Social History Alcohol Use: None Alcohol Amount: 2-3 beers a couple times per week- pt seems evasive Hx Substance Use: No Substance Use Type: Reports: None Substance Use Comment - Amount & Last Used: Tramadol ER Hx Tobacco Use: Yes Smoking Status (MU): Former Smoker Type: Cigarettes Amount Used/How Often: 1 ppd Have You Smoked in the Last Year: Yes Review of Systems Negative: Fever Negative: Chest Pain Positive: Shortness Of Breath, Cough Positive: Abdominal Pain, Nausea. Negative: Vomiting, Diarrhea Positive: dysuria All Other Systems Reviewed And Are Negative: Yes Physical Exam Triage Information Reviewed: Yes Vital Signs On Initial Exam: Initial Vitals Temp Pulse Resp BP Pulse Ox 98.5 F 88 18 115/64 95 11/07/17 15:35 11/07/17 15:35 11/07/17 15:35 11/07/17 15:35 11/07/17 15:35 Vital Signs Reviewed: Yes Appearance: Positive: Well-Appearing Skin: Positive: Warm, Dry Head/Face: Positive: Normal Head/Face Inspection Eyes: Positive: Normal, EOMI, FAROOQ, Conjunctiva Clear ENT: Positive: Normal ENT inspection, Pharyngeal erythema, TMs normal, Uvula midline, Other - soft palate symmetric. Negative: Tonsillar swelling, Tonsillar exudate, Trismus, Muffled voice Respiratory/Lung Sounds: Positive: Decreased Breath Sounds, Wheezes Cardiovascular: Positive: Normal, RRR Abdomen Description: Positive: Nontender, Soft Bowel Sounds: Positive: Present Musculoskeletal: Positive: Normal Neurological: Positive: Normal Psychiatric: Positive: Normal Diagnostics - Vital Signs Vital Signs Temp Pulse Resp BP Pulse Ox 11/07/17 19:15 62 20 99 11/07/17 17:29 97.8 F 50 18 124/68 98 11/07/17 15:35 98.5 F 88 18 115/64 95 - Laboratory Lab Results: Lab Results 11/07/17 11/07/17 11/07/17 Range/Units 17:37 17:37 17:37 WBC 5.6 (3.5-10.8) 10^3/ul RBC 4.19 (4.00-5.40) 10^6/ul Hgb 13.1 (12.0-16.0) g/dl Hct 39 (35-47) % MCV 93 (80-97) fL MCH 31 (27-31) pg MCHC 34 (31-36) g/dl RDW 13 (10.5-15) % Plt Count 222 (150-450) 10^3/ul MPV 7.0 L (7.4-10.4) um3 Neut % (Auto) 66.4 (38-83) % Lymph % (Auto) 20.5 L (25-47) % Andrews % (Auto) 10.5 H (0-7) % Eos % (Auto) 2.2 (0-6) % Baso % (Auto) 0.4 (0-2) % Absolute Neuts (auto) 3.7 (1.5-7.7) 10^3/ul Absolute Lymphs (auto) 1.1 (1.0-4.8) 10^3/ul Absolute Monos (auto) 0.6 (0-0.8) 10^3/ul Absolute Eos (auto) 0.1 (0-0.6) 10^3/ul Absolute Basos (auto) 0 (0-0.2) 10^3/ul Absolute Nucleated RBC 0 10^3/ul Nucleated RBC % 0 Sodium 139 (135-145) mmol/L Potassium 4.0 (3.5-5.0) mmol/L Chloride 101 (101-111) mmol/L Carbon Dioxide 31 (22-32) mmol/L Anion Gap 7 (2-11) mmol/L BUN 15 (6-24) mg/dL Creatinine 0.81 (0.51-0.95) mg/dL Est GFR ( Amer) 87.0 (>60) Est GFR (Non-Af Amer) 71.9 (>60) BUN/Creatinine Ratio 18.5 (8-20) Glucose 95 (70-100) mg/dL Lactic Acid 0.8 (0.5-2.0) mmol/L Calcium 9.0 (8.6-10.3) mg/dL Total Bilirubin 0.30 (0.2-1.0) mg/dL AST 12 L (13-39) U/L ALT 12 (7-52) U/L Alkaline Phosphatase 90 (34-104) U/L C-Reactive Protein 24.19 H (<8.01) mg/L Total Protein 7.0 (6.4-8.9) g/dL Albumin 4.1 (3.2-5.2) g/dL Globulin 2.9 (2-4) g/dL Albumin/Globulin Ratio 1.4 (1-3) Lipase 14 (11.0-82.0) U/L Urine Color Urine Appearance Urine pH (5-9) Ur Specific [place] (1.010-1.030) Urine Protein (Negative) Urine Ketones (Negative) Urine Blood (Negative) Urine Nitrate (Negative) Urine Bilirubin (Negative) Urine Urobilinogen (Negative) Ur Leukocyte Esterase (Negative) Urine WBC (Auto) (Absent) Urine RBC (Auto) (Absent) Ur Squamous Epith Cells (Absent) Urine Bacteria (Absent) Urine Glucose (Negative) Urine Ascorbic Acid (Negative) 11/07/17 Range/Units 18:51 WBC (3.5-10.8) 10^3/ul RBC (4.00-5.40) 10^6/ul Hgb (12.0-16.0) g/dl Hct (35-47) % MCV (80-97) fL MCH (27-31) pg MCHC (31-36) g/dl RDW (10.5-15) % Plt Count (150-450) 10^3/ul MPV (7.4-10.4) um3 Neut % (Auto) (38-83) % Lymph % (Auto) (25-47) % Andrews % (Auto) (0-7) % Eos % (Auto) (0-6) % Baso % (Auto) (0-2) % Absolute Neuts (auto) (1.5-7.7) 10^3/ul Absolute Lymphs (auto) (1.0-4.8) 10^3/ul Absolute Monos (auto) (0-0.8) 10^3/ul Absolute Eos (auto) (0-0.6) 10^3/ul Absolute Basos (auto) (0-0.2) 10^3/ul Absolute Nucleated RBC 10^3/ul Nucleated RBC % Sodium (135-145) mmol/L Potassium (3.5-5.0) mmol/L Chloride (101-111) mmol/L Carbon Dioxide (22-32) mmol/L Anion Gap (2-11) mmol/L BUN (6-24) mg/dL Creatinine (0.51-0.95) mg/dL Est GFR ( Amer) (>60) Est GFR (Non-Af Amer) (>60) BUN/Creatinine Ratio (8-20) Glucose (70-100) mg/dL Lactic Acid (0.5-2.0) mmol/L Calcium (8.6-10.3) mg/dL Total Bilirubin (0.2-1.0) mg/dL AST (13-39) U/L ALT (7-52) U/L Alkaline Phosphatase (34-104) U/L C-Reactive Protein (<8.01) mg/L Total Protein (6.4-8.9) g/dL Albumin (3.2-5.2) g/dL Globulin (2-4) g/dL Albumin/Globulin Ratio (1-3) Lipase (11.0-82.0) U/L Urine Color Yellow Urine Appearance Cloudy Urine pH 5.0 (5-9) Ur Specific [place] 1.025 (1.010-1.030) Urine Protein Negative (Negative) Urine Ketones Trace A (Negative) Urine Blood Negative (Negative) Urine Nitrate Negative (Negative) Urine Bilirubin Negative (Negative) Urine Urobilinogen Negative (Negative) Ur Leukocyte Esterase 1+ A (Negative) Urine WBC (Auto) 1+(6-10/hpf) A (Absent) Urine RBC (Auto) Absent (Absent) Ur Squamous Epith Cells Present A (Absent) Urine Bacteria Absent (Absent) Urine Glucose Negative (Negative) Urine Ascorbic Acid * A (Negative) Result Diagrams: 11/07/17 17:37 11/07/17 17:37 Lab Statement: Any lab studies that have been ordered have been reviewed, and results considered in the medical decision making process. - Radiology chest Xray Interpretation: Positive (See Comments) - IMPRESSION: 1. SMALL RIGHT BASILAR INFILTRATE. 2. COPD. Radiology Interpretation Completed By: Radiologist Re-Evaluation - Re-Evaluation First Eval Re-Evaluation Time: 20:09 Change: Improved Comment: feeling better after neb treatment Disposition - Course Course Of Treatment: 62-year-old female presents with cough for the past 2 days. She states she did have a history of lung cancer but has been in remission since last year. States she quit smoking last year. No history asthma or COPD. She states occasional shortness breath. She admits to wheezing. She denies any chest pain. she admits to occasional generalized headache. She also admits to suprapubic abdominal pain. She admits to nausea but denies any vomiting. She denies any diarrhea constipation. She admits pain with urination. She states concerned she has a UTI. On exam decreased breath sounds and wheezing and lungs. Abdomen soft nontender. Chest x-ray shows infiltrate basilar. Labs white blood count normal. electrolytnes normal. Urine shows a UTI. Will place on steroid inhaler azithromycin and macrobid For UTI. Told to follow with primary. Patient understands agrees with plan. - Differential Dx - Cardiopulmonary Differential Diagnoses - Cardiopulmonary: Bronchitis, Exacerbation Of COPD, Lower Resp Infection - Diagnoses Provider Diagnoses: Pneumonia, UTI (urinary tract infection) Discharge - Sign-Out/Discharge Documenting (check all that apply): Patient Departure - Discharge Plan Condition: Good Disposition: HOME Prescriptions: Albuterol HFA INHALER* [Ventolin HFA Inhaler*] 1 puff INH Q6H PRN #1 mdi PRN Reason: Cough Azithromycin TAB* [Zithromax TAB (Z-CHAU) 250 mg #6 tabs] 250 mg PO DAILY #4 tab Nitrofurantoin Monohyd/M-Cryst [Macrobid 100 mg Capsule] 100 mg PO BID #13 cap predniSONE TAB* [Deltasone TAB*] 50 mg PO DAILY #4 tab Patient Education Materials: Urinary Tract Infection in Women (ED), Pneumonia ( ED) Referrals: Monroe Haile MD [Primary Care Provider] - Additional Instructions: Use inhaler up to two puffs every 4 hours for cough and wheezing Take steroid once a day for 4 more days starting tomorrow Take azithromycin once daily starting tomorrow for 4 days take macrobid twice a day for 7 days Take Tylenol for pain every 6 hours Return to ED if develop severe shortness of breath, worsening chest pain, or any new or worsening symptoms - Billing Disposition and Condition Condition: GOOD Disposition: Home
[2017-11-07] MEDS ORDERED: Nitrofurantoin Macrocrystals* 100 MG CAP PO ONE (20:00)
[2017-11-07] MEDS ORDERED: A lbuterol Hfa (PREPAK) 1 MDI - ED TAKE HOME DISPENSING ONLY INHH ONE (20:07)
[2017-11-07 20:38] VITALS: BP 123/97
== END 2017-11-07 20:36 | disposition home or self-care (01) ==
LOC: ED 15:31
DX: J18.9 Pneumonia, unspecified organism (principal); N39.0 Urinary tract infection, site not specified; J44.9 Chronic obstructive pulmonary disease, unspecified; Z85.118 Personal history of other malignant neoplasm of bronchus and lung; Z87.891 Personal history of nicotine dependence; Z88.2 Allergy status to sulfonamides; Z91.041 Radiographic dye allergy status
CPT/HCPCS: 36415; 71046; 80053; 81003; 81015; 83605; 83690; 85025; 86140; 87086; 99281; A9270-GY; J7512

== ENCOUNTER 2018-02-11 12:15 | Emergency (ER) | payer BC ==
--- NOTE | 2018-02-11 13:20 | ED ---
Abdominal Pain/Female - HPI Summary HPI Summary: The pt is a 62 y/o female [facility] c/o diffuse abdominal pain since 3 days ago worsened today. She notes constipation, back pain, dehydration, GARRETT, nausea, chronic LE pain but denies fever, chills, and dysuria.The pain rated 10/ 10 in severity is described as twisting. She used MiraLAX and suppositories for the constipation to no relief. - History of Current Complaint Chief Complaint: EDAbdPain Stated Complaint: ABD/BACK PAIN Time Seen by Provider: 02/11/18 13:11 Hx Obtained From: Patient ?: No Onset/Duration: Lasting Days - 3 days, Still Present, Worse Since - Today morning Timing: Constant Severity Initially: Severe Severity Currently: Severe Pain Intensity: 10 Pain Scale Used: 0-10 Numeric Location: Diffuse Radiates: Yes Radiates to: Back Character: Other: - "Twisting" Associated Signs and Symptoms: Positive: Back Pain, Constipation, Nausea. Negative: Fever, Urinary Symptoms Allergies/Adverse Reactions: Allergies Allergy/AdvReac Type Severity Reaction Status Date / Time adhesive tape Allergy Rash Verified 02/11/18 12:21 Gadolinium-Containing Allergy Unknown Verified 02/11/18 12:21 Contrast Medi Reaction Details Sulfa (Sulfonamide Allergy Hives Verified 02/11/18 12:21 Antibiotics) PMH/Surg Hx/FS Hx/Imm Hx Previously Healthy: No Endocrine/Hematology History: Reports: Hx Thyroid Disease - HYPOTHYROID Denies: Hx Diabetes, Hx Anemia Cardiovascular History: Reports: Hx Valvular Heart Disease - MV prolapse, Other Cardiovascular Problems/Disorders - VALVULAR HEART DISEASE(MV PROLAPSE) Denies: Hx Congestive Heart Failure, Hx Hypertension, Hx Pacemaker/ICD Respiratory History: Reports: Hx Chronic Obstructive Pulmonary Disease (COPD), Other Respiratory Problems/Disorders - LUNG CA, PT.STATES?LT.LUNG, JUST DX'D EARLIER THIS YEAR Denies: Hx Asthma GI History: Reports: Hx Gastroesophageal Reflux Disease, Hx Hiatal Hernia, Other GI Disorders - GERD, ? IBS Denies: Hx Jaundice History: Denies: Hx Dialysis, Hx Renal Disease Musculoskeletal History: Reports: Hx Arthritis - osteoarthritis in lower back, Hx Orthopedic Injury Sensory History: Reports: Hx Contacts or Glasses Denies: Hx Hearing Aid Opthamlomology History: Reports: Hx Contacts or Glasses Neurological History: Reports: Hx Nerve Disease - fibromyalgia, Other Neuro Impairments/Disorders - L5-S1 PAIN INJECTION Psychiatric History: Reports: Hx Anxiety, Hx Depression Denies: Hx Panic Disorder - Cancer History Cancer Type, Location and Year: Lung Cancer Hx Chemotherapy: Yes - Lung Cancer-2017 Hx Radiation Therapy: Yes - Surgical History Surgery Procedure, Year, and Place: SEVERAL FOOT SURGERIES-([facility]) [facility]. MENISCUS REPAIR- [facility] -. Partial thyroidectomy (cyst). Rt HAND- REMOVED A PIECE OF BONE Hx Anesthesia Reactions: No - Immunization History Date of Tetanus Vaccine: unk Date of Influenza Vaccine: unk Immunizations Up to Date: Yes Infectious Disease History: No Infectious Disease History: Denies: Traveled Outside the [place] in Last 30 Days - Family History Known Family History: Positive: Renal Disease, Other - arthritis, [place] - Social History Occupation: Retired Lives: Alone Alcohol Use: Rare Alcohol Amount: 2-3 beers a couple times per week- pt seems evasive Hx Substance Use: No Substance Use Type: Reports: None Substance Use Comment - Amount & Last Used: Tramadol ER Hx Tobacco Use: Yes Smoking Status (MU): Former Smoker Type: Cigarettes Amount Used/How Often: 1 ppd Have You Smoked in the Last Year: Yes Review of Systems Constitutional: Negative - Positive: Dehydration Negative: Fever, Chills Gastrointestinal: Other - Positive: Constipation Positive: Abdominal Pain, Nausea Negative: dysuria Musculoskeletal: Other - Positive: Back pain , bilateral LE pain Positive: Headache All Other Systems Reviewed And Are Negative: Yes Physical Exam - Summary Physical Exam Summary: General: well-appearing,.mild pain distress Skin: warm, color reflects adequate perfusion, dry Head: normal Eyes: EOMI, FAROOQ ENT: normal Neck: supple, nontender Respiratory: CTA, breath sounds present Cardiovascular: RRR Abdomen: soft. tender in the periumbilical region Bowel: Hypoactive bowel sounds Musculoskeletal: normal, strength/ROM intact Neurological: sensory/motor intact, A&O x3 Psychological: affect/mood appropriate Triage Information Reviewed: Yes Vital Signs On Initial Exam: Initial Vitals Temp Pulse Resp BP Pulse Ox 98.7 F 98 14 128/70 98 02/11/18 12:17 02/11/18 12:17 02/11/18 12:17 02/11/18 12:17 02/11/18 12:17 Vital Signs Reviewed: Yes Diagnostics - Vital Signs Vital Signs Temp Pulse Resp BP Pulse Ox 02/11/18 12:17 98.7 F 98 14 128/70 98 - Laboratory Result Diagrams: 02/11/18 13:33 02/11/18 13:33 Lab Statement: Any lab studies that have been ordered have been reviewed, and results considered in the medical decision making process. - CT Abd /Pel CT CT Interpretation Completed By: Radiologist - IMPRESSION: 1. NO EVIDENCE FOR ACUTE FINDING. 2. FINDINGS SUGGESTIVE OF PARAMEDIASTINAL FIBROSIS, UNCHANGED. 3. MODERATE SIZE HIATAL HERNIA, UNCHANGED. 4. SMALL PERIUMBILICAL HERNIA CONTAINING FAT, UNCHANGED. 5. 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 The ED physician reviewed this radiology report. Abdominal Pain Fem Course/Dx - Course Course Of Treatment: DISCUSSED RESULTS WITH THE PATIENT. AFTER SOAP SUDS ENEMA , PATIENT DID HAVE SOME BM AND FEELS IMPROVED. HOME WITH MAG CITRATE AND A FLEETS ENEMA. F/U PMD; RETURN IF WORSE. - Diagnoses Provider Diagnoses: Constipation, Abdominal pain Discharge - Sign-Out/Discharge Documenting (check all that apply): Patient Departure - DC - Discharge Plan Condition: Stable Disposition: HOME Patient Education Materials: Constipation (ED), Acute Abdominal Pain (ED) Referrals: Monroe Haile MD [Primary Care Provider] - Additional Instructions: FOLLOW UP WITH YOUR DOCTOR IF NOT COMPLETELY IMPROVED. RETURN TO THE EMERGENCY DEPARTMENT FOR ANY WORSENING OF YOUR CONDITION OR QUESTIONS OR CONCERNS. - Billing Disposition and Condition Condition: STABLE Disposition: Home - Attestation Statements Document Initiated by Braydenibchemo: Yes Documenting Scribe: Rosario Anderson Provider For Whom Kayla is Documenting (Include Credential): Dr. Viktor Fitzpatrick MD Scribe Attestation: Rosario Giles , scribed for Dr. Viktor Fitzpatrick MD on 02/11/18 at 1856. Scribe Documentation Reviewed: Yes Provider Attestation: The documentation as recorded by the Rosario quintero accurately reflects the service I personally performed and the decisions made by me, Dr. Viktor Fitzpatrick MD
[2018-02-11] MEDS ORDERED: Morphine VIAL* 4 MG/ML VIAL (1 ml vial) IV ONE (13:26)
[2018-02-11] MEDS ORDERED: Ondansetron INJ* 2 MG/ML VIAL IV ONE (13:26)
[2018-02-11 13:43] LABS: ABS Basophils 0 10^3/ul (0-0.2); ABS Eosinophils 0.1 10^3/ul (0-0.6); ABS Lymphocytes 1.4 10^3/ul (1.0-4.8); ABS Monocytes 0.4 10^3/ul (0-0.8); ABS Neutrophils 2.8 10^3/ul (1.5-7.7); ABS Nucleated RBC 0 10^3/ul; Eosinophil % 2.3 % (0-6); Hematocrit 37 % (35-47); Hemoglobin 12.5 g/dl (12.0-16.0); Lymphocyte % 28.9 % (25-47); Mean Corpuscular HGB Conc 34 g/dl (31-36); Mean Corpuscular Hemoglobin 31 pg (27-31); Mean Corpuscular Volume 91 fL (80-97); Nucleated Red Blood Cells % 0.1; Platelet Count 250 10^3/ul (150-450); Red Blood Count 4.04 10^6/ul (4.00-5.40); Red Cell Distribution Width 14 % (10.5-15); White Blood Count 4.7 10^3/ul (3.5-10.8)
[2018-02-11 13:59] LABS: INR 0.89 (0.77-1.02)
[2018-02-11] MEDS ORDERED: Morphine INJ* 4 MG/ML 1 ML SYRINGE (NEW SYRINGE VERSION) ONE (14:00)
[2018-02-11 14:06] LABS: EGFR Non-African American 77.4 (>60)
[2018-02-11] MEDS: NS 0.9% 1000 ML* 2,000 ML IV ONE (14:14)
--- NOTE | 2018-02-11 16:00 | RAD ---
INDICATION: Periumbilical abdominal pain. COMPARISON: Comparison is made with a prior CT of the abdomen and pelvis from December 14, 2017. TECHNIQUE: A CT scan of the abdomen and pelvis was performed without intravenous and with oral contrast. Contiguous axial sections were obtained from the lung bases through the symphysis pubis. Images were reconstructed in the coronal and sagittal planes. FINDINGS: LUNG BASES: There is an interstitial infiltrate in the right paramediastinal region which is unchanged from the prior exam suggestive of fibrosis. No pleural effusion is present. LIVER: The liver is normal in size. No significant focal abnormality is seen on this noncontrast study. GALLBLADDER: No calcified gallstones are seen. BILE DUCTS: No intra or extrahepatic ductal distention is seen. SPLEEN: The spleen is normal in size without significant focal abnormality. PANCREAS: The pancreas is normal in size. No ductal distention or calcifications are seen. ADRENAL GLANDS: The adrenal glands are normal in size. KIDNEYS: The kidneys are normal in size. No renal calculi or hydronephrosis is seen. AORTA: The aorta is normal in caliber with mild calcific plaque present. LYMPH NODES: No significantly enlarged lymph nodes are seen. BOWEL: There is a moderate size hiatal hernia. The stomach, small and large bowel appear nondistended. The appendix appears to be within normal limits. There are scattered diverticuli within the colon. There is no evidence for diverticulitis or colitis. There is a small periumbilical hernia containing fat. PELVIC ORGANS: No bladder wall thickening is seen. The uterus is retroverted in position and normal in size. PERITONEUM: No free intraperitoneal air or fluid is seen. BONES: There is bilateral spondylolysis at the L5 level and grade II anterior spondylolisthesis at the L5-S1 level which appears unchanged. IMPRESSION: 1. NO EVIDENCE FOR ACUTE FINDING. 2. FINDINGS SUGGESTIVE OF PARAMEDIASTINAL FIBROSIS, UNCHANGED. 3. MODERATE SIZE HIATAL HERNIA, UNCHANGED. 4. SMALL PERIUMBILICAL HERNIA CONTAINING FAT, UNCHANGED. 5. 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
[2018-02-11] MEDS ORDERED: Sodium Phosphate ADULT ENEMA* 118 ml bottle PR ONE (18:53)
[2018-02-11] MEDS ORDERED: Magnesium CITRATE* 300 ML BTL PO ONE (18:54)
[2018-02-11 19:10] VITALS: BP 144/88
== END 2018-02-11 19:07 | disposition home or self-care (01) ==
LOC: ED 12:15
DX: K59.00 Constipation, unspecified (principal); R10.84 Generalized abdominal pain; K46.9 Unspecified abdominal hernia without obstruction or gangrene; M43.17 Spondylolisthesis, lumbosacral region; R11.0 Nausea; Z91.041 Radiographic dye allergy status; Z88.2 Allergy status to sulfonamides; Z91.048 Other nonmedicinal substance allergy status; Z87.891 Personal history of nicotine dependence
CPT/HCPCS: 36415; 74176; 80053; 83605; 83690; 83880; 85025; 85610; 85730; 86140; 96374; 96375; 99283; A9270-GY; J2270; J2405

== ENCOUNTER 2018-02-20 12:56 | Emergency (ER) | payer BC ==
[2018-02-20 14:50] LABS: ABS Basophils 0 10^3/ul (0-0.2); ABS Eosinophils 0.1 10^3/ul (0-0.6); ABS Lymphocytes 1.7 10^3/ul (1.0-4.8); ABS Monocytes 0.5 10^3/ul (0-0.8); ABS Nucleated RBC 0 10^3/ul; Hematocrit 38 % (35-47); Hemoglobin 12.9 g/dl (12.0-16.0); Lymphocyte % 31.6 % (25-47); Mean Corpuscular HGB Conc 34 g/dl (31-36); Mean Corpuscular Hemoglobin 31 pg (27-31); Mean Corpuscular Volume 90 fL (80-97); Mean Platelet Volume 7.1 fL (7.4-10.4); Nucleated Red Blood Cells % 0.1; Platelet Count 250 10^3/ul (150-450); Red Blood Count 4.18 10^6/ul (4.00-5.40); Red Cell Distribution Width 14 % (10.5-15); White Blood Count 5.3 10^3/ul (3.5-10.8)
[2018-02-20 15:08] LABS: EGFR Non-African American 85.1 (>60)
[2018-02-20] MEDS ORDERED: Acetaminophen TAB* 325 MG PO ONE (15:09)
[2018-02-20] MEDS ORDERED: Ondansetron ODT TAB* 4 MG PO ONE (15:11)
[2018-02-20] MEDS ORDERED: Ketorolac TAB * 10 MG TAB PO ONE (16:29)
--- NOTE | 2018-02-20 16:31 | ED ---
Headache - HPI Summary HPI Summary: Patient complains of geometrical patterns in bilateral vision tinajero, GARRETT behind bilateral eyes, nausea, fatigue 1 hour. Also complains of episode of weakness to left arm which she states is chronic and intermittent. Weakness of left arm is currently resolved, headache has persisted. Hx of headache with pain behind her eyes. States geometrical patterns removed. Denies fever, cough, sore throat, neck stiffness, CP, SOB, N/V/D, abdominal pain, change in urine, change in BM. Patient states history of possible PE, lung carcinoma, fibromyalgia, anxiety, GERD, hypothyroid. - History Of Current Complaint Chief Complaint: EDNeurologicalDeficit Stated Complaint: VISION PROBLEM Time Seen by Provider: 02/20/18 14:38 Hx Obtained From: Patient Onset/Duration: Sudden Onset Initially Headache Was: Moderate Currently Pain Is: Moderate Timing: Constant Character: Pressure, Typical Headache Location of Headache: Frontal Aggravating Factor: Nothing Allevating Factors: Nothing Associated Signs And Symptoms: Nausea, Visual Changes - Allergies/Home Medications Allergies/Adverse Reactions: Allergies Allergy/AdvReac Type Severity Reaction Status Date / Time adhesive tape Allergy Rash Verified 02/20/18 13:31 Sulfa (Sulfonamide Allergy Hives Verified 02/20/18 13:31 Antibiotics) PMH/Surg Hx/FS Hx/Imm Hx Endocrine/Hematology History: Reports: Hx Thyroid Disease - HYPOTHYROID Denies: Hx Diabetes, Hx Anemia Cardiovascular History: Reports: Hx Valvular Heart Disease - MV prolapse, Other Cardiovascular Problems/Disorders - VALVULAR HEART DISEASE(MV PROLAPSE) Denies: Hx Congestive Heart Failure, Hx Hypertension, Hx Pacemaker/ICD Respiratory History: Reports: Hx Chronic Obstructive Pulmonary Disease (COPD), Other Respiratory Problems/Disorders - LUNG CA, PT.STATES?LT.LUNG, JUST DX'D EARLIER THIS YEAR Denies: Hx Asthma GI History: Reports: Hx Gastroesophageal Reflux Disease, Hx Hiatal Hernia, Other GI Disorders - GERD, ? IBS Denies: Hx Jaundice History: Denies: Hx Dialysis, Hx Renal Disease Musculoskeletal History: Reports: Hx Arthritis - osteoarthritis in lower back, Hx Orthopedic Injury Sensory History: Reports: Hx Contacts or Glasses Denies: Hx Hearing Aid Opthamlomology History: Reports: Hx Contacts or Glasses Neurological History: Reports: Hx Nerve Disease - fibromyalgia, Other Neuro Impairments/Disorders - L5-S1 PAIN INJECTION Psychiatric History: Reports: Hx Anxiety, Hx Depression Denies: Hx Panic Disorder - Cancer History Cancer Type, Location and Year: Lung Cancer Hx Chemotherapy: Yes - Lung Cancer-2017 Hx Radiation Therapy: Yes - Surgical History Surgery Procedure, Year, and Place: SEVERAL FOOT SURGERIES-([facility]) [facility]. MENISCUS REPAIR- Lt [facility] -. Partial thyroidectomy (cyst). Rt HAND- REMOVED A PIECE OF BONE Hx Anesthesia Reactions: No - Immunization History Date of Tetanus Vaccine: unk Date of Influenza Vaccine: unk Infectious Disease History: No Infectious Disease History: Denies: Traveled Outside the [place] in Last 30 Days - Family History Known Family History: Positive: Renal Disease, Other - arthritis, CA - Social History Alcohol Use: Occasionally Alcohol Amount: 2-3 beers a couple times per week- pt seems evasive Hx Substance Use: No Substance Use Type: Reports: None Substance Use Comment - Amount & Last Used: Tramadol ER Hx Tobacco Use: Yes Smoking Status (MU): Former Smoker Type: Cigarettes Amount Used/How Often: 1 ppd Have You Smoked in the Last Year: Yes Review of Systems Positive: Fatigue Eyes: Negative ENT: Negative Cardiovascular: Negative Respiratory: Negative Gastrointestinal: Negative Genitourinary: Negative Musculoskeletal: Negative Skin: Negative Positive: Headache, Weakness Psychological: Normal All Other Systems Reviewed And Are Negative: Yes Physical Exam - Summary Physical Exam Summary: Neuro exam normal. 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 Triage Information Reviewed: Yes Vital Signs On Initial Exam: Initial Vitals Temp Pulse Resp BP Pulse Ox 98.9 F 84 16 162/96 96 02/20/18 13:25 02/20/18 13:25 02/20/18 13:25 02/20/18 13:25 02/20/18 13:25 Vital Signs Reviewed: Yes Appearance: Positive: Well-Appearing Skin: Positive: Warm Head/Face: Positive: Normal Head/Face Inspection Eyes: Positive: Normal Neck: Positive: Supple Respiratory/Lung Sounds: Positive: Clear to Auscultation Cardiovascular: Positive: Normal Abdomen Description: Positive: Nontender Musculoskeletal: Positive: Normal Neurological: Positive: Normal Psychiatric: Positive: Normal AVPU Assessment: Alert - Sanjeev Coma Scale Best Eye Response: 4 - Spontaneous Best Motor Response: 6 - Obeys Commands Best Verbal Response: 5 - Oriented Coma Scale Total: 15 Diagnostics - Vital Signs Vital Signs Temp Pulse Resp BP Pulse Ox 02/20/18 13:25 98.9 F 84 16 162/96 96 - Laboratory Lab Results: Lab Results 02/20/18 02/20/18 Range/Units 14:42 14:42 WBC 5.3 (3.5-10.8) 10^3/ul RBC 4.18 (4.00-5.40) 10^6/ul Hgb 12.9 (12.0-16.0) g/dl Hct 38 (35-47) % MCV 90 (80-97) fL MCH 31 (27-31) pg MCHC 34 (31-36) g/dl RDW 14 (10.5-15) % Plt Count 250 (150-450) 10^3/ul MPV 7.1 L (7.4-10.4) fL Neut % (Auto) 56.7 (38-83) % Lymph % (Auto) 31.6 (25-47) % [place] % (Auto) 8.9 H (0-7) % Eos % (Auto) 2.0 (0-6) % Baso % (Auto) 0.8 (0-2) % Absolute Neuts (auto) 3.0 (1.5-7.7) 10^3/ul Absolute Lymphs (auto) 1.7 (1.0-4.8) 10^3/ul Absolute Monos (auto) 0.5 (0-0.8) 10^3/ul Absolute Eos (auto) 0.1 (0-0.6) 10^3/ul Absolute Basos (auto) 0 (0-0.2) 10^3/ul Absolute Nucleated RBC 0 10^3/ul Nucleated RBC % 0.1 Sodium 138 (135-145) mmol/L Potassium 4.2 (3.5-5.0) mmol/L Chloride 102 (101-111) mmol/L Carbon Dioxide 30 (22-32) mmol/L Anion Gap 6 (2-11) mmol/L BUN 13 (6-24) mg/dL Creatinine 0.70 (0.51-0.95) mg/dL Est GFR ( Amer) 102.9 (>60) Est GFR (Non-Af Amer) 85.1 (>60) BUN/Creatinine Ratio 18.6 (8-20) Glucose 95 (70-100) mg/dL Calcium 8.9 (8.6-10.3) mg/dL Total Bilirubin 0.40 (0.2-1.0) mg/dL AST 12 L (13-39) U/L ALT 12 (7-52) U/L Alkaline Phosphatase 78 (34-104) U/L Total Protein 6.8 (6.4-8.9) g/dL Albumin 4.0 (3.2-5.2) g/dL Globulin 2.8 (2-4) g/dL Albumin/Globulin Ratio 1.4 (1-3) Result Diagrams: 02/20/18 14:42 02/20/18 14:42 Lab Statement: Any lab studies that have been ordered have been reviewed, and results considered in the medical decision making process. Headache Course/Dx - Course Course Of Treatment: Patient complains of geometrical patterns in bilateral vision tinajero, GARRETT behind bilateral eyes, nausea, fatigue 1 hour. Also complains of episode of weakness to left arm which she states is chronic and intermittent. Weakness of left arm is currently resolved, headache has persisted. Hx of headache with pain behind her eyes. States geometrical patterns removed. Denies fever, cough, sore throat, neck stiffness, CP, SOB, N/ V/D, abdominal pain, change in urine, change in BM. Patient states history of possible PE, lung carcinoma, fibromyalgia, anxiety, GERD, hypothyroid. Physical exam:Neuro exam normal. 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 Vital signs within normal limits. Labs unremarkable. CT negative. Neuro exam normal. Symptoms consistent with migraine headache. Patient given migraine. Cocktail with subsequent improvement in symptoms. - Diagnoses Provider Diagnoses: Migraine headache with aura Discharge - Sign-Out/Discharge Documenting (check all that apply): Patient Departure - Discharge Plan Condition: Stable Disposition: HOME Patient Education Materials: Migraine Headache (ED) Referrals: Monroe Haile MD [Primary Care Provider] - Additional Instructions: Follow-up with primary care. Return to the ED for any new or worsening symptoms - Billing Disposition and Condition Condition: STABLE Disposition: Home
[2018-02-20 16:44] VITALS: BP 115/84
== END 2018-02-20 16:43 | disposition home or self-care (01) ==
LOC: ED 12:56
DX: G43.109 Migraine with aura, not intractable, without status migrainosus (principal); Z88.2 Allergy status to sulfonamides; Z91.048 Other nonmedicinal substance allergy status; Z87.891 Personal history of nicotine dependence
CPT/HCPCS: 36415; 70450; 80053; 85025; 99282; A9270-GY

== ENCOUNTER 2020-08-05 07:30 | Inpatient (IN) ==
[~2020-08-05 07:30] MED LIST changes: +Buffered Lidocaine 1% SYRIN 1 ml INTRADERM ONE; -Buffered Lidocaine 1% SYRIN* 3 ML/SYR SYRINGE INTRADERM ONE; +Lactated Ringers 1000 ml BAG 1,000 ML IV SCH
[2020-08-05] MEDS ORDERED: oxyCODONE/Acetamin 5/325 mg TAB PO PRN (08:33)
[2020-08-05] MEDS ORDERED: DiMENhydriNATE IV 50 mg/ml 1 ml VIAL IV PUSH PRN (08:33)
[2020-08-05] MEDS ORDERED: fentaNYL 100 mcg/2 ml 50 MCG/ML VIAL IV PRN (08:33)
[2020-08-05] MEDS ORDERED: Naloxone 0.4 mg VIAL 0.4 mg/ml 1 ml VIAL IV PRN (08:33)
[2020-08-05] MEDS ORDERED: Ondansetron 4 mg VIAL 2 MG/ML 2 ml VIAL IV PRN ×2 (08:33→15:51)
[2020-08-05] MEDS ORDERED: Dexmedetomidine 200 mcg/2 ml 2 ml VIAL (200 mcg) ONE (11:07)
[2020-08-05] MEDS ORDERED: ceFAZolin 2 GM PREMIX 2 GM/50 ML BAG ONE (11:42)
[2020-08-05] MEDS ORDERED: Buffered Lidocaine 1% SYRIN 1 ml INTRADERM ONE (11:42)
[2020-08-05] MEDS ORDERED: Midazolam 5 mg/5 ml VIAL 1 mg/ml 5 ml VIAL (5 mg) ONE (12:33)
[2020-08-05] MEDS ORDERED: Dexamethasone IV 4 MG/ML VIAL 1 ml VIAL ONE (12:34)
[2020-08-05] MEDS ORDERED: fentaNYL 100 mcg/2 ml 50 MCG/ML VIAL ONE (12:34)
[2020-08-05] MEDS ORDERED: ROPIVACAINE 5 MG/ML 30 ML BTL (0.5%) ONE (12:35)
[2020-08-05 12:50] LABS: Activated Partial Thrombo Time 17.9 seconds (26.0-38.0); INR 0.98 (0.82-1.09)
[2020-08-05] MEDS ORDERED: Ropivacaine 5 MG/ML 20 ML VIAL 0.5% (100 MG) ONE (13:14)
[2020-08-05] MEDS ORDERED: Phenylephrine 40 mcg/mL 10mL (400mcg) SYRINGE ONE ×2 (13:51→15:28)
[2020-08-05] MEDS ORDERED: Ondansetron 4 mg VIAL 2 MG/ML 2 ml VIAL ONE (14:17)
[2020-08-05] MEDS ORDERED: Propofol 10 MG/ML 20 ML BTL ONE ×2 (14:56→15:36)
[2020-08-05] MEDS ORDERED: Magnesium Hydroxide LIQ 30 ML UDC PO PRN (15:51)
[2020-08-05] MEDS ORDERED: Morphine 2 MG/ML SYRINGE IV PRN (15:51)
[2020-08-05] MEDS ORDERED: Ondansetron ODT 4 mg TAB 4 MG TAB PO PRN (15:51)
[2020-08-05] MEDS ORDERED: diPHENhydraMINE 25 mg TAB PO PRN (15:51)
[2020-08-05] MEDS ORDERED: Lactulose 30 ml UDC PO PRN (15:51)
[2020-08-05] MEDS ORDERED: diPHENhydraMINE IV 50 MG/ML 1 ml VIAL (BENADRYL) IV PRN (15:51)
[2020-08-05] MEDS ORDERED: Albuterol HFA INHALER 8 gm MDI INH PRN (16:00)
[2020-08-05] MEDS ORDERED: Dextran 70/Hypromellose Tears Eye Drops 15 ml BTL (for Artificials Tears) BOTH EYES PRN (16:00)
[2020-08-05] MEDS: Lactated Ringers 1000 ml BAG 1,000 ML IV SCH (17:20)
[2020-08-05] MEDS: Magnesium Hydroxide LIQ 30 ML UDC PO SCH (21:10)
[2020-08-05] MEDS: ceFAZolin 1 GM ADVAN 1 GM in NS 0.9% 50 ML 50 ML IVPB SCH (21:11)
[2020-08-06] MEDS: Lactated Ringers 1000 ml BAG 1,000 ML IV SCH (03:37)
[2020-08-06] MEDS: ceFAZolin 1 GM ADVAN 1 GM in NS 0.9% 50 ML 50 ML IVPB SCH ×2 (05:22→13:06)
[2020-08-06 06:29] LABS: Hematocrit 28 % (35-47); Hemoglobin 9.6 g/dL (12.0-16.0); Mean Platelet Volume 7.6 fL (7.4-10.4); Platelet Count 228 10^3/uL (150-450)
[2020-08-06 06:46] LABS: Calcium 8.3 mg/dL (8.6-10.3); EGFR African American 98.7 (>60); EGFR Non-African American 81.6 (>60); Potassium 4.1 mmol/L (3.5-5.0)
[2020-08-06] MEDS ORDERED: Vitamin THERAPEUTIC TAB PO SCH (09:00)
[2020-08-06] MEDS ORDERED: DULoxetine DR 60 mg CAP PO SCH (09:00)
[2020-08-06] MEDS: Magnesium Hydroxide LIQ 30 ML UDC PO SCH (09:54)
[2020-08-06 11:21] VITALS: BP 107/53
== END 2020-08-06 14:30 | disposition home health service (06) | DRG 470 ==
LOC: AA 11:28 → SSU 17:09
PROVIDERS: ADMIT Orthopaedic Surgery Adult Reconstructive Orthopaedic Surgery; ATTEND Orthopaedic Surgery Adult Reconstructive Orthopaedic Surgery

== ENCOUNTER 2021-05-12 07:30 | Inpatient (IN) ==
[2021-06-18] MEDS ORDERED: Famotidine IV 10 MG/ML 2 ml VIAL (20 mg) IV ONE ×2 (06:00→10:00)
[2021-06-18] MEDS ORDERED: Lactated Ringers 1000 ml BAG 1,000 ML IV SCH (06:00)
[2021-06-18] MEDS ORDERED: Levalbuterol 0.63MG/3ML NEB UNIT OF USE INH ONE ×2 (06:00→08:17)
[2021-06-18] MEDS ORDERED: Buffered Lidocaine 1% SYRIN 1 ml INTRADERM ONE (06:00)
[2021-06-18] MEDS ORDERED: Famotidine IV 10 MG/ML 2 ml VIAL (20 mg) ONE (08:18)
[2021-06-18] MEDS ORDERED: ceFAZolin 2 GM PREMIX 2 GM/50 ML BAG ONE (08:18)
[2021-06-18] MEDS ORDERED: Midazolam 2 mg/2 ml VIAL 1 mg/ml 2 ml VIAL (2 mg) ONE (09:44)
[2021-06-18] MEDS ORDERED: fentaNYL 100 mcg/2 ml 50 MCG/ML VIAL ONE ×2 (10:13→14:59)
[2021-06-18] MEDS ORDERED: Midazolam 5 mg/5 ml VIAL 1 mg/ml 5 ml VIAL (5 mg) ONE (10:13)
[2021-06-18] MEDS ORDERED: Lidocaine 2% PF 5 ML VIAL ONE ×2 (10:13→11:34)
[2021-06-18] MEDS ORDERED: ROPIVACAINE 5 MG/ML 30 ML BTL (0.5%) ONE (10:14)
[2021-06-18] MEDS ORDERED: Ropivacaine 5 MG/ML 20 ML VIAL 0.5% (100 MG) ONE (10:45)
[2021-06-18] MEDS ORDERED: Naloxone 0.4 mg VIAL 0.4 mg/ml 1 ml VIAL IV PRN (11:49)
[2021-06-18] MEDS ORDERED: HYDROmorphone 1 MG/1 ML SYRINGE IV PRN (11:49)
[2021-06-18] MEDS ORDERED: Ondansetron 4 mg VIAL 2 MG/ML 2 ml VIAL IV PRN ×2 (11:49→11:59)
[2021-06-18] MEDS ORDERED: Lactulose 30 ml UDC PO PRN (11:59)
[2021-06-18] MEDS ORDERED: Ondansetron ODT 4 mg TAB 4 MG TAB PO PRN (11:59)
[2021-06-18] MEDS ORDERED: diPHENhydraMINE IV 50 MG/ML 1 ml VIAL (BENADRYL) IV PRN (11:59)
[2021-06-18] MEDS ORDERED: diPHENhydraMINE 25 mg TAB PO PRN (11:59)
[2021-06-18] MEDS ORDERED: Magnesium Hydroxide LIQ 30 ML UDC PO PRN (11:59)
[2021-06-18] MEDS ORDERED: Propofol 10 MG/ML 20 ML BTL ONE (13:16)
[2021-06-18] MEDS: fentaNYL 100 mcg/2 ml 50 MCG/ML VIAL IV PRN ×2 (15:01→15:07)
[2021-06-18] MEDS: Lactated Ringers 1000 ml BAG 1,000 ML IV SCH (15:40)
[2021-06-18] MEDS: ceFAZolin 1 GM ADVAN 1 GM in NS 0.9% 50 ML 50 ML IVPB SCH (19:23)
[2021-06-18] MEDS: Magnesium Hydroxide LIQ 30 ML UDC PO SCH (20:22)
[2021-06-19] MEDS: Lactated Ringers 1000 ml BAG 1,000 ML IV SCH (01:53)
[2021-06-19] MEDS: ceFAZolin 1 GM ADVAN 1 GM in NS 0.9% 50 ML 50 ML IVPB SCH ×2 (04:14→11:30)
[2021-06-19 06:12] LABS: Hematocrit 29 % (35-47); Hemoglobin 9.6 g/dL (12.0-16.0); Mean Platelet Volume 7.2 fL (7.4-10.4); Platelet Count 228 10^3/uL (150-450)
[2021-06-19 06:34] LABS: Calcium 8.2 mg/dL (8.6-10.3); eGFR CKD-EPI 73.9 (>60)
[2021-06-19] MEDS: Magnesium Hydroxide LIQ 30 ML UDC PO SCH ×2 (08:31→20:49)
[2021-06-19] MEDS: Morphine ER 15 mg TAB ** extended release PO SCH ×2 (08:32→20:48)
[2021-06-19] MEDS: DULoxetine DR 60 mg CAP PO SCH (08:33)
[2021-06-19] MEDS: Vitamin THERAPEUTIC TAB PO SCH (08:33)
[2021-06-19] MEDS ORDERED: NS 0.9% 1000 ml BAG 1,000 ML IV ONE (17:58)
[2021-06-19] MEDS ORDERED: NS 0.9% 1000 ml BAG 1,000 ML IV SCH (18:15)
[2021-06-20 04:43] LABS: Hematocrit 27 % (35-47); Mean Platelet Volume 7.1 fL (7.4-10.4); Platelet Count 210 10^3/uL (150-450)
[2021-06-20 05:16] LABS: Calcium 7.8 mg/dL (8.6-10.3); eGFR CKD-EPI 81.7 (>60)
[2021-06-20] MEDS: Vitamin THERAPEUTIC TAB PO SCH (08:35)
[2021-06-20] MEDS: DULoxetine DR 60 mg CAP PO SCH (08:35)
[2021-06-20] MEDS: Morphine ER 15 mg TAB ** extended release PO SCH ×2 (08:36→20:15)
[2021-06-20] MEDS: Magnesium Hydroxide LIQ 30 ML UDC PO SCH ×2 (08:36→20:12)
[2021-06-21 05:49] LABS: Hematocrit 26 % (35-47); Hemoglobin 8.5 g/dL (12.0-16.0); Mean Platelet Volume 7.3 fL (7.4-10.4); Platelet Count 216 10^3/uL (150-450)
[2021-06-21] MEDS: Morphine ER 15 mg TAB ** extended release PO SCH ×2 (09:04→21:04)
[2021-06-21] MEDS: DULoxetine DR 60 mg CAP PO SCH (09:05)
[2021-06-21] MEDS: Vitamin THERAPEUTIC TAB PO SCH (09:05)
[2021-06-21] MEDS: Magnesium Hydroxide LIQ 30 ML UDC PO SCH ×2 (09:06→21:04)
[2021-06-22 05:59] LABS: Hematocrit 27 % (35-47); Hemoglobin 8.8 g/dL (12.0-16.0); Mean Platelet Volume 7.8 fL (7.4-10.4); Platelet Count 242 10^3/uL (150-450)
[2021-06-22] MEDS: Magnesium Hydroxide LIQ 30 ML UDC PO SCH ×2 (07:43→22:01)
[2021-06-22] MEDS: Vitamin THERAPEUTIC TAB PO SCH (08:16)
[2021-06-22] MEDS: DULoxetine DR 60 mg CAP PO SCH (08:16)
[2021-06-22] MEDS: Morphine ER 15 mg TAB ** extended release PO SCH (08:16)
[2021-06-22] MEDS ORDERED: Iohexol 350 (CONTRAST) 500 ML MDV IV ONE (09:16)
[2021-06-22 10:17] LABS: Calcium 8.2 mg/dL (8.6-10.3); Potassium 4.4 mmol/L (3.5-5.0); eGFR CKD-EPI 96.6 (>60)
[2021-06-22] MEDS ORDERED: Morphine ER 15 mg TAB ** extended release PO PRN (21:00)
[2021-06-23 04:33] LABS: Urine Appearance Clear; Urine Bilirubin Negative (Negative); Urine Blood Negative (Negative); Urine Color Yellow; Urine Ketones Negative (Negative); Urine Nitrite Negative (Negative); Urine Protein Negative (Negative); Urine Specific Gravity 1.059 (1.002-1.030); Urine Urobilinogen Negative (Negative)
[2021-06-23 04:34] LABS: Urine Glucose Negative (Negative)
[2021-06-23 06:27] LABS: Hematocrit 24 % (35-47); Hemoglobin 7.9 g/dL (12.0-16.0); Mean Platelet Volume 7.4 fL (7.4-10.4); Platelet Count 238 10^3/uL (150-450)
[2021-06-23 06:52] LABS: Calcium 8.1 mg/dL (8.6-10.3); eGFR CKD-EPI 64.8 (>60)
[2021-06-23] MEDS: DULoxetine DR 60 mg CAP PO SCH (09:07)
[2021-06-23] MEDS: Vitamin THERAPEUTIC TAB PO SCH (09:07)
[2021-06-23] MEDS: Magnesium Hydroxide LIQ 30 ML UDC PO SCH ×2 (09:09→19:50)
[2021-06-23] MEDS ORDERED: Gadoteridol (CONTRAST) 279.3 MG/ML 10 ML IV ONE (15:22)
[2021-06-24 05:47] LABS: ABS Eosinophils 0.4 10^3/ul (0-0.6); ABS Lymphocytes 1.2 10^3/ul (1.0-4.8); ABS Monocytes 0.4 10^3/ul (0-0.8); ABS Neutrophils 2.2 10^3/ul (1.5-7.7); Eosinophil % 8.5 %; Hematocrit 25 % (35-47); Hemoglobin 8.1 g/dL (12.0-16.0); Lymphocyte % 28.5 %; Mean Corpuscular HGB Conc 33 g/dL (31-36); Mean Corpuscular Hemoglobin 28 pg (27-31); Mean Corpuscular Volume 84 fL (80-97); Mean Platelet Volume 7.7 fL (7.4-10.4); Nucleated Red Blood Cells % 0.1; Platelet Count 241 10^3/uL (150-450); Red Blood Count 2.95 10^6 /uL (3.70-4.87); Red Cell Distribution Width 16 % (10-15); White Blood Count 4.2 10^3/uL (3.5-10.8)
[2021-06-24 06:29] LABS: Calcium 8.2 mg/dL (8.6-10.3); Potassium 3.8 mmol/L (3.5-5.0)
[2021-06-24] MEDS: DULoxetine DR 60 mg CAP PO SCH (07:45)
[2021-06-24] MEDS: Vitamin THERAPEUTIC TAB PO SCH (07:46)
[2021-06-24] MEDS: Magnesium Hydroxide LIQ 30 ML UDC PO SCH (07:46)
[2021-06-24 10:04] VITALS: BP 128/85
== END 2021-06-24 11:35 | disposition home or self-care (01) | DRG 470 ==
LOC: AA 06-18 08:02 → SSU 06-18 15:39
PROVIDERS: ADMIT Orthopaedic Surgery Adult Reconstructive Orthopaedic Surgery; ATTEND Orthopaedic Surgery Adult Reconstructive Orthopaedic Surgery